=== PATIENT | female | born 1945 | race Caucasian/White ===

== ENCOUNTER 2017-05-20 08:22 | Day surgery (SDC) | payer OTHER ==
[2017-05-13 14:37] VITALS: BMI 25.0
[2017-05-20 08:38] VITALS: TEMP 98
[2017-05-20] MEDS ORDERED: PROPOFOL 20 ML ONE (09:24)
[2017-05-20 10:54] VITALS: BP 115/72; PULSE 66
--- NOTE | 2017-05-25 16:30 | PATH ---
Surgical Pathology Report Patient Name: [facility]. Rec. #: [id number] /Age/Gender: 1945 (Age: 71) / F Account: [id number] Location: [facility] [place]-ENDOSCOPY Taken: 05/20/2017 Received: 05/20/2017 Reported: 05/25/2017 Physicians: Murtaza Wharton M.D. Specimen(s) Received A: BX DUODENUM B: BX ANTRUM Clinical History GERD, family history of colonic polyps Gastritis, rule out celiac disease Final Diagnosis A. DUODENUM, BIOPSY: DUODENAL MUCOSA WITH NO PATHOLOGIC FINDINGS. Note: Features suggestive of celiac disease are not identified in this biopsy. B. ANTRUM, BIOPSY: MILD CHRONIC GASTRITIS. IMMUNOSTAIN IS NEGATIVE FOR H PYLORI ORGANISMS. Electronically Signed Judy Lopez M.D. Gross Description A. Received in formalin, labeled "duodenum" are 2 wilson, irregular portions of soft tissue measuring 0.3 and 0.5 cm. in greatest dimension. The specimens are submitted in toto in one cassette. B. Received in formalin, labeled "antrum" are 2 wilson, irregular portions of soft tissue averaging 0.3 cm. in greatest dimension. The specimens are submitted in toto in one cassette. 05/21/201705/21/2017
== END 2017-05-20 10:40 | disposition home or self-care (01) ==
LOC: FASU-ENDO 08:22
PROVIDERS: ATTEND Internal Medicine Gastroenterology
PROC: 0DB68ZX Excision of Stomach, Via Natural or Artificial Opening Endoscopic, Diagnostic (ICD-10-PCS; 2017-05-20)
PROC: 0DJD8ZZ Inspection of Lower Intestinal Tract, Via Natural or Artificial Opening Endoscopic (ICD-10-PCS; principal; 2017-05-20 09:27)
PROC: 0DB98ZX Excision of Duodenum, Via Natural or Artificial Opening Endoscopic, Diagnostic (ICD-10-PCS; 2017-05-20 09:27)
DX: Z12.11 Encounter for screening for malignant neoplasm of colon (principal); Z80.0 Family history of malignant neoplasm of digestive organs; K57.30 Diverticulosis of large intestine without perforation or abscess without bleeding; K29.50 Unspecified chronic gastritis without bleeding; K44.9 Diaphragmatic hernia without obstruction or gangrene
CPT/HCPCS: 43239; G0105; 88305-TC; 88342-TC

== ENCOUNTER 2018-05-24 13:47 | Inpatient (IN) | payer OTHER ==
--- NOTE | 2018-05-24 14:14 | PDOC ---
History of Present Illness - General Chief Complaint: Respiratory Stated Complaint: RESPIRATORY Time Seen by Provider: 05/24/18 14:12 History Source: Patient - History of Present Illness Timing/Duration: reports: other Severity: reports: moderate Associated Symptoms: reports: chest pain/soreness, cough, fever/chills, muscle aches, shortness of breath. denies: earache, headache, nasal congestion, nasal drainage, sore throat, wheezing Past History - Past Medical History Allergies/Adverse Reactions: Allergies Allergy/AdvReac Type Severity Reaction Status Date / Time codeine AdvReac Mild N&V Verified 05/24/18 13:58 SEASONAL ALLERGIES Allergy Mild Cough Uncoded 05/24/18 13:58 Home Medications: Ambulatory Orders Albuterol Sulfate Inhaler - [Ventolin Hfa Inhaler -] 2 inh PO BID 05/24/18 Azithromycin 250 mg PO 05/24/18 Fluticasone Propionate [Flovent Diskus] 100 mcg IH 05/24/18 Anemia: No Asthma: No Cancer: Yes (L breast) Cardiac Disorders: No CVA: No COPD: No CHF: No Dementia: No Diabetes: No GI Disorders: Yes (GERD,bleeding ulcer) Disorders: No HTN: Yes Hypercholesterolemia: No Liver Disease: No Seizures: No Thyroid Disease: No - Surgical History Abdominal Surgery: Yes (HERNIA REPAIR) Appendectomy: Yes Cardiac Surgery: No Cholecystectomy: No Lung Surgery: No Neurologic Surgery: Yes (brain tumor) Orthopedic Surgery: No - Suicide/Smoking/Psychosocial Hx Smoking History: Never smoked Have you smoked in the past 12 months: No Hx Alcohol Use: Yes (socially) Drug/Substance Use Hx: No Substance Use Type: Alcohol Hx Substance Use Treatment: No Review of Systems - Review of Systems Constitutional: Yes: Chills, Fever Respiratory: Yes: Cough, Shortness of Breath. No: Wheezing Cardiac (ROS): Yes: Chest Pain ABD/GI: No: Diarrhea, Nausea, Vomiting *Physical Exam - Vital Signs Last Vital Signs Temp Pulse Resp BP Pulse Ox 98 F 125 H 17 156/74 95 05/24/18 13:58 05/24/18 13:58 05/24/18 13:58 05/24/18 13:58 05/24/18 13:58 - Physical Exam General Appearance: Yes: Appropriately Dressed. No: Apparent Distress HEENT: positive: Normal Voice Neck: positive: Supple. negative: Lymphadenopathy (R), Lymphadenopathy (L) Respiratory/Chest: positive: Lungs Clear, Normal Breath Sounds. negative: Respiratory Distress Cardiovascular: positive: S1, S2, Tachycardia Gastrointestinal/Abdominal: positive: Soft. negative: Tender Extremity: positive: Normal Inspection. negative: Tender, Pedal Edema Integumentary: positive: Dry, Warm Neurologic: positive: Fully Oriented, Alert, Normal Mood/Affect ED Treatment Course - LABORATORY CBC & Chemistry Diagram: 05/24/18 14:14 05/24/18 14:14 - RADIOLOGY Radiology Studies Ordered: Category Date Time Status CHEST X-RAY PORTABLE* [RAD] Stat Radiology 05/24/18 14:13 Ordered Medical Decision Making - Medical Decision Making 05/24/18 14:20 72-year-old female, history of breast cancer s/p tx remotely, HTN, here w/ mostly non-productive cough with pleuritic CP, sob, fever of 101, body aches and malaise x several days that started while she was in [facility] on vacation. Patient returned yesterday and was seen by her doctor who started her on albuterol pump, flovent, and Z-Pack with no relief per patient. Also had CXR done but states she does not know what it showed. States while in [facility], her dad from PNA and that she visited him in the ICU. No abdominal pain, diarrhea, nausea or vomiting. No palpitations, leg pain or swelling. No history of tobacco use See exam R/o PNA, less likely PE or cardiac Tachy to 125 in ED and afebrile in NAD w/ clear chest/lungs -IVF -ekg -cxr -labs including dimer -dispo pending 05/24/18 16:25 PNA on x-ray with lactate of 2.6. Abx for CAP and IVF in progress. Will repeat lactate at this time. Rest of labs including ddimer neg. Pt sating 97% on NC and appears comfortable at this time. Hospitalist contacted and pt admitted *DC/Admit/Observation/Transfer Diagnosis at time of Disposition: Pneumonia Qualifiers: Pneumonia type: due to unspecified organism Laterality: unspecified laterality Lung location: unspecified part of lung Qualified Code(s): J18.9 - Pneumonia, unspecified organism Sepsis Qualifiers: Sepsis type: sepsis due to unspecified organism Qualified Code(s): A41.9 - Sepsis, unspecified organism - Discharge Dispostion Condition at time of disposition: Fair Decision to Admit order: Yes - Referrals - Patient Instructions - Post Discharge Activity
[2018-05-24] MEDS ORDERED: ALBUTEROL SO4 2.5/IPRATROPIUM 0.5 INH SOL 3 ML VIAL.NEB. NEB ONE (14:33)
[2018-05-24 14:48] LABS: BASO % 0.8 % (0-2.0); EOS % 3.3 % (0-4.5); HEMATOCRIT 37.7 % (32.4-45.2); HEMOGLOBIN 13.4 GM/dL (10.7-15.3); LYMPH % 34.9 % (8-40); MCH 33.2 pg (25.7-33.7); MCHC 35.6 g/dl (32.0-36.0); MEAN CELL VOLUME 93.2 fl (80-96); MEAN PLT VOLUME 8.1 fl (7.5-11.1); MONO % 5.3 % (3.8-10.2); NEUT % 55.7 % (42.8-82.8); PLATELET COUNT 182 K/MM3 (134-434); RBC 4.04 M/mm3 (3.60-5.2); RDW 12.6 % (11.6-15.6); WHITE BLOOD COUNT 5.7 K/mm3 (4.0-10.0)
[2018-05-24 15:14] LABS: INR 1.19 (0.82-1.09); PROTHROMBIN TIME (PATIENT) 13.4 SEC (9.7-13.0)
[2018-05-24 15:17] LABS: ACTIVATED PTT 27.6 SECONDS (25.2-36.5)
[2018-05-24 15:20] LABS: ALBUMIN 3.9 g/dl (3.4-5.0); ANION GAP 10 (8-16); BILIRUBIN,TOTAL 0.5 mg/dL (0.2-1.0); BLOOD UREA NITROGEN 16 mg/dL (7-18); CALCIUM 9.6 mg/dL (8.5-10.1); CHLORIDE 100 mmol/L (98-107); CO2 32 mmol/L (21-32); CREATININE 0.9 mg/dL (0.55-1.02); GLUCOSE,RANDOM 172 mg/dL (74-106); POTASSIUM 3.1 mmol/L (3.5-5.1); SGOT/AST 32 U/L (15-37); SGPT/ALT 39 U/L (12-78); SODIUM 142 mmol/L (136-145); TOT PROT 7.6 g/dl (6.4-8.2)
[2018-05-24 15:23] LABS: ALK PHOS 50 U/L (45-117)
[2018-05-24] MEDS ORDERED: CEFTRIAXONE 1,000 MG in DEXTROSE 5%-WATER - 50 ML IVPB ONE (15:27)
[2018-05-24] MEDS ORDERED: ACETAMINOPHEN 1000 MG/100 ML VIAL (NON FORMULARY) IVPB ONE (15:27)
[2018-05-24] MEDS ORDERED: AZITHROMYCIN IVPB 500 MG in DEXTROSE 5%-WATER - 250 ML IVPB ONE (15:27)
--- NOTE | 2018-05-24 15:27 | PDOC ---
*Physical Exam - Vital Signs Last Vital Signs Temp Pulse Resp BP Pulse Ox 98 F 125 H 17 156/74 95 05/24/18 13:58 05/24/18 13:58 05/24/18 13:58 05/24/18 13:58 05/24/18 14:55 - Physical Exam Comments: 05/24/18 15:20 Heart rate 110, O2 sat 96% on room air Productive cough, otherwise speaking full sentences, tachypneic Lungs have coarse breath sounds throughout, decreased at both bases. There is end expiratory wheezing bilaterally, no accessory muscle use Heart is regular tachycardia Abdomen is benign No lower extremity pitting edema or calf tenderness Heart Score/ECG Review #1 ECG reviewed & interpreted by me at: 14:18 General ECG Interpretation: Sinus Rhythm, Normal Rate (110), Normal Intervals ( qtc 468), No acute ischemic changes ED Treatment Course - LABORATORY CBC & Chemistry Diagram: 05/24/18 14:14 05/24/18 14:14 - ADDITIONAL ORDERS Additional order review: Laboratory Results 05/24/18 14:41 PT with INR 13.40 H INR 1.19 H PTT (Actin FS) 27.6 05/24/18 14:14 RBC 4.04 MCV 93.2 MCHC 35.6 RDW 12.6 MPV 8.1 Neutrophils % 55.7 Lymphocytes % 34.9 Monocytes % 5.3 Eosinophils % 3.3 Basophils % 0.8 Medical Decision Making - Critical Care Time Total Critical Care Time (minutes): 30 Critical Care Statement: The care of this patient involved high complexity decision making to prevent further life threatening deterioration of the patient 's condition and/or to evaluate & treat vital organ system(s) failure or risk of failure. - Medical Decision Making 05/24/18 15:21 Patient seen and evaluated with the nurse practitioner. I agree with the overall evaluation, assessment, and management with the following summary of visit: This is a 72-year-old female with history of hypertension and breast CA status post resection and chemotherapy, was in her usual state of normal health until she travel to [facility] last week to visit sick family members, while there developed URI symptoms of nasal congestion/rhinorrhea and productive cough, returned yesterday and was having subjective fevers and chills so she was seen by her primary clinic where she was started on azithromycin and nebulizers, which is not improved her symptoms she presents here today complaining of persistent cough, shortness of breath, and feeling jittery after the nebulizers. No actual chest pain, no unilateral leg swelling or pain. Exam as noted 72-year-old female with URI symptoms, progressive cough with shortness of breath. Presentation is most concerning acute bronchitis with superimposed pneumonia. Given the recent travel, will rule out PE given the tachycardia. labs including ddimer ekg, cxr prednisone, nebs likely admit 05/24/18 16:02 No leukocytosis, white count 5.7. Lactate 2.6, but chemistries are otherwise within normal limits including troponin. D-dimer still pending. On my preliminary review of the chest x-ray, there appears to be a opacity obscuring the left heart border, suspicious for left-sided pneumonia. Started empirically on ceftriaxone and azithromycin for community-acquired pneumonia, still dyspneic but improved after nebulizers, comfortable on 2 L oxygen satting 97% on room air and now comfortably asleep. We'll move forward with admission to telemetry, but will follow-up d-dimer and CT if needed. 05/24/18 16:19 IVF resuscitation given elevated lactate. ddimer negative. vitals improved, will proceed with admission to [facility]. *DC/Admit/Observation/Transfer Diagnosis at time of Disposition: Cough, Shortness of breath - Discharge Dispostion Condition at time of disposition: Fair - Referrals - Patient Instructions - Post Discharge Activity
[2018-05-24] MEDS ORDERED: ACETAMINOPHEN INJECTION 100 ML IVPB ONE (15:30)
[2018-05-24] MEDS ORDERED: CEFTRIAXONE 1 GM/50 ML BAG ONE (15:31)
[2018-05-24] MEDS ORDERED: AZITHROMYCIN IVPB 250 ML IVPB ONE (15:31)
[2018-05-24 15:32] LABS: VENOUS PC02 45.5 mmHg (38-52); VENOUS PH 7.46 (7.32-7.42); VENOUS PO2 35.5 mmHg (28-48)
--- NOTE | 2018-05-24 15:51 | EKG ---
Test Reason : Blood Pressure : / mmHG Vent. Rate : 110 BPM Atrial Rate : 110 BPM P-R Int : 132 ms QRS Dur : 080 ms QT Int : 346 ms P-R-T Axes : 044 -04 043 degrees QTc Int : 468 ms SINUS TACHYCARDIA OTHERWISE NORMAL ECG WHEN COMPARED WITH ECG OF 08-APR-2011 03:49, NO SIGNIFICANT CHANGE WAS FOUND Confirmed by Saw Andres MD ([id number]) on 05/24/2018 3:51:20 PM Referred By: Confirmed By:Saw Andres MD
[2018-05-24] MEDS ORDERED: SODIUM CHLORIDE 500 ML IV STA (16:04)
[2018-05-24] MEDS ORDERED: predniSONE 20 MG TABLET (UD) PO ONE (16:26)
[2018-05-24] MEDS ORDERED: POTASSIUM CHLORIDE TABS 20 MEQ TABLET.ER (FP) PO ONE ×3 (16:30→22:30)
--- NOTE | 2018-05-24 16:31 | HP ---
CHIEF COMPLAINT: PCP: HISTORY OF PRESENT ILLNESS: 72 year-old female with a PMH significant for HTN and breast cancer s/p resection and chemotherapy. Traveled to [facility] last week to visit sick family member(s) in the ICU. While there developed URI symptoms of nasal congestion/rhinorrhea and productive cough. Returned to [place] yesterday and was experiencing subjective fever and chills. Seen at her primary clinic and was started on azithromycin and nebulizers, but presented today with persistent cough and SOB. ER course was notable for: (1) Tm 101 (per ELBA Encarnacion's note), p125, lactic acid 2.6 (2) K 3.1 (3) NS x 500mL x 1 (4) azithro x 1 dose; ceftriaxone x 1 dose Recent Travel: [facility] in past week visiting ICU patient PAST MEDICAL HISTORY: Hypertension Breast cancer s/p radiation GERD h/o bleeding ulcer PAST SURGICAL HISTORY: Breast cancer resection Hernia repair Brain tumor resection Social History: Smoking: never Alcohol: social Drugs: no Family History: Allergies codeine Adverse Reaction (Mild, Verified 05/24/18 13:58) N&V SEASONAL ALLERGIES Allergy (Mild, Uncoded 05/24/18 13:58) Cough HOME MEDICATIONS: Home Medications Medication Instructions Recorded Albuterol Sulfate Inhaler - 2 inh PO BID 05/24/18 [Ventolin Hfa Inhaler -] Azithromycin 250 mg PO 05/24/18 Fluticasone Propionate [Flovent 100 mcg IH 05/24/18 Diskus] REVIEW OF SYSTEMS CONSTITUTIONAL: +fever, chills Absent: fever, chills, diaphoresis, generalized weakness, malaise, loss of appetite, weight change HEENT: Absent: rhinorrhea, nasal congestion, throat pain, throat swelling, difficulty swallowing, mouth swelling, ear pain, eye pain, visual changes CARDIOVASCULAR: Absent: chest pain, syncope, palpitations, irregular heart rate, lightheadedness , peripheral edema RESPIRATORY: +cough, SOB Absent: cough, shortness of breath, dyspnea with exertion, orthopnea, wheezing, stridor, hemoptysis GASTROINTESTINAL: Absent: abdominal pain, abdominal distension, nausea, vomiting, diarrhea, constipation, melena, hematochezia GENITOURINARY: Absent: dysuria, frequency, urgency, hesitancy, hematuria, flank pain, genital pain MUSCULOSKELETAL: Absent: myalgia, arthralgia, joint swelling, back pain, neck pain SKIN: Absent: rash, itching, pallor HEMATOLOGIC/IMMUNOLOGIC: Absent: easy bleeding, easy bruising, lymphadenopathy, frequent infections ENDOCRINE: Absent: unexplained weight gain, unexplained weight loss, heat intolerance, cold intolerance NEUROLOGIC: Absent: headache, focal weakness or paresthesias, dizziness, unsteady gait, seizure, mental status changes, bladder or bowel incontinence PSYCHIATRIC: Absent: anxiety, depression, suicidal or homicidal ideation, hallucinations. PHYSICAL EXAMINATION Vital Signs - 24 hr 05/24/18 05/24/18 13:58 14:55 Temperature 98 F Pulse Rate 125 H Respiratory 17 Rate Blood Pressure 156/74 O2 Sat by Pulse 95 95 Oximetry (%) GENERAL: Awake, alert, and fully oriented, in no acute distress. HEAD: Normal with no signs of trauma. EYES: Pupils equal, round and reactive to light, extraocular movements intact, sclera anicteric, conjunctiva clear. No lid lag. EARS, NOSE, THROAT: Ears normal, nares patent, oropharynx clear without exudates. Moist mucous membranes. NECK: Normal range of motion, supple without lymphadenopathy, JVD, or masses. LUNGS: Breath sounds equal, clear to auscultation bilaterally. No wheezes, and no crackles. No accessory muscle use. HEART: Regular rate and rhythm, normal S1 and S2 without murmur, rub or gallop. ABDOMEN: Soft, nontender, not distended, normoactive bowel sounds, no guarding, no rebound, no masses. No hepatomegaly or splenomegaly. MUSCULOSKELETAL: Normal range of motion at all joints. No bony deformities or tenderness. No CVA tenderness. UPPER EXTREMITIES: 2+ pulses, warm, well-perfused. No cyanosis. No clubbing. No peripheral edema. LOWER EXTREMITIES: 2+ pulses, warm, well-perfused. No calf tenderness. No peripheral edema. NEUROLOGICAL: Cranial nerves II-XII intact. Normal speech. Normal gait. Laboratory Results - last 24 hr 05/24/18 05/24/18 05/24/18 14:14 14:14 14:14 WBC 5.7 RBC 4.04 Hgb 13.4 Hct 37.7 MCV 93.2 MCH 33.2 MCHC 35.6 RDW 12.6 Plt Count 182 MPV 8.1 Absolute Neuts (auto) 3.2 Neutrophils % 55.7 Lymphocytes % 34.9 Monocytes % 5.3 Eosinophils % 3.3 Basophils % 0.8 Nucleated RBC % 0 PT with INR INR PTT (Actin FS) D-Dimer VBG pH POC VBG pCO2 POC VBG pO2 Mixed VBG HCO3 Sodium 142 Potassium 3.1 L Chloride 100 Carbon Dioxide 32 Anion Gap 10 BUN 16 Creatinine 0.9 Creat Clearance w eGFR > 60 Random Glucose 172 H Lactic Acid Calcium 9.6 Total Bilirubin 0.5 AST 32 ALT 39 Alkaline Phosphatase 50 Creatine Kinase 49 Troponin I < 0.02 B-Natriuretic Peptide 393.23 H Total Protein 7.6 Albumin 3.9 05/24/18 05/24/18 05/24/18 14:41 14:41 14:41 WBC RBC Hgb Hct MCV MCH MCHC RDW Plt Count MPV Absolute Neuts (auto) Neutrophils % Lymphocytes % Monocytes % Eosinophils % Basophils % Nucleated RBC % PT with INR 13.40 H INR 1.19 H PTT (Actin FS) 27.6 D-Dimer 424 VBG pH 7.46 H POC VBG pCO2 45.5 POC VBG pO2 35.5 Mixed VBG HCO3 32.1 H Sodium Potassium Chloride Carbon Dioxide Anion Gap BUN Creatinine Creat Clearance w eGFR Random Glucose Lactic Acid Calcium Total Bilirubin AST ALT Alkaline Phosphatase Creatine Kinase Troponin I B-Natriuretic Peptide Total Protein Albumin 05/24/18 14:46 WBC RBC Hgb Hct MCV MCH MCHC RDW Plt Count MPV Absolute Neuts (auto) Neutrophils % Lymphocytes % Monocytes % Eosinophils % Basophils % Nucleated RBC % PT with INR INR PTT (Actin FS) D-Dimer VBG pH POC VBG pCO2 POC VBG pO2 Mixed VBG HCO3 Sodium Potassium Chloride Carbon Dioxide Anion Gap BUN Creatinine Creat Clearance w eGFR Random Glucose Lactic Acid 2.6 H* Calcium Total Bilirubin AST ALT Alkaline Phosphatase Creatine Kinase Troponin I B-Natriuretic Peptide Total Protein Albumin ASSESSMENT/PLAN: 72 year-old female with a PMH significant for HTN and breast cancer s/p resection and chemotherapy. Admitted for severe sepsis likely secondary to pneumonia. Severe sepsis likely secondary to pneumonia --Tm 101, p 125, lactic acid 2.6-->2.4, possible left-sided pneumonia v bronchitis, CXR official read unremarkable --azithro (day #1), ceftriaxone (day #1) --duonebs scheduled; albuterol neb PRN --Solumedrol 40mg q6h --NS 500 x 1 in ED; give another 1L now, then hourly rate --repeat lactic acid in 6 hours --ABG SOB, tachycardia --likely secondary to sepsis --d-dimer negative Hypertension --BP stable --not on anti-hypertensives Breast cancer --no acute issues Hypokalemia --repleted FEN Fluids: PO intake adequate Electrolytes: replete as indicated Nutrition: low sodium DVT prophylaxis: subq lovenox Physical therapy Dispo: continues to require inpatient care. Full code. Visit type - Emergency Visit Emergency Visit: Yes ED Registration Date: 05/24/18 Care time: The patient presented to the Emergency Department on the above date and was hospitalized for further evaluation of their emergent condition. - New Patient This patient is new to me today: Yes Date on this admission: 05/25/18 - Critical Care Critical Care patient: No Hospitalist Screening - Colonoscopy Questionnaire Colonoscopy Questionnaire: Colonoscopy Questionnaire - Patient: 50 - 75 years old and never had a screening colonoscopy: Unknown History of colon or rectal polyps, or CA: Unknown History of IBD, Crohn's disease or UC: Unknown History of abdominal radiation therapy as a child: Unknown - Relative: 1 with colon or rectal CA, or polyps at age 60 or younger: Unknown Colon or rectal CA diagnosed at age 45 or younger: Unknown Multiple relatives with colon or rectal CA: Unknown - Outcome: Screening Result: Negative Screen
[2018-05-24] MEDS ORDERED: predniSONE 20 MG TABLET (UD) ONE (16:34)
[2018-05-24] MEDS ORDERED: methylPREDNISolone NA SUCC 125 MG/2 ML VIAL IVPB ONE (16:37)
[2018-05-24] MEDS ORDERED: methylPREDNISolone NA SUCC 125 MG/2 ML VIAL ONE (16:40)
[2018-05-24 16:42] LABS: URINE APPEARANCE CLEAR; URINE BILIRUBIN NEGATIVE (<2.0 mg/dL); URINE COLOR LTYELLOW; URINE GLUCOSE (UA) NEGATIVE (NEGATIVE); URINE KETONE NEGATIVE (NEGATIVE); URINE LEUK ESTERASE NEGATIVE (NEGATIVE); URINE NITRITE NEGATIVE (NEGATIVE); URINE PROTEIN NEGATIVE (NEGATIVE); URINE UROBILINOGEN NEGATIVE mg/dL (0.2-1.0)
[2018-05-24] MEDS ORDERED: KCL 10 MEQ IVPB 10 MEQ/100 ML INFUS.BAG IVPB SCH (16:45)
[2018-05-24] MEDS ORDERED: SODIUM CHLORIDE 1,000 ML IV STA (17:55)
[2018-05-24] MEDS ORDERED: ALBUTEROL SO4 0.083% IH SOL 2.5 MG/3 ML VIAL.NEB. NEB PRN (17:56)
[2018-05-24 18:21] VITALS: BMI 26.2
[2018-05-24] MEDS: POTASSIUM CHLORIDE TABS 20 MEQ TABLET.ER (FP) PO SCH (18:55)
[2018-05-24] MEDS ORDERED: SODIUM CHLORIDE 1,000 ML IV SCH (19:00)
[2018-05-24] MEDS: ALBUTEROL SO4 2.5/IPRATROPIUM 0.5 INH SOL 3 ML VIAL.NEB. NEB SCH ×2 (19:00→22:28)
[2018-05-24 22:24] LABS: ARTERIAL BLD GAS O2 SATURATION 97.7 % (90-98.9); ARTERIAL BLOOD GAS BASE EXCESS 1.5 meq/l (-2-2); ARTERIAL BLOOD GAS PCO2 34.7 mmHg (35-45); ARTERIAL BLOOD GAS PO2 91.1 mmHg (70-100); ARTERIAL BLOOD GAS pH 7.46 (7.35-7.45)
[2018-05-24 22:25] LABS: ALLENS TEST POSITIVE
[2018-05-24] MEDS: methylPREDNISolone NA SUCC 40 MG/1 ML VIAL IVPUSH SCH (22:37)
[2018-05-25] MEDS: POTASSIUM CHLORIDE TABS 20 MEQ TABLET.ER (FP) PO SCH (00:19)
[2018-05-25] MEDS ORDERED: SODIUM CHLORIDE 500 ML IV STA (00:22)
[2018-05-25] MEDS: ALBUTEROL SO4 2.5/IPRATROPIUM 0.5 INH SOL 3 ML VIAL.NEB. NEB SCH ×2 (01:26→06:25)
[2018-05-25] MEDS: methylPREDNISolone NA SUCC 40 MG/1 ML VIAL IVPUSH SCH ×2 (05:49→10:07)
[2018-05-25 06:37] LABS: BASO % 0.2 % (0-2.0); HEMATOCRIT 33.5 % (32.4-45.2); HEMOGLOBIN 11.9 GM/dL (10.7-15.3); LYMPH % 9.5 % (8-40); MCH 33.5 pg (25.7-33.7); MCHC 35.5 g/dl (32.0-36.0); MEAN CELL VOLUME 94.5 fl (80-96); MEAN PLT VOLUME 8.1 fl (7.5-11.1); MONO % 1.5 % (3.8-10.2); NEUT % 88.8 % (42.8-82.8); PLATELET COUNT 163 K/MM3 (134-434); RBC 3.55 M/mm3 (3.60-5.2); RDW 12.7 % (11.6-15.6); WHITE BLOOD COUNT 10.2 K/mm3 (4.0-10.0)
[2018-05-25 07:09] LABS: CHLORIDE 105 mmol/L (98-107); POTASSIUM 3.2 mmol/L (3.5-5.1); SODIUM 140 mmol/L (136-145)
[2018-05-25 07:20] LABS: ALBUMIN 3.4 g/dl (3.4-5.0); ALK PHOS 47 U/L (45-117); ANION GAP 15 (8-16); BILIRUBIN,TOTAL 0.3 mg/dL (0.2-1.0); BLOOD UREA NITROGEN 13 mg/dL (7-18); CALCIUM 8.3 mg/dL (8.5-10.1); CO2 20 mmol/L (21-32); CREATININE 1.2 mg/dL (0.55-1.02); GLUCOSE,RANDOM 238 mg/dL (74-106); MAGNESIUM 1.5 mg/dL (1.8-2.4); SGOT/AST 23 U/L (15-37); SGPT/ALT 36 U/L (12-78); TOT PROT 7.1 g/dl (6.4-8.2)
--- NOTE | 2018-05-25 07:32 | PN ---
Physical Exam: SUBJECTIVE: Patient seen and examined. Complains of chest tightness, chest hurts from coughing. Has had the shakes from the nebulizer. OBJECTIVE: Vital Signs Period Temp Pulse Resp BP Sys/Ovalle Pulse Ox Last 24 Hr 98 F-98.5 F 88-125 17-20 133-160/74-88 94-98 GENERAL: Awake, alert, and fully oriented, in no acute distress. LUNGS: Good effort but poor air movement with diffuse wheezing HEART: Regular rate and rhythm, normal S1 and S2 ABDOMEN: Soft, nontender, not distended, normoactive bowel sounds, no guarding, no rebound MUSCULOSKELETAL: Normal range of motion at all joints. No bony deformities or tenderness. No CVA tenderness. UPPER EXTREMITIES: 2+ pulses, warm, well-perfused. No cyanosis. No clubbing. No peripheral edema. LOWER EXTREMITIES: 2+ pulses, warm, well-perfused. No calf tenderness. No peripheral edema. No calf tenderness. NEUROLOGICAL: Cranial nerves II-XII intact. Normal speech. Laboratory Results - last 24 hr 05/24/18 05/24/18 05/24/18 14:14 14:14 14:14 WBC 5.7 RBC 4.04 Hgb 13.4 Hct 37.7 MCV 93.2 MCH 33.2 MCHC 35.6 RDW 12.6 Plt Count 182 MPV 8.1 Absolute Neuts (auto) 3.2 Neutrophils % 55.7 Lymphocytes % 34.9 Monocytes % 5.3 Eosinophils % 3.3 Basophils % 0.8 Nucleated RBC % 0 PT with INR INR PTT (Actin FS) D-Dimer Puncture Site ABG pH ABG pCO2 at Pt Temp ABG pO2 at Pt Temp ABG HCO3 ABG O2 Sat (Measured) ABG O2 Content ABG Base Excess Kingsley Test VBG pH POC VBG pCO2 POC VBG pO2 Mixed VBG HCO3 O2 Delivery Device Oxygen Flow Rate Sodium 142 Potassium 3.1 L Chloride 100 Carbon Dioxide 32 Anion Gap 10 BUN 16 Creatinine 0.9 Creat Clearance w eGFR > 60 Random Glucose 172 H Lactic Acid Calcium 9.6 Total Bilirubin 0.5 AST 32 ALT 39 Alkaline Phosphatase 50 Creatine Kinase 49 Troponin I < 0.02 B-Natriuretic Peptide 393.23 H Total Protein 7.6 Albumin 3.9 Urine Color Urine Appearance Urine pH Ur Specific [place] Urine Protein Urine Glucose (UA) Urine Ketones Urine Blood Urine Nitrite Urine Bilirubin Urine Urobilinogen Ur Leukocyte Esterase 05/24/18 05/24/18 05/24/18 14:41 14:41 14:41 WBC RBC Hgb Hct MCV MCH MCHC RDW Plt Count MPV Absolute Neuts (auto) Neutrophils % Lymphocytes % Monocytes % Eosinophils % Basophils % Nucleated RBC % PT with INR 13.40 H INR 1.19 H PTT (Actin FS) 27.6 D-Dimer 424 Puncture Site ABG pH ABG pCO2 at Pt Temp ABG pO2 at Pt Temp ABG HCO3 ABG O2 Sat (Measured) ABG O2 Content ABG Base Excess Kingsley Test VBG pH 7.46 H POC VBG pCO2 45.5 POC VBG pO2 35.5 Mixed VBG HCO3 32.1 H O2 Delivery Device Oxygen Flow Rate Sodium Potassium Chloride Carbon Dioxide Anion Gap BUN Creatinine Creat Clearance w eGFR Random Glucose Lactic Acid Calcium Total Bilirubin AST ALT Alkaline Phosphatase Creatine Kinase Troponin I B-Natriuretic Peptide Total Protein Albumin Urine Color Urine Appearance Urine pH Ur Specific [place] Urine Protein Urine Glucose (UA) Urine Ketones Urine Blood Urine Nitrite Urine Bilirubin Urine Urobilinogen Ur Leukocyte Esterase 05/24/18 05/24/18 05/24/18 14:46 16:27 17:09 WBC RBC Hgb Hct MCV MCH MCHC RDW Plt Count MPV Absolute Neuts (auto) Neutrophils % Lymphocytes % Monocytes % Eosinophils % Basophils % Nucleated RBC % PT with INR INR PTT (Actin FS) D-Dimer Puncture Site ABG pH ABG pCO2 at Pt Temp ABG pO2 at Pt Temp ABG HCO3 ABG O2 Sat (Measured) ABG O2 Content ABG Base Excess Kingsley Test VBG pH POC VBG pCO2 POC VBG pO2 Mixed VBG HCO3 O2 Delivery Device Oxygen Flow Rate Sodium Potassium Chloride Carbon Dioxide Anion Gap BUN Creatinine Creat Clearance w eGFR Random Glucose Lactic Acid 2.6 H* 2.4 H* Calcium Total Bilirubin AST ALT Alkaline Phosphatase Creatine Kinase Troponin I B-Natriuretic Peptide Total Protein Albumin Urine Color Ltyellow Urine Appearance Clear Urine pH 6.0 Ur Specific [place] 1.017 Urine Protein Negative Urine Glucose (UA) Negative Urine Ketones Negative Urine Blood Negative Urine Nitrite Negative Urine Bilirubin Negative Urine Urobilinogen Negative Ur Leukocyte Esterase Negative 05/24/18 05/24/18 05/25/18 21:30 22:01 06:00 WBC 10.2 H RBC 3.55 L Hgb 11.9 Hct 33.5 MCV 94.5 MCH 33.5 MCHC 35.5 RDW 12.7 Plt Count 163 MPV 8.1 Absolute Neuts (auto) 9.0 Neutrophils % 88.8 H D Lymphocytes % 9.5 D Monocytes % 1.5 L Eosinophils % 0.0 D Basophils % 0.2 Nucleated RBC % 0 PT with INR INR PTT (Actin FS) D-Dimer Puncture Site Right radial ABG pH 7.46 H ABG pCO2 at Pt Temp 34.7 L ABG pO2 at Pt Temp 91.1 ABG HCO3 24.5 ABG O2 Sat (Measured) 97.7 ABG O2 Content 16.1 ABG Base Excess 1.5 Kingsley Test Positive VBG pH POC VBG pCO2 POC VBG pO2 Mixed VBG HCO3 O2 Delivery Device N/c Oxygen Flow Rate 2 Sodium Potassium Chloride Carbon Dioxide Anion Gap BUN Creatinine Creat Clearance w eGFR Random Glucose Lactic Acid 4.7 H* Calcium Total Bilirubin AST ALT Alkaline Phosphatase Creatine Kinase Troponin I B-Natriuretic Peptide Total Protein Albumin Urine Color Urine Appearance Urine pH Ur Specific [place] Urine Protein Urine Glucose (UA) Urine Ketones Urine Blood Urine Nitrite Urine Bilirubin Urine Urobilinogen Ur Leukocyte Esterase 05/25/18 06:00 WBC RBC Hgb Hct MCV MCH MCHC RDW Plt Count MPV Absolute Neuts (auto) Neutrophils % Lymphocytes % Monocytes % Eosinophils % Basophils % Nucleated RBC % PT with INR INR PTT (Actin FS) D-Dimer Puncture Site ABG pH ABG pCO2 at Pt Temp ABG pO2 at Pt Temp ABG HCO3 ABG O2 Sat (Measured) ABG O2 Content ABG Base Excess Kingsley Test VBG pH POC VBG pCO2 POC VBG pO2 Mixed VBG HCO3 O2 Delivery Device Oxygen Flow Rate Sodium Potassium Chloride Carbon Dioxide Anion Gap BUN Creatinine Creat Clearance w eGFR Random Glucose Lactic Acid 7.7 H* Calcium Total Bilirubin AST ALT Alkaline Phosphatase Creatine Kinase Troponin I B-Natriuretic Peptide Total Protein Albumin Urine Color Urine Appearance Urine pH Ur Specific [place] Urine Protein Urine Glucose (UA) Urine Ketones Urine Blood Urine Nitrite Urine Bilirubin Urine Urobilinogen Ur Leukocyte Esterase Current Medications Generic Name Dose Route Start Last Admin Trade Name Freq PRN Reason Stop Dose Admin Chlorhexidine Gluconate 1 applic 05/25/18 22:00 Hibiclens For Decolonization - TP HS LUANN Enoxaparin Sodium 40 mg 05/25/18 10:00 05/25/18 09:07 Lovenox - SQ 40 mg DAILY LUANN Administration Azithromycin 250 mg/ Dextrose 250 mls @ 250 mls/hr 05/25/18 10:00 IVPB 05/28/18 10:59 DAILY LUANN Ceftriaxone Sodium 1 gm/ 50 mls @ 100 mls/hr 05/25/18 10:00 05/25/18 11:03 Dextrose IVPB 100 mls/hr DAILY LUANN Administration Protocol Potassium Chloride 20 meq/ 1,010 mls @ 42 mls/hr 05/25/18 09:30 05/25/18 10: 03 Dextrose/Sodium Chloride IVPB 42 mls/hr Q24H LUANN Administration Ipratropium [place] 1 amp 05/25/18 11:34 Atrovent 0.02% Nebulizer - NEB 06/01/18 11:34 Q6H PRN DYSPEPSIA Methylprednisolone Sodium Succinate 40 mg 05/24/18 23:00 05/25/18 10:07 Solu-Medrol - IVPUSH 40 mg Q6H LUANN Administration Mupirocin 1 applic 05/25/18 10:00 Bactroban Ointment (For Decolonization) - NS 05/30/18 09:59 BID LUANN ASSESSMENT/PLAN 72 year-old female with a PMH significant for HTN and breast cancer s/p resection and chemotherapy. Admitted for severe sepsis likely secondary to pneumonia. Severe sepsis likely secondary to pneumonia v. bronchitis, possibly viral --afebrile, no leukocytosis --poor air movement and diffuse wheezing persists, titrate O2 >93% --lactic acid continues to elevate >7, possibly Type B from albuterol? serial lactic acids q6h --CT chest, abdomen, pelvis pending --continue azithro (day #2), ceftriaxone (day #2) --flu swab negative --duonebs q6h scheduled; albuterol neb PRN --continue IV steroids --ID and pulmonary following SOB, tachycardia --likely secondary to sepsis --d-dimer negative --EKG: sinus tach @ 146bpm --Echo ordered --continue telemetry monitoring --cardiology consult requested Hypertension --BP stable --not on anti-hypertensives Breast cancer --no acute issues Hypokalemia --repleted Hypomagnesemia --repleted FEN Fluids: D5NS@42mL/hr Electrolytes: replete as indicated Nutrition: low sodium DVT prophylaxis: subq lovenox Physical therapy Dispo: continues to require inpatient care. Full code. Visit type - Emergency Visit Emergency Visit: Yes ED Registration Date: 05/24/18 Care time: The patient presented to the Emergency Department on the above date and was hospitalized for further evaluation of their emergent condition. - New Patient This patient is new to me today: No - Critical Care Critical Care patient: Yes Total Critical Care Time (in minutes): 35 Critical Care Statement: The care of this patient involved high complexity decision making to prevent further life threatening deterioration of the patient 's condition and/or to evaluate & treat vital organ system(s) failure or risk of failure.
[2018-05-25] MEDS ORDERED: POTASSIUM CHLORIDE TABS 20 MEQ TABLET.ER (FP) PO ONE (09:00)
[2018-05-25] MEDS ORDERED: DEXTROSE 5%-WATER - 50 ML IVPB ONE (09:29)
[2018-05-25] MEDS ORDERED: cefTRIAXone SODIUM 1 GM VIAL ONE (09:29)
[2018-05-25] MEDS ORDERED: 1/3 NS IVPB SCH (09:30)
[2018-05-25] MEDS ORDERED: POTASSIUM CHLORIDE IVPB SCH (09:30)
[2018-05-25] MEDS ORDERED: DEXTROSE 5% IVPB SCH (09:30)
[2018-05-25] MEDS ORDERED: AZITHROMYCIN IVPB 250 MG in DEXTROSE 5%-WATER - 250 ML IVPB SCH (10:00)
[2018-05-25] MEDS ORDERED: ENOXAPARIN NA (PORCINE) 40 MG/0.4 ML DISP.SYRIN SQ SCH (10:00)
[2018-05-25] MEDS ORDERED: MAGNESIUM 2GM/50ML STERILE WATER IVPB IVPB ONE (10:00)
[2018-05-25] MEDS ORDERED: MAGNESIUM 1GM/D5W - 1 GM/100 ML IVPB IVPB SCH (10:00)
--- NOTE | 2018-05-25 10:07 | EKG ---
Test Reason : Blood Pressure : / mmHG Vent. Rate : 146 BPM Atrial Rate : 146 BPM P-R Int : 156 ms QRS Dur : 084 ms QT Int : 338 ms P-R-T Axes : 052 003 030 degrees QTc Int : 526 ms SINUS TACHYCARDIA NONSPECIFIC ST AND T WAVE ABNORMALITY ABNORMAL ECG WHEN COMPARED WITH ECG OF 24-MAY-2018 14:18, NONSPECIFIC T WAVE ABNORMALITY NOW EVIDENT IN ANTERIOR LEADS Confirmed by MONCHO ABDI, SOLEDAD ([id number]) on 05/25/2018 10:07:23 AM Referred By: Confirmed By:SOLEDAD IVAN MD
[2018-05-25] MEDS: CEFTRIAXONE 1 GM in DEXTROSE 5%-WATER - 50 ML IVPB SCH (11:03)
--- NOTE | 2018-05-25 11:31 | PN ---
Progress Note (short form) - Note Progress Note: PULMONARY CONSULTATION DICTATED 05/25/18 IMP DYSPNEA/COUGH/CONGESTION ? ACUTE ASTHMATIC BRONCHITIS,?PNEUMONIA,?VIRAL SEPSIS/SIRS ELEVATED LACTATE LEVEL TACHYCARDIA H/O BREST CA H/O MENINGIOMA S/P RESECTION HTN PLAN IV STEROIDS O2 ABX CULTURES IVF TREND LACTATE MONITOR LYTES,RENAL FUNCTION ECHO LEGIONELLA URINARY ANTIGEN DR LONG Problem List - Problems (1) Bronchitis Code(s): J40 - BRONCHITIS, NOT SPECIFIED ACUTE OR CHRONIC (2) Pneumonia Code(s): J18.9 - PNEUMONIA, UNSPECIFIED ORGANISM Qualifiers: Pneumonia type: due to unspecified organism Laterality: unspecified laterality Lung location: unspecified part of lung Qualified Code(s): J18.9 - Pneumonia, unspecified organism (3) Dyspnea and respiratory abnormalities Code(s): R06.00 - DYSPNEA, UNSPECIFIED; R06.89 - OTHER ABNORMALITIES OF BREATHING (4) Lactate blood increased Code(s): R79.89 - OTHER SPECIFIED ABNORMAL FINDINGS OF BLOOD CHEMISTRY (5) Sepsis Code(s): A41.9 - SEPSIS, UNSPECIFIED ORGANISM Qualifiers: Sepsis type: sepsis due to unspecified organism Qualified Code(s): A41.9 - Sepsis, unspecified organism (6) Tachycardia Code(s): R00.0 - TACHYCARDIA, UNSPECIFIED (7) HTN (hypertension) Code(s): I10 - ESSENTIAL (PRIMARY) HYPERTENSION (8) H/O malignant neoplasm of breast Code(s): Z85.3 - PERSONAL HISTORY OF MALIGNANT NEOPLASM OF BREAST
[2018-05-25] MEDS ORDERED: IPRATROPIUM BR 0.02% 0.5 MG/2.5 ML VIAL.NEB. NEB PRN (11:34)
[2018-05-25] MEDS ORDERED: ALBUTEROL SO4 2.5/IPRATROPIUM 0.5 INH SOL 3 ML VIAL.NEB. NEB SCH (12:00)
--- NOTE | 2018-05-25 12:01 | CONS ---
DATE OF CONSULTATION: 05/25/2018 REFERRING PHYSICIAN: Kelsey Ascencio NP HISTORY OF PRESENT ILLNESS: The patient is a 72-year-old white female with a past medical history of breast CA 19 years ago, status post lumpectomy, treated with chemotherapy ,Meningioma s/p resection, history of hypertension and nonsmoker, admitted to [facility] with complaints of a 1-week history of cough, shortness of breath, fever to 101, generalized body ache and malaise which had started for approximately 1 week. Patient also complained of pleuritic chest pain. Patient was recently in [facility]. At the time she started to develop the above symptoms. She states she had chills and had fever. She also noticed increasing shortness of breath, and wheezing. She returned home a couple of days ago and went to a local doctor, was prescribed Flovent, albuterol and Zithromax. Despite these medications she had persistent symptoms at which time she presented to the emergency room. In the ER she was treated with inhaled bronchodilators and steroids and transferred to the medical floor for further management. Of note is she was noted to have elevated lactate level on admission of 2.6,f/u was 7.7. She denies any hemoptysis. Denies any nausea, vomiting or diaphoresis. She does have a history of DVT many years ago. There is no history of pulmonary emboli in the past. She said she had a history of bronchitis in the past. Denies any history of asthma or COPD. She is a nonsmoker and there is no history of occupational exposures to chemicals or fumes in the past. PAST MEDICAL HISTORY: Again includes breast CA, status post lumpectomy, history of a brain tumor resection, meningioma, 19 years ago, history of hernia repair as well as hypertension, GERD, history of bleeding ulcer and phlebitis. REVIEW OF SYSTEMS: Positive shortness of breath. Positive cough. Positive pleuritic chest pain. Positive fever, chills. No hemoptysis. No abdominal pain. No nausea or vomiting. CURRENT MEDICATIONS: Include Solu-Medrol; Zithromax; ceftriaxone; Lovenox; albuterol; Duo-Neb; and KCL. PHYSICAL EXAMINATION: General: The patient is a well-developed, well-nourished female, awake, alert, in no acute respiratory distress. Vital Signs: She is afebrile, her blood pressure is 133/75, her heart rate is 120 and regular and O2 saturation is 97% on 2 L. HEENT: Normocephalic, atraumatic.Neck: Supple. Heart: Tachycardic. S1 and S2. Chest: A few scattered wheezes. Abdomen: Soft. Bowel sounds are positive. Extremities: No cyanosis or edema. LABORATORIES: WBC is 10.2, hemoglobin 11.9, hematocrit 33.5 with a platelet count of 163,000. INR IS 1.19. Blood gas: PH of 7.46, PCO2 of 34, PO2 of 91, a bicarbonate of 24 and a saturation of 97.7. D-dimer is 424, within normal limits. Chemistries: BUN 13, creatinine 1.2. Lactate level of 7.7. Chest x-ray reveals no infiltrates and no effusions. IMPRESSION: 1. Fever, cough, chest congestion, might be possible acute asthmatic bronchitis , possible pneumonia although chest x-ray w/o infiltrates, rule out possible viral etiology. 2. Elevated lactate level, rule out possible sepsis/sirs. 3. History of breast carcinoma, status post lumpectomy and chemotherapy. 4. Hypertension 5. H/O Meningioma s/p resection PLAN: Continue IV steroids. Inhaled bronchodilators. Will change to Atrovent solution since the patient becomes very tremulous as well as tachycardic on albuterol. Antibiotic therapy. Obtain cultures.Legionella urinary antigen, CT scan of the chest. Trend lactate level. IV fluids. Thank you. KAYLA LONG M.D. [id number] MTDD
--- NOTE | 2018-05-25 12:25 | PN ---
Progress Note (short form) - Note Progress Note: ID consult one week history of intermittent fevers and cough while in [facility] visiting her sick father returned on Wednesday and went to see her doctor who started inhalers and gave her a zpak, she felt worse yesterday and came to ED continues to cough and wheeze no recorded fevers here no pets travel to [facility] influenza screen negative no smoking history of chronic cough remote history of breast cancer s/p chemo/RT history of GERD r/o pneumonia r/o viral syndrome bronchospasm- asthmatic bronchitis agree with rocephin/zithromax blood cultures urinary antigens viral panel, rsv chest ct duplex legs- reports intermittent swelling suspect lactic acidosis is due to nebs Problem List - Problems (1) Pneumonia Code(s): J18.9 - PNEUMONIA, UNSPECIFIED ORGANISM Qualifiers: Pneumonia type: due to unspecified organism Laterality: unspecified laterality Lung location: unspecified part of lung Qualified Code(s): J18.9 - Pneumonia, unspecified organism (2) Asthmatic bronchitis Code(s): J45.909 - UNSPECIFIED ASTHMA, UNCOMPLICATED (3) Lactate blood increased Code(s): R79.89 - OTHER SPECIFIED ABNORMAL FINDINGS OF BLOOD CHEMISTRY
--- NOTE | 2018-05-25 13:34 | CON.CARD ---
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 Pt was seen and examined today in [facility] in ICU after returning from CT chest. Pt states that she has had a cough for several weeks, she saw her PMD and was given bronchodilators but the cough continued. She travelled to [facility] where her father was in the hospital for pneumonia and he while she was there. states she had cough and sob while in [facility] but wanted to come home to be treated. States her LE edema has improved since her last office visit 04/2018. Denies any chest pain, palpitations, no pnd, orthopnea. No lightheadedness, dizziness, syncope, or near syncope. ECHO 04/05/18 Interpretation Summary Mild left atrial dilatation. Normal left ventricular size. Normal right atrial size. Normal right ventricular function. Minimal aortic valve regurgitation. Normal mitral valve. Mild tricuspid valve regurgitation. Minimal pulmonic valve regurgitation. Normal sized aortic root. Doppler pattern suggests prolonged relaxation and normal left atrial pressure (8 - 14mmHg). Doppler US b/l LE 03/25/18 Summary of Findings: There is no evidence of deep or superficial vein thrombosis in the evaluated veins on the right. There is no evidence of deep or superficial vein thrombosis in the evaluated veins on the left. - History Source History Provided By: Patient, Medical Record Limitations to Obtaining History: No Limitations - Past Medical History Cardio/Vascular: Yes: HTN - Alcohol/Substance Use Hx Alcohol Use: Yes (socially) - Smoking History Smoking history: Never smoked Have you smoked in the past 12 months: No - Social History Usual Living Arrangement: With Spouse ADL: Independent History of Recent Travel: No Home Medications - Allergies Allergies/Adverse Reactions: Allergies Allergy/AdvReac Type Severity Reaction Status Date / Time codeine AdvReac Mild N&V Verified 05/24/18 13:58 SEASONAL ALLERGIES Allergy Mild Cough Uncoded 05/24/18 13:58 - Home Medications Home Medications: Ambulatory Orders Albuterol Sulfate Inhaler - [Ventolin Hfa Inhaler -] 2 inh PO BID 05/24/18 Azithromycin 250 mg PO 05/24/18 Fluticasone Propionate [Flovent Diskus] 100 mcg IH 05/24/18 Family Disease History - Family Disease History Family History: Denies Review of Systems - Review of Systems Constitutional: reports: Fever, Malaise, Weakness. denies: No Symptoms, Chills , Diaphoresis, Lethargy, Loss of Appetite, Night Sweats, Unintentional Wgt. Loss , Other Eyes: denies: No Symptoms, Blind Spots, Blurred Vision, Double Vision, Eye Pain , Floaters, Photophobia, Recent Change in Vision, Other HENT: denies: No Symptoms, Difficult Swallowing, Ear Discharge, Ear Pain, Epistaxis, Gingival Bleeding, Hearing Loss, Mouth Swelling, Nasal Congestion, Ocular Prosthesis, Throat Pain, Toothache, Ringing in Ears, Other Neck: denies: No Symptoms, Decreased ROM, Lumps, Pain on Movement, Stiffness, Swollen Glands, Tenderness, Other Cardiovascular: reports: Edema, Shortness of Breath. denies: No Symptoms, Chest Pain, Palpitations, Other Respiratory: reports: Cough, Exercise Intolerance, SOB, SOB on Exertion, Wheezing. denies: No Symptoms, Hemoptysis, Orthopnea, PND, Snoring, Other Gastrointestinal: denies: No Symptoms, Abdominal Pain, Bloating, Constipation, Diarrhea, Dysphagia, Indigestion, Melena, Nausea, Rectal Bleeding, Vomiting, Vomiting Blood, Other Genitourinary: denies: No Symptoms, Burning, Discharge, Dysuria, Flank Pain, Frequency, Hematuria, Incontinence, Lesions, Menses, Pain, Testicular Mass, Testicular Pain, Testicular Swelling, Urgency, Vaginal Bleeding, Other Breasts: denies: No Symptoms Reported, See HPI, Breast Implants, Discharge from Nipple, Lumps, Pain, Skin Changes, Other Musculoskeletal: denies: No Symptoms, Back Pain, Crepitus, Decreased ROM, Extremity Pain, Joint Pain, Joint Swelling, Muscle Pain, Muscle Cramps, Muscle Weakness, Other Integumentary: denies: No Symptoms, Blister, Bruising, Change in Color, Eczema, Erythema, Incision, Lesions, Lump, Pallor, Pruritis, Rash, Wound, Other Neurological: denies: No Symptoms, Change in LOC, Change in Speech, Confusion, Dizziness, Headache, Incoordination, Numbness, Parasthesia, Pre-Existing Deficit , Seizure, Syncope, Tremors, Unsteady Gait, Weakness, Other Endocrine: denies: No Symptoms, Excessive Sweating, Flushing, Increased Hunger, Increased Thirst, Intolerance to Cold, Intolerance to Heat, Unexplained Weight Gain, Unexplained Weight Loss, Other Hematology/Lymphatic: denies: No Symptoms, Easily Bruised, Excessive Bleeding, Swollen Glands, Other Psychiatric: denies: No Symptoms, Altered Sleep Pattern, Anxiety, Depression, Hallucinations, Panic, Paranoia, Suicidal, Other - Risk Factors Known Risk Factors: Yes: Age, Hypercholesterolemia, Hypertension Vital Signs: Vital Signs Temperature 98.4 F 05/25/18 10:00 Pulse Rate 132 H 05/25/18 10:00 Respiratory Rate 22 05/25/18 10:00 Blood Pressure 132/70 05/25/18 10:00 O2 Sat by Pulse Oximetry (%) 96 05/25/18 10:00 Constitutional: Yes: No Distress, Calm Eyes: Yes: Conjunctiva Clear, EOM Intact, PERRL HENT: Yes: Atraumatic, Normocephalic Neck: Yes: Supple, Trachea Midline Respiratory: Yes: Regular, Cough, Rhonchi, Wheezes. No: Rales, SOB Gastrointestinal: Yes: Normal Bowel Sounds, Soft. No: Distention, Tenderness Cardiovascular: Yes: Tachycardia. No: Regular Rate and Rhythm, Bradycardia, Pulse Irregular, Gallop, Rub, Varicosities JVD: No Carotid Bruit: No PMI: Non-Displaced Heart Sounds: Yes: S1, S2. No: Split S2, S3, S4, Clicks, Gallop, Rub, Bruit Murmur: No: Systolic Murmur, Diastolic Murmur Musculoskeletal: Yes: WNL Extremities: Yes: WNL Edema: LLE: Trace, RLE: Trace Peripheral Pulses WNL: Yes Peripheral Pulses: 2+ Left Doralis Pedis, 2+ Right Dorsalis Pedis Neurological: Yes: Alert, Oriented Psychiatric: Yes: Alert, Oriented - Other Data Labs, Other Data: CBC, BMP 05/25/18 06:00 05/25/18 06:00 INR, PTT INR 1.19 (0.82-1.09) H 05/24/18 14:41 Troponin, BNP 05/24/18 05/24/18 14:14 14:14 Troponin I < 0.02 B-Natriuretic Peptide 393.23 H Troponin, BNP 05/24/18 05/24/18 14:14 14:14 Troponin I < 0.02 B-Natriuretic Peptide 393.23 H ekg-sinus tach 146bpm, nonspecific ST abnl Echo: Report Reviewed Imaging - Results Chest X-ray: Report Reviewed, Image Reviewed Cat Scan: Report Reviewed, Image Reviewed EKG: Report Reviewed, Image Reviewed Other: Report Reviewed, Image Reviewed (tele-sinus tach, no sig arrhytmias) Assessment/Plan 72 year old woman with a pmh HTN, Breast Ca s/p mastectomy, chemo and RT years ago at [facility], Rheum arthritis on prednisone, 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 Pt was seen and examined today in [facility] in ICU after returning from CT chest. Pt states that she has had a cough for several weeks, she saw her PMD and was given bronchodilators but the cough continued. She travelled to [facility] where her father was in the hospital for pneumonia and he while she was there. states she had cough and sob while in [facility] but wanted to come home to be treated. States her LE edema has improved since her last office visit 04/2018. Denies any chest pain, palpitations, no pnd, orthopnea. No lightheadedness, dizziness, syncope, or near syncope. ECHO 04/05/18 Interpretation Summary Mild left atrial dilatation. Normal left ventricular size. Normal right atrial size. Normal right ventricular function. Minimal aortic valve regurgitation. Normal mitral valve. Mild tricuspid valve regurgitation. Minimal pulmonic valve regurgitation. Normal sized aortic root. Doppler pattern suggests prolonged relaxation and normal left atrial pressure (8 - 14mmHg). Doppler US b/l LE 03/25/18 Summary of Findings: There is no evidence of deep or superficial vein thrombosis in the evaluated veins on the right. There is no evidence of deep or superficial vein thrombosis in the evaluated veins on the left. Sinus tach-no arrhythmias have been seen, presume sinus tach due to SIRS/sepsis -would not medical treat sinus tach, should improve with treatment of underlying condition -CTA chest was done and reported as no definite pulmonary embolism but mild b/l groundlass interstitial markings -last echo as above showed no significant structural heart disease -fup repeat echo ordered today to evaluate for any change -recent dopplers done 03/2018 because of LE edema showed no DVT and LE edema has improved since then thus DVT unlikely -cont to monitor tele in ICU SOB/SIRS-possible sepsis -as per CCM -of note pt has h/o Breast CA and chemo/RT in the past, she has also been on steroids for treatment of her RA thus she is immunocompromised -wheezing on exam, possible bronchitis possible atypical pneumonia -no exam findings c/w acute CHF HTN-elevated at times, adequate for now -can monitor off HTN meds for now in setting of SIRS, re-introduce home BP meds as needed Will follow
--- NOTE | 2018-05-25 13:40 | CONS ---
DATE OF CONSULTATION: DATE OF DICTATION: 05/25/2018 REQUESTED BY: The hospitalist service. HISTORY OF PRESENT ILLNESS: This is a 72-year-old woman otherwise healthy. She has a remote history of breast cancer, status post chemotherapy and radiation, history of hypertension and she has some neuropathy secondary to her chemotherapy. She also has a history of GERD who went to [facility] 2 weeks ago. While she is about 1 week into her admission so about 1 week before her return she started developing cough and intermittent fever there. She took Tylenol and Motrin. This Wednesday she got on a plane and came back and she states she was coughing during the entire trip. She went to see her doctor who gave her inhalers, Flovent, albuterol and Zithromax. She felt worse after starting these medicines on Wednesday and came to the emergency room on Wednesday. There is no history of hemoptysis. She denies nausea, vomiting. She reports that she was supposed to go on this trip about 2 months ago to see her father who is sick and she developed leg swelling and at that time she had Dopplers of her legs done which were negative for DVT. Her family was also in [facility] and she says no one else was sick, that she was the only person who got sick except for her father who is in the ICU. She has no pets here. They had no pets in [facility]. She stayed with her family there in [facility]. PAST MEDICAL HISTORY: Notable for hypertension, breast cancer, status post radiation and chemotherapy 19 years ago, history of GERD, she has had a history of an ulcer in the past. SURGICAL HISTORY: Notable for meningioma resection, hernia repair and lumpectomy. SOCIAL HISTORY: There is no history of cigarette use. ALLERGIES: She is allergic to CODEINE. She has SEASONAL ALLERGIES. HOME MEDICATIONS: Include sertraline; a proton pump inhibitor; she is on blood pressure medicine and 5 mg of prednisone which she has been on for a year for a recent diagnosis of rheumatoid arthritis. FAMILY HISTORY: Noncontributory. REVIEW OF SYSTEMS: She has no diarrhea. She has had no nausea or vomiting. She has had limited oral intake and she has started feeling very shaky and uncomfortable since starting the nebulizer treatment. She had no sick contacts in [facility]. She was around young children from 3 to 13, but no one was sick. PHYSICAL EXAMINATION:Vital Signs: Temperature is 98.4. Apparently she had fever at home as high as 101. Pulse is 132, blood pressure 132/70, respiratory rate is 22, she is saturating 96% on 3 L. HEENT: She is normocephalic. Her eyes are anicteric. Neck: Supple. She has no thrush or pharyngitis. Lungs: Show scattered rhonchi and wheezes. Heart: Tachycardic. Abdomen: Soft. She has some mild midepigastric discomfort on palpation. There is no rebound or guarding. Extremities: Without edema. Her left leg looks slightly larger than her right. LABORATORIES: Notable on admission white count was 5.7, after steroids 10.2 today, platelets of 163, hemoglobin is 11.9. Her BUN is 13 and creatinine is 1.2. LFTs are normal. Lactic acid on admission was 2.6, this morning is 7.7. Urinalysis is negative. Influenza screen is negative. Blood and urine cultures are pending. Chest x-ray is negative for infiltrate. ASSESSMENT: In summary this is a 72-year-old woman with a 1-week syndrome of fever and cough consistent with possible pneumonia, possible viral syndrome. She is quite bronchospastic. RECOMMENDATIONS: I would agree with Rocephin and Zithromax. Influenza screen has been sent and is negative. Would order viral panel as well as RSV. Chest CT has been ordered as well. Would get duplex of her legs given she has reported intermittent swelling and she did have this recent travel. Further recommendations to follow. Nina KELLY/[id number]
[2018-05-25] MEDS ORDERED: ENOXAPARIN NA (PORCINE) 60 MG/0.6 ML DISP.SYRIN SQ SCH ×2 (14:15→22:00)
--- NOTE | 2018-05-25 14:19 | CONSULT ---
Consultation: REQUESTING PROVIDER: CONSULT REQUEST: We have been asked to medically evaluate this patient for (ICU Admission). HISTORY OF PRESENT ILLNESS: 72 yo female admitted to the ICU with SOB, cough, tachycardia and elevated b.p. She states that she recently returned from [facility] after going to visit a sick family member. She developed symptoms of a URI while there, traveled back, and was seen by her PCP. She was given azithromycin and nebulizers, but felt she was getting worse and presented to the ED. PMH of HTN and Breast CA s/p chemotherapy and radiation therapy. REVIEW OF SYSTEMS: CONSTITUTIONAL: fever Absent: chills, diaphoresis, generalized weakness, malaise, loss of appetite, weight change HEENT: rhinorrhea, nasal congestion Absent: throat pain, throat swelling, difficulty swallowing, mouth swelling, ear pain, eye pain, visual changes CARDIOVASCULAR: Absent: chest pain, syncope, palpitations, irregular heart rate, lightheadedness , peripheral edema RESPIRATORY: cough, shortness of breath Absent: dyspnea with exertion, orthopnea, wheezing, stridor, hemoptysis GASTROINTESTINAL: Absent: abdominal pain, abdominal distension, nausea, vomiting, diarrhea, constipation, melena, hematochezia GENITOURINARY: Absent: dysuria, frequency, urgency, hesitancy, hematuria, flank pain, genital pain MUSCULOSKELETAL: Absent: myalgia, arthralgia, joint swelling, back pain, neck pain SKIN: Absent: rash, itching, pallor HEMATOLOGIC/IMMUNOLOGIC: Absent: easy bleeding, easy bruising, lymphadenopathy, frequent infections ENDOCRINE: Absent: unexplained weight gain, unexplained weight loss, heat intolerance, cold intolerance NEUROLOGIC: Absent: headache, focal weakness or paresthesias, dizziness, unsteady gait, seizure, mental status changes, bladder or bowel incontinence PSYCHIATRIC: Absent: anxiety, depression, suicidal or homicidal ideation, hallucinations. PHYSICAL EXAMINATION Vital Signs - 24 hr 05/24/18 05/24/18 05/24/18 14:55 17:50 21:00 Temperature 98.5 F 98.2 F Pulse Rate 88 106 H Respiratory 20 18 Rate Blood Pressure 152/81 160/88 O2 Sat by Pulse 95 98 94 L Oximetry (%) 05/25/18 05/25/18 05/25/18 01:00 05:00 08:00 Temperature 98.4 F 98.4 F 98.8 F Pulse Rate 124 H 120 H 152 H Respiratory 18 20 22 Rate Blood Pressure 140/80 133/75 145/70 O2 Sat by Pulse Oximetry (%) 05/25/18 10:00 Temperature 98.4 F Pulse Rate 132 H Respiratory 22 Rate Blood Pressure 132/70 O2 Sat by Pulse 96 Oximetry (%) GENERAL: Awake, alert, and fully oriented, in no acute distress. HEAD: Normal with no signs of trauma. EYES: PERRL, sclera anicteric, conjunctiva clear. No lid lag. EARS, NOSE, THROAT: Ears normal, nares patent, oropharynx clear without exudates. Moist mucous membranes. NECK: JVD noted on exam, supple without lymphadenopathy, or masses. LUNGS: Crackles and expiratory wheezes throughout HEART: Tachycardic, regular rhythm, normal S1 and S2 without murmur, rub or gallop. ABDOMEN: Soft, nontender, not distended, normoactive bowel sounds, no guarding, no rebound, no masses. No hepatomegaly or splenomegaly. MUSCULOSKELETAL: Normal range of motion at all joints. No bony deformities or tenderness. No CVA tenderness. UPPER EXTREMITIES: warm, well-perfused. No cyanosis. No clubbing. No peripheral edema. LOWER EXTREMITIES: warm, well-perfused. No calf tenderness. No peripheral edema. NEUROLOGICAL: Cranial nerves II-XII grossly intact. Normal speech. PSYCHIATRIC: Cooperative. Good eye contact. Appropriate mood and affect. SKIN: Warm, dry, normal turgor, no rashes or lesions noted. Laboratory Results - last 24 hr 05/24/18 05/24/18 05/24/18 14:14 14:14 14:14 WBC 5.7 RBC 4.04 Hgb 13.4 Hct 37.7 MCV 93.2 MCH 33.2 MCHC 35.6 RDW 12.6 Plt Count 182 MPV 8.1 Absolute Neuts (auto) 3.2 Neutrophils % 55.7 Lymphocytes % 34.9 Monocytes % 5.3 Eosinophils % 3.3 Basophils % 0.8 Nucleated RBC % 0 PT with INR INR PTT (Actin FS) D-Dimer Puncture Site ABG pH ABG pCO2 at Pt Temp ABG pO2 at Pt Temp ABG HCO3 ABG O2 Sat (Measured) ABG O2 Content ABG Base Excess [place] Test VBG pH POC VBG pCO2 POC VBG pO2 Mixed VBG HCO3 O2 Delivery Device Oxygen Flow Rate Sodium 142 Potassium 3.1 L Chloride 100 Carbon Dioxide 32 Anion Gap 10 BUN 16 Creatinine 0.9 Creat Clearance w eGFR > 60 Random Glucose 172 H Lactic Acid Calcium 9.6 Magnesium Total Bilirubin 0.5 AST 32 ALT 39 Alkaline Phosphatase 50 Creatine Kinase 49 Troponin I < 0.02 B-Natriuretic Peptide 393.23 H Total Protein 7.6 Albumin 3.9 Urine Color Urine Appearance Urine pH Ur Specific [place] Urine Protein Urine Glucose (UA) Urine Ketones Urine Blood Urine Nitrite Urine Bilirubin Urine Urobilinogen Ur Leukocyte Esterase 05/24/18 05/24/18 05/24/18 14:41 14:41 14:41 WBC RBC Hgb Hct MCV MCH MCHC RDW Plt Count MPV Absolute Neuts (auto) Neutrophils % Lymphocytes % Monocytes % Eosinophils % Basophils % Nucleated RBC % PT with INR 13.40 H INR 1.19 H PTT (Actin FS) 27.6 D-Dimer 424 Puncture Site ABG pH ABG pCO2 at Pt Temp ABG pO2 at Pt Temp ABG HCO3 ABG O2 Sat (Measured) ABG O2 Content ABG Base Excess [place] Test VBG pH 7.46 H POC VBG pCO2 45.5 POC VBG pO2 35.5 Mixed VBG HCO3 32.1 H O2 Delivery Device Oxygen Flow Rate Sodium Potassium Chloride Carbon Dioxide Anion Gap BUN Creatinine Creat Clearance w eGFR Random Glucose Lactic Acid Calcium Magnesium Total Bilirubin AST ALT Alkaline Phosphatase Creatine Kinase Troponin I B-Natriuretic Peptide Total Protein Albumin Urine Color Urine Appearance Urine pH Ur Specific [place] Urine Protein Urine Glucose (UA) Urine Ketones Urine Blood Urine Nitrite Urine Bilirubin Urine Urobilinogen Ur Leukocyte Esterase 05/24/18 05/24/18 05/24/18 14:46 16:27 17:09 WBC RBC Hgb Hct MCV MCH MCHC RDW Plt Count MPV Absolute Neuts (auto) Neutrophils % Lymphocytes % Monocytes % Eosinophils % Basophils % Nucleated RBC % PT with INR INR PTT (Actin FS) D-Dimer Puncture Site ABG pH ABG pCO2 at Pt Temp ABG pO2 at Pt Temp ABG HCO3 ABG O2 Sat (Measured) ABG O2 Content ABG Base Excess [place] Test VBG pH POC VBG pCO2 POC VBG pO2 Mixed VBG HCO3 O2 Delivery Device Oxygen Flow Rate Sodium Potassium Chloride Carbon Dioxide Anion Gap BUN Creatinine Creat Clearance w eGFR Random Glucose Lactic Acid 2.6 H* 2.4 H* Calcium Magnesium Total Bilirubin AST ALT Alkaline Phosphatase Creatine Kinase Troponin I B-Natriuretic Peptide Total Protein Albumin Urine Color Ltyellow Urine Appearance Clear Urine pH 6.0 Ur Specific [place] 1.017 Urine Protein Negative Urine Glucose (UA) Negative Urine Ketones Negative Urine Blood Negative Urine Nitrite Negative Urine Bilirubin Negative Urine Urobilinogen Negative Ur Leukocyte Esterase Negative 05/24/18 05/24/18 05/25/18 21:30 22:01 06:00 WBC 10.2 H RBC 3.55 L Hgb 11.9 Hct 33.5 MCV 94.5 MCH 33.5 MCHC 35.5 RDW 12.7 Plt Count 163 MPV 8.1 Absolute Neuts (auto) 9.0 Neutrophils % 88.8 H D Lymphocytes % 9.5 D Monocytes % 1.5 L Eosinophils % 0.0 D Basophils % 0.2 Nucleated RBC % 0 PT with INR INR PTT (Actin FS) D-Dimer Puncture Site Right radial ABG pH 7.46 H ABG pCO2 at Pt Temp 34.7 L ABG pO2 at Pt Temp 91.1 ABG HCO3 24.5 ABG O2 Sat (Measured) 97.7 ABG O2 Content 16.1 ABG Base Excess 1.5 [place]ley Test Positive VBG pH POC VBG pCO2 POC VBG pO2 Mixed VBG HCO3 O2 Delivery Device N/c Oxygen Flow Rate 2 Sodium Potassium Chloride Carbon Dioxide Anion Gap BUN Creatinine Creat Clearance w eGFR Random Glucose Lactic Acid 4.7 H* Calcium Magnesium Total Bilirubin AST ALT Alkaline Phosphatase Creatine Kinase Troponin I B-Natriuretic Peptide Total Protein Albumin Urine Color Urine Appearance Urine pH Ur Specific [place] Urine Protein Urine Glucose (UA) Urine Ketones Urine Blood Urine Nitrite Urine Bilirubin Urine Urobilinogen Ur Leukocyte Esterase 05/25/18 05/25/18 05/25/18 06:00 06:00 12:30 WBC RBC Hgb Hct MCV MCH MCHC RDW Plt Count MPV Absolute Neuts (auto) Neutrophils % Lymphocytes % Monocytes % Eosinophils % Basophils % Nucleated RBC % PT with INR INR PTT (Actin FS) D-Dimer Puncture Site ABG pH ABG pCO2 at Pt Temp ABG pO2 at Pt Temp ABG HCO3 ABG O2 Sat (Measured) ABG O2 Content ABG Base Excess [place] Test VBG pH POC VBG pCO2 POC VBG pO2 Mixed VBG HCO3 O2 Delivery Device Oxygen Flow Rate Sodium 140 Potassium 3.2 L Chloride 105 Carbon Dioxide 20 L Anion Gap 15 BUN 13 Creatinine 1.2 H Creat Clearance w eGFR 44.29 Random Glucose 238 H Lactic Acid 7.7 H* 8.3 H* Calcium 8.3 L Magnesium 1.5 L Total Bilirubin 0.3 AST 23 ALT 36 Alkaline Phosphatase 47 Creatine Kinase Troponin I B-Natriuretic Peptide Total Protein 7.1 Albumin 3.4 Urine Color Urine Appearance Urine pH Ur Specific [place] Urine Protein Urine Glucose (UA) Urine Ketones Urine Blood Urine Nitrite Urine Bilirubin Urine Urobilinogen Ur Leukocyte Esterase Active Medications Generic Name Dose Route Start Last Admin Trade Name Freq PRN Reason Stop Dose Admin Chlorhexidine Gluconate 1 applic 05/25/18 22:00 Hibiclens For Decolonization - TP HS LUANN Enoxaparin Sodium 20 mg 05/25/18 14:06 Lovenox - SQ 05/25/18 14:07 ONCE ONE Enoxaparin Sodium 60 mg 05/25/18 14:15 Lovenox - SQ Q12H LUANN Azithromycin 250 mg/ Dextrose 250 mls @ 250 mls/hr 05/25/18 10:00 IVPB 05/28/18 10:59 DAILY LUANN Ceftriaxone Sodium 1 gm/ 50 mls @ 100 mls/hr 05/25/18 10:00 05/25/18 11:03 Dextrose IVPB 100 mls/hr DAILY LUANN Administration Protocol Potassium Chloride 20 meq/ 1,010 mls @ 42 mls/hr 05/25/18 09:30 05/25/18 10: 03 Dextrose/Sodium Chloride IVPB 42 mls/hr Q24H LUANN Administration Ipratropium [place] 1 amp 05/25/18 11:34 Atrovent 0.02% Nebulizer - NEB 06/01/18 11:34 Q6H PRN DYSPEPSIA Methylprednisolone Sodium Succinate 60 mg 05/25/18 15:00 Solu-Medrol - IVPUSH Q6H-IV LUANN Mupirocin 1 applic 05/25/18 13:30 Bactroban Ointment (For Decolonization) - NS 05/30/18 13:29 BID LUANN ASSESSMENT/PLAN: 72 yo female admitted to the ICU with SOB, tachycardia, cough, Lactic acid trending up currently 7. Interstitial lung dz noted on CT dDx Atypical pneumonia possibly mycobacterial vs viral/bacterial URI complicated by underlying interstitial dz. Neuro -No known neuro problems at this time Cardio -HTN - currently normotensive Pulmonary -Atypical pneumonia vs viral/bacterial URI complicated by underlying interstitial dz CTA to r/o PE, awaiting official report, but no PE noted. Interstitial lung dz also noted Abx as below Atrovent 0.02% Q6 PRN Solu-Medrol 60mg IV Q6 Renal -Mild elevation of creatinine from baseline will continue giving hydration ID -Rocephin 1 gm IV Daily -Azithromycin 250 mg IV Daily -Lactic acidosis, currently 8.3, continue to trend It is unlikely that the Lactic acidosis is due to hypoperfusion/sepsis at this time -Influenza negative, Viral panel ordered, sputum culture ordered, though not currently concerned about TB DVT Prophylaxis -Lovenox 60 mg SQ BID FEN -Fluids: KCl 20 mEq in D5 1/3 NS @ 42 cc/hr -Electrolytes: Mg 1.5, K 3.2, repleted, recheck BMP in AM -Nutrition: Sodium controlled diet Disposition Monitor in the ICU Problem List - Problems (1) H/O malignant neoplasm of breast Code(s): Z85.3 - PERSONAL HISTORY OF MALIGNANT NEOPLASM OF BREAST (2) HTN (hypertension) Code(s): I10 - ESSENTIAL (PRIMARY) HYPERTENSION (3) Lactate blood increased Code(s): R79.89 - OTHER SPECIFIED ABNORMAL FINDINGS OF BLOOD CHEMISTRY (4) Pneumonia Code(s): J18.9 - PNEUMONIA, UNSPECIFIED ORGANISM Qualifiers: Pneumonia type: due to unspecified organism Laterality: unspecified laterality Lung location: unspecified part of lung Qualified Code(s): J18.9 - Pneumonia, unspecified organism (5) Tachycardia Code(s): R00.0 - TACHYCARDIA, UNSPECIFIED Visit type - Emergency Visit Emergency Visit: Yes ED Registration Date: 05/24/18 Care time: The patient presented to the Emergency Department on the above date and was hospitalized for further evaluation of their emergent condition. - New Patient This patient is new to me today: Yes Date on this admission: 05/25/18 - Critical Care Critical Care patient: Yes Total Critical Care Time (in minutes): 50 Critical Care Statement: The care of this patient involved high complexity decision making to prevent further life threatening deterioration of the patient 's condition and/or to evaluate & treat vital organ system(s) failure or risk of failure.
[2018-05-25] MEDS: methylPREDNISolone NA SUCC 125 MG/2 ML VIAL IVPUSH SCH ×2 (14:50→21:49)
[2018-05-25] MEDS: MUPIROCIN 2% TOPICAL OINTMENT FOR DECOLONIZATION NS SCH ×2 (15:00→21:49)
[2018-05-25] MEDS ORDERED: ENOXAPARIN NA (PORCINE) 40 MG/0.4 ML DISP.SYRIN SQ ONE (15:00)
[2018-05-25] MEDS: CHLORHEXIDINE GLUCONATE 4% CLEANSER FOR DECOLONIZATION TP SCH (21:49)
[2018-05-25] MEDS: DOXYCYCLINE INJECTION 100 MG in DEXTROSE 5%-WATER - 100 ML IVPB SCH (22:50)
[2018-05-25] MEDS: MELATONIN 1 MG TABLET PO SCH (22:50)
[2018-05-26] MEDS: methylPREDNISolone NA SUCC 125 MG/2 ML VIAL IVPUSH SCH ×4 (02:06→21:32)
[2018-05-26] MEDS ORDERED: PT OWN MED DRAWER 7, Y5N ONE ×2 (06:19→21:02)
[2018-05-26 06:32] LABS: BASO % 0.2 % (0-2.0); HEMOGLOBIN 11.2 GM/dL (10.7-15.3); LYMPH % 7.7 % (8-40); MCHC 34.8 g/dl (32.0-36.0); MEAN CELL VOLUME 94.7 fl (80-96); MEAN PLT VOLUME 8.3 fl (7.5-11.1); MONO % 2.2 % (3.8-10.2); NEUT % 89.9 % (42.8-82.8); PLATELET COUNT 180 K/MM3 (134-434); RBC 3.38 M/mm3 (3.60-5.2); RDW 12.8 % (11.6-15.6)
[2018-05-26 06:58] LABS: CHLORIDE 107 mmol/L (98-107); POTASSIUM 3.7 mmol/L (3.5-5.1); SODIUM 142 mmol/L (136-145)
[2018-05-26 07:06] LABS: ALBUMIN 3.4 g/dl (3.4-5.0); ALK PHOS 45 U/L (45-117); ANION GAP 10 (8-16); BILIRUBIN,TOTAL 0.4 mg/dL (0.2-1.0); BLOOD UREA NITROGEN 16 mg/dL (7-18); CALCIUM 8.3 mg/dL (8.5-10.1); CO2 25 mmol/L (21-32); CREATININE 0.7 mg/dL (0.55-1.02); GLUCOSE,RANDOM 165 mg/dL (74-106); MAGNESIUM 2.3 mg/dL (1.8-2.4); PHOSPHOROUS 2.7 mg/dL (2.5-4.9); SGOT/AST 18 U/L (15-37); SGPT/ALT 28 U/L (12-78); TOT PROT 6.6 g/dl (6.4-8.2)
[2018-05-26] MEDS ORDERED: cefTRIAXone SODIUM 1 GM VIAL ONE (08:25)
[2018-05-26] MEDS ORDERED: DEXTROSE 5%-WATER - 50 ML IVPB ONE (08:25)
[2018-05-26] MEDS: ALBUTEROL SO4 2.5/IPRATROPIUM 0.5 INH SOL 3 ML VIAL.NEB. NEB PRN (08:31)
[2018-05-26] MEDS ORDERED: POTASSIUM CHLORIDE TABS 20 MEQ TABLET.ER (FP) PO ONE (08:45)
[2018-05-26] MEDS: CEFTRIAXONE 1 GM in DEXTROSE 5%-WATER - 50 ML IVPB SCH (09:18)
[2018-05-26] MEDS: DOXYCYCLINE INJECTION 100 MG in DEXTROSE 5%-WATER - 100 ML IVPB SCH ×2 (09:18→21:33)
[2018-05-26] MEDS: ENOXAPARIN NA (PORCINE) 40 MG/0.4 ML DISP.SYRIN SQ SCH (09:19)
[2018-05-26] MEDS: MUPIROCIN 2% TOPICAL OINTMENT FOR DECOLONIZATION NS SCH ×2 (09:22→21:32)
--- NOTE | 2018-05-26 09:44 | PN ---
Physical Exam: SUBJECTIVE: Patient seen and examined at bedside. present. OBJECTIVE: Vital Signs Period Temp Pulse Resp BP Sys/[place] Pulse Ox Last 24 Hr 97.8 F-98.4 F 88-145 17-23 120-153/64-87 96-96 GENERAL: Awake, alert, and fully oriented, in no acute distress. LUNGS: Better air movement, no wheezing, bilateral crackles senior living up ABDOMEN: Soft, nontender, not distended, normoactive bowel sounds, no guarding, no rebound MUSCULOSKELETAL: Normal range of motion at all joints. No bony deformities or tenderness. No CVA tenderness. UPPER EXTREMITIES: 2+ pulses, warm, well-perfused. No cyanosis. No clubbing. No peripheral edema. LOWER EXTREMITIES: 2+ pulses, warm, well-perfused. No calf tenderness. No peripheral edema. No calf tenderness. NEUROLOGICAL: Cranial nerves II-XII intact. Normal speech. Laboratory Results - last 24 hr 05/25/18 05/25/18 05/26/18 12:30 19:50 05:30 WBC 16.0 H RBC 3.38 L Hgb 11.2 Hct 32.0 L MCV 94.7 MCH 33.0 MCHC 34.8 RDW 12.8 Plt Count 180 MPV 8.3 Absolute Neuts (auto) 14.4 Neutrophils % 89.9 H Lymphocytes % 7.7 L Monocytes % 2.2 L Eosinophils % 0.0 Basophils % 0.2 Nucleated RBC % 0 Sodium Potassium Chloride Carbon Dioxide Anion Gap BUN Creatinine Creat Clearance w eGFR Random Glucose Lactic Acid 8.3 H* 5.0 H* Calcium Phosphorus Magnesium Total Bilirubin AST ALT Alkaline Phosphatase Total Protein Albumin 05/26/18 05:30 WBC RBC Hgb Hct MCV MCH MCHC RDW Plt Count MPV Absolute Neuts (auto) Neutrophils % Lymphocytes % Monocytes % Eosinophils % Basophils % Nucleated RBC % Sodium 142 Potassium 3.7 Chloride 107 Carbon Dioxide 25 Anion Gap 10 BUN 16 Creatinine 0.7 Creat Clearance w eGFR > 60 Random Glucose 165 H Lactic Acid Calcium 8.3 L Phosphorus 2.7 Magnesium 2.3 Total Bilirubin 0.4 AST 18 ALT 28 Alkaline Phosphatase 45 Total Protein 6.6 Albumin 3.4 Active Medications Generic Name Dose Route Start Last Admin Trade Name Freq PRN Reason Stop Dose Admin Albuterol/Ipratropium 1 amp 05/25/18 21:09 05/26/18 08:31 Duoneb - NEB 1 amp Q6H PRN Administration SHORTNESS OF BREATH Chlorhexidine Gluconate 1 applic 05/25/18 22:00 05/25/18 21:49 Hibiclens For Decolonization - TP 1 applic HS LUANN Administration Enoxaparin Sodium 40 mg 05/26/18 10:00 05/26/18 09:19 Lovenox - SQ 40 mg DAILY LUANN Administration Ceftriaxone Sodium 1 gm/ 50 mls @ 100 mls/hr 05/25/18 10:00 05/26/18 09:18 Dextrose IVPB 100 mls/hr DAILY LUANN Administration Protocol Doxycycline Hyclate 100 mg/ 100 mls @ 100 mls/hr 05/25/18 22:15 05/26/18 09: 18 Dextrose IVPB 100 mls/hr BID LUANN Administration Ipratropium [place] 1 amp 05/25/18 11:34 Atrovent 0.02% Nebulizer - NEB 06/01/18 11:34 Q6H PRN DYSPEPSIA Melatonin 1 mg 05/25/18 22:29 05/25/18 22:50 Melatonin PO 1 mg HS LUANN Administration Methylprednisolone Sodium Succinate 60 mg 05/25/18 15:00 05/26/18 08:30 Solu-Medrol - IVPUSH 60 mg Q6H-IV LUANN Administration Mupirocin 1 applic 05/25/18 13:30 05/26/18 09:22 Bactroban Ointment (For Decolonization) - NS 05/30/18 13:29 1 applic BID LUANN Administration ASSESSMENT/PLAN: 72 year-old female with a PMH significant for HTN and breast cancer s/p resection and chemotherapy, and rheumatoid arthritis. Admitted for severe sepsis likely secondary to pneumonia. Severe sepsis likely secondary to pneumonia v. asthmatic bronchitis --afebrile, no leukocytosis; lactic acid trending down, likely from albuterol --clinically improved, better air movement, no wheezing --05/25: CT chest: negative for PE; mild bilateral mid and upper lung field groundglass interstitial thickening --05/25: CTAP: no acute process --azithro dc'd due to prolonged QTc; continue ceftriaxone (day #2), doxycycline (day #2) --flu, RSV, Legionella negative --duonebs q6h PRN --continue IV steroids --ID and pulmonary following SOB, tachycardia --likely secondary to sepsis; HR improved, no arrythmias on tele --duplex negative for DVT; CTA negative for PE --echo done, pending dictation; per cardiology, hyperdynamic LV function, mild MR Prolonged QT interval --avoid QT prolonging agents Hypertension --BP stable --not on anti-hypertensives Breast cancer --no acute issues Hypokalemia --repleted Hypomagnesemia --repleted FEN Fluids: PO intake adequate Electrolytes: replete as indicated Nutrition: low sodium DVT prophylaxis: subq lovenox Physical therapy Dispo: continues to require inpatient care. Full code. Visit type - Emergency Visit Emergency Visit: Yes ED Registration Date: 05/24/18 Care time: The patient presented to the Emergency Department on the above date and was hospitalized for further evaluation of their emergent condition. - New Patient This patient is new to me today: No - Critical Care Critical Care patient: Yes Total Critical Care Time (in minutes): 35 Critical Care Statement: The care of this patient involved high complexity decision making to prevent further life threatening deterioration of the patient 's condition and/or to evaluate & treat vital organ system(s) failure or risk of failure.
--- NOTE | 2018-05-26 09:55 | PN ---
Progress Note, Physician History of Present Illness: Awake, alert Ambulatory Reports less dyspnea Occasional cough Scant sputum production No c/o fever/chills - Current Medication List Current Medications: Active Medications Albuterol/Ipratropium (Duoneb -) 1 amp NEB Q6H PRN PRN Reason: SHORTNESS OF BREATH Last Admin: 05/26/18 08:31 Dose: 1 amp Chlorhexidine Gluconate (Hibiclens For Decolonization -) 1 applic TP HS PENDING SALE TO [facility] Last Admin: 05/25/18 21:49 Dose: 1 applic Enoxaparin Sodium (Lovenox -) 40 mg SQ DAILY LUANN Last Admin: 05/26/18 09:19 Dose: 40 mg Ceftriaxone Sodium 1 gm/ (Dextrose) 50 mls @ 100 mls/hr IVPB DAILY PENDING SALE TO [facility]; Protocol Last Admin: 05/26/18 09:18 Dose: 100 mls/hr Doxycycline Hyclate 100 mg/ (Dextrose) 100 mls @ 100 mls/hr IVPB BID PENDING SALE TO [facility] Last Admin: 05/26/18 09:18 Dose: 100 mls/hr Ipratropium [place] (Atrovent 0.02% Nebulizer -) 1 amp NEB Q6H PRN PRN Reason: DYSPEPSIA Stop: 06/01/18 11:34 Melatonin (Melatonin) 1 mg PO HS PENDING SALE TO [facility] Last Admin: 05/25/18 22:50 Dose: 1 mg Methylprednisolone Sodium Succinate (Solu-Medrol -) 60 mg IVPUSH Q6H-IV LUANN Last Admin: 05/26/18 08:30 Dose: 60 mg Mupirocin (Bactroban Ointment (For Decolonization) -) 1 applic NS BID PENDING SALE TO [facility] Stop: 05/30/18 13:29 Last Admin: 05/26/18 09:22 Dose: 1 applic - Objective Vital Signs: Vital Signs Temperature 97.8 F 05/26/18 02:00 Pulse Rate 99 H 05/26/18 08:00 Respiratory Rate 20 05/26/18 09:00 Blood Pressure 124/84 05/26/18 08:00 O2 Sat by Pulse Oximetry (%) 96 05/26/18 09:00 Constitutional: Yes: No Distress Eyes: Yes: Conjunctiva Clear HENT: Yes: Atraumatic Cardiovascular: Yes: Regular Rate and Rhythm, S1, S2 Respiratory: Yes: CTA Bilaterally Gastrointestinal: Yes: Normal Bowel Sounds, Soft. No: Tenderness Edema: No Labs: CBC, BMP 05/26/18 05:30 05/26/18 05:30 INR, PTT INR 1.19 (0.82-1.09) H 05/24/18 14:41 Assessment/Plan Asthmatic bronchitis ? Viral URI ? Pneumonia Await c/s Continue empiric zithromax/ceftriaxone
[2018-05-26] MEDS ORDERED: AZITHROMYCIN IVPB 250 MG in DEXTROSE 5%-WATER - 250 ML IVPB SCH (10:00)
[2018-05-26] MEDS ORDERED: AZITHROMYCIN IVPB 500 MG in DEXTROSE 5%-WATER - 250 ML IVPB SCH ×2 (10:00→19:30)
--- NOTE | 2018-05-26 13:42 | PN ---
Physical Exam: SUBJECTIVE: Patient seen and examined in the ICU. States that her SOB is improved from yesterday, but that she still feels weak. OBJECTIVE: Vital Signs Period Temp Pulse Resp BP Sys/Ovalle Pulse Ox Last 24 Hr 97.8 F-98.3 F 88-125 17-23 120-157/66-89 96-96 GENERAL: Awake, alert, and fully oriented, in no acute distress. HEAD: Normal with no signs of trauma. EYES: PERRL, sclera anicteric, conjunctiva clear. No lid lag. EARS, NOSE, THROAT: Ears normal, nares patent, oropharynx clear without exudates. Moist mucous membranes. NECK: JVD noted on exam, supple without lymphadenopathy, or masses. LUNGS: Crackles and expiratory wheezes throughout, wheezes improved from yesterday HEART: Tachycardic, regular rhythm, normal S1 and S2 without murmur, rub or gallop. ABDOMEN: Soft, nontender, not distended, normoactive bowel sounds, no guarding, no rebound, no masses. MUSCULOSKELETAL: No bony deformities or tenderness. No CVA tenderness. UPPER EXTREMITIES: warm, well-perfused. No cyanosis. No clubbing. No peripheral edema. LOWER EXTREMITIES: warm, well-perfused. No calf tenderness. No peripheral edema. NEUROLOGICAL: Cranial nerves II-XII grossly intact. Normal speech. PSYCHIATRIC: Cooperative. Good eye contact. Appropriate mood and affect. SKIN: Warm, dry, normal turgor, no rashes or lesions noted. Laboratory Results - last 24 hr 05/25/18 05/26/18 05/26/18 19:50 05:30 05:30 WBC 16.0 H RBC 3.38 L Hgb 11.2 Hct 32.0 L MCV 94.7 MCH 33.0 MCHC 34.8 RDW 12.8 Plt Count 180 MPV 8.3 Absolute Neuts (auto) 14.4 Neutrophils % 89.9 H Lymphocytes % 7.7 L Monocytes % 2.2 L Eosinophils % 0.0 Basophils % 0.2 Nucleated RBC % 0 Sodium 142 Potassium 3.7 Chloride 107 Carbon Dioxide 25 Anion Gap 10 BUN 16 Creatinine 0.7 Creat Clearance w eGFR > 60 Random Glucose 165 H Lactic Acid 5.0 H* Calcium 8.3 L Phosphorus 2.7 Magnesium 2.3 Total Bilirubin 0.4 AST 18 ALT 28 Alkaline Phosphatase 45 Total Protein 6.6 Albumin 3.4 05/26/18 08:25 WBC RBC Hgb Hct MCV MCH MCHC RDW Plt Count MPV Absolute Neuts (auto) Neutrophils % Lymphocytes % Monocytes % Eosinophils % Basophils % Nucleated RBC % Sodium Potassium Chloride Carbon Dioxide Anion Gap BUN Creatinine Creat Clearance w eGFR Random Glucose Lactic Acid 2.5 H* Calcium Phosphorus Magnesium Total Bilirubin AST ALT Alkaline Phosphatase Total Protein Albumin Active Medications Generic Name Dose Route Start Last Admin Trade Name Freq PRN Reason Stop Dose Admin Albuterol/Ipratropium 1 amp 05/25/18 21:09 05/26/18 08:31 Duoneb - NEB 1 amp Q6H PRN Administration SHORTNESS OF BREATH Chlorhexidine Gluconate 1 applic 05/25/18 22:00 05/25/18 21:49 Hibiclens For Decolonization - TP 1 applic HS [facility]ANN Administration Enoxaparin Sodium 40 mg 05/26/18 10:00 05/26/18 09:19 Lovenox - SQ 40 mg DAILY [facility] Administration Ceftriaxone Sodium 1 gm/ 50 mls @ 100 mls/hr 05/25/18 10:00 05/26/18 09:18 Dextrose IVPB 100 mls/hr DAILY [facility] Administration Protocol Doxycycline Hyclate 100 mg/ 100 mls @ 100 mls/hr 05/25/18 22:15 05/26/18 09: 18 Dextrose IVPB 100 mls/hr BID [facility] Administration Ipratropium [place] 1 amp 05/25/18 11:34 Atrovent 0.02% Nebulizer - NEB 06/01/18 11:34 Q6H PRN DYSPEPSIA Melatonin 1 mg 05/25/18 22:29 05/25/18 22:50 Melatonin PO 1 mg HS [facility]ANN Administration Methylprednisolone Sodium Succinate 60 mg 05/25/18 15:00 05/26/18 08:30 Solu-Medrol - IVPUSH 60 mg Q6H-IV [facility]ANN Administration Mupirocin 1 applic 05/25/18 13:30 05/26/18 09:22 Bactroban Ointment (For Decolonization) - NS 05/30/18 13:29 1 applic BID [facility]ANN Administration ASSESSMENT/PLAN: 72 yo female admitted to the ICU with SOB, tachycardia, cough, Lactic acid trending up currently 7. dDx Atypical pneumonia possibly mycobacterial vs viral/bacterial URI complicated by underlying interstitial inflammation Neuro -No known neuro problems at this time Cardio -HTN - currently normotensive Pulmonary -Atypical pneumonia vs viral/bacterial URI complicated by underlying interstitial inflammation / bronchitis? CTA to r/o PE, awaiting official report, but no PE noted. Interstitial lung dz also noted Abx as below Atrovent 0.02% Q6 PRN Solu-Medrol 60mg IV Q6 Duoneb Q6 PRN Renal -Mild elevation of creatinine from baseline will continue giving hydration ID -Rocephin 1 gm IV Daily -Doxycycline 100 mg IVPB BID -Lactic acidosis peaked at 8.3, now down to 2.3 It is unlikely that the Lactic acidosis is due to hypoperfusion/sepsis at this time -Influenza negative, Viral panel ordered, sputum culture ordered, though not currently concerned about TB DVT Prophylaxis -Lovenox 40 mg SQ Daily FEN -Fluids: none -Electrolytes: K 3.7, repleted, recheck BMP in AM -Nutrition: Sodium controlled diet Disposition Monitor in the ICU Problem List - Problems (1) H/O malignant neoplasm of breast Code(s): Z85.3 - PERSONAL HISTORY OF MALIGNANT NEOPLASM OF BREAST (2) HTN (hypertension) Code(s): I10 - ESSENTIAL (PRIMARY) HYPERTENSION (3) Lactate blood increased Code(s): R79.89 - OTHER SPECIFIED ABNORMAL FINDINGS OF BLOOD CHEMISTRY (4) Pneumonia Code(s): J18.9 - PNEUMONIA, UNSPECIFIED ORGANISM Qualifiers: Qualified Code(s): J18.9 - Pneumonia, unspecified organism (5) Tachycardia Code(s): R00.0 - TACHYCARDIA, UNSPECIFIED Visit type - Emergency Visit Emergency Visit: Yes ED Registration Date: 05/24/18 Care time: The patient presented to the Emergency Department on the above date and was hospitalized for further evaluation of their emergent condition. - New Patient This patient is new to me today: No - Critical Care Critical Care patient: Yes Total Critical Care Time (in minutes): 36 Critical Care Statement: The care of this patient involved high complexity decision making to prevent further life threatening deterioration of the patient 's condition and/or to evaluate & treat vital organ system(s) failure or risk of failure.
--- NOTE | 2018-05-26 13:43 | PN ---
Teaching Attending Note Name of Resident: Darnell Sebastian ATTENDING PHYSICIAN STATEMENT I saw and evaluated the patient. I reviewed the resident's note and discussed the case with the resident. I agree with the resident's findings and plan as documented. SUBJECTIVE: Patient seen and examined in the ICU. Still with some SOB and fatigue. Cough is dry. No hemoptysis. Intake & Output 05/23/18 05/24/18 05/25/18 05/26/18 23:59 23:59 23:59 23:59 Intake Total 1200 1502 310 Output Total 800 Balance 1200 702 310 Weight 134 lb 3.2 oz Last Vital Signs Temp Pulse Resp BP Pulse Ox 98.2 F 104 H 21 157/89 96 05/26/18 10:00 05/26/18 12:00 05/26/18 12:00 05/26/18 12:00 05/26/18 09:00 Active Medications Albuterol/Ipratropium (Duoneb -) 1 amp NEB Q6H PRN PRN Reason: SHORTNESS OF BREATH Last Admin: 05/26/18 08:31 Dose: 1 amp Chlorhexidine Gluconate (Hibiclens For Decolonization -) 1 applic TP HS [facility] Last Admin: 05/25/18 21:49 Dose: 1 applic Enoxaparin Sodium (Lovenox -) 40 mg SQ DAILY [facility] Last Admin: 05/26/18 09:19 Dose: 40 mg Ceftriaxone Sodium 1 gm/ (Dextrose) 50 mls @ 100 mls/hr IVPB DAILY [facility]; Protocol Last Admin: 05/26/18 09:18 Dose: 100 mls/hr Doxycycline Hyclate 100 mg/ (Dextrose) 100 mls @ 100 mls/hr IVPB BID [facility] Last Admin: 05/26/18 09:18 Dose: 100 mls/hr Ipratropium [place] (Atrovent 0.02% Nebulizer -) 1 amp NEB Q6H PRN PRN Reason: DYSPEPSIA Stop: 06/01/18 11:34 Melatonin (Melatonin) 1 mg PO HS [facility] Last Admin: 05/25/18 22:50 Dose: 1 mg Methylprednisolone Sodium Succinate (Solu-Medrol -) 60 mg IVPUSH Q6H-IV [facility] Last Admin: 05/26/18 08:30 Dose: 60 mg Mupirocin (Bactroban Ointment (For Decolonization) -) 1 applic NS BID [facility] Stop: 05/30/18 13:29 Last Admin: 05/26/18 09:22 Dose: 1 applic GENERAL: Awake, alert, and fully oriented, in no acute distress. HEAD: Normal with no signs of trauma. EYES: PERRL, sclera anicteric, conjunctiva clear. No lid lag. EARS, NOSE, THROAT: Ears normal, nares patent, oropharynx clear without exudates. Moist mucous membranes. NECK: JVD noted on exam, supple without lymphadenopathy, or masses. LUNGS: Coarse breath sounds and rhonchi, no wheeze HEART: Tachycardic, regular rhythm, normal S1 and S2 without murmur, rub or gallop. ABDOMEN: Soft, nontender, not distended, normoactive bowel sounds, no guarding, no rebound, no masses. No hepatomegaly or splenomegaly. MUSCULOSKELETAL: Normal range of motion at all joints. No bony deformities or tenderness. No CVA tenderness. UPPER EXTREMITIES: warm, well-perfused. No cyanosis. No clubbing. No peripheral edema. LOWER EXTREMITIES: warm, well-perfused. No calf tenderness. No peripheral edema. NEUROLOGICAL: Non-focal PSYCHIATRIC: Cooperative. Good eye contact. Appropriate mood and affect. SKIN: Warm, dry, normal turgor, no rashes or lesions noted. Laboratory Results - last 24 hr 05/25/18 05/26/18 05/26/18 19:50 05:30 05:30 WBC 16.0 H RBC 3.38 L Hgb 11.2 Hct 32.0 L MCV 94.7 MCH 33.0 MCHC 34.8 RDW 12.8 Plt Count 180 MPV 8.3 Absolute Neuts (auto) 14.4 Neutrophils % 89.9 H Lymphocytes % 7.7 L Monocytes % 2.2 L Eosinophils % 0.0 Basophils % 0.2 Nucleated RBC % 0 Sodium 142 Potassium 3.7 Chloride 107 Carbon Dioxide 25 Anion Gap 10 BUN 16 Creatinine 0.7 Creat Clearance w eGFR > 60 Random Glucose 165 H Lactic Acid 5.0 H* Calcium 8.3 L Phosphorus 2.7 Magnesium 2.3 Total Bilirubin 0.4 AST 18 ALT 28 Alkaline Phosphatase 45 Total Protein 6.6 Albumin 3.4 05/26/18 08:25 WBC RBC Hgb Hct MCV MCH MCHC RDW Plt Count MPV Absolute Neuts (auto) Neutrophils % Lymphocytes % Monocytes % Eosinophils % Basophils % Nucleated RBC % Sodium Potassium Chloride Carbon Dioxide Anion Gap BUN Creatinine Creat Clearance w eGFR Random Glucose Lactic Acid 2.5 H* Calcium Phosphorus Magnesium Total Bilirubin AST ALT Alkaline Phosphatase Total Protein Albumin Problem List - Problems (1) H/O malignant neoplasm of breast Code(s): Z85.3 - PERSONAL HISTORY OF MALIGNANT NEOPLASM OF BREAST (2) HTN (hypertension) Code(s): I10 - ESSENTIAL (PRIMARY) HYPERTENSION (3) Lactate blood increased Code(s): R79.89 - OTHER SPECIFIED ABNORMAL FINDINGS OF BLOOD CHEMISTRY (4) Pneumonia Code(s): J18.9 - PNEUMONIA, UNSPECIFIED ORGANISM Qualifiers: Pneumonia type: due to unspecified organism Laterality: unspecified laterality Lung location: unspecified part of lung Qualified Code(s): J18.9 - Pneumonia, unspecified organism (5) Tachycardia Code(s): R00.0 - TACHYCARDIA, UNSPECIFIED ASSESSMENT/PLAN: R/O Sepsis due to a primary Respiratory tract infection Lactic acidosis: DDX due to medication effect (?) Atypical PNA R/O Viral syndrome / PNA Low clinical suspicion of ILD HTN PE ruled out ABX per ID O2 as needed BD TX Steroids VTE prophylaxis Monitor I & O Follow Microbiology ICU monitoring Dr Duenas Critical care time spent in reviewing chart, evaluating patient and formulating plan - 36 minutes.
--- NOTE | 2018-05-26 14:29 | EKG ---
Test Reason : Blood Pressure : / mmHG Vent. Rate : 127 BPM Atrial Rate : 127 BPM P-R Int : 130 ms QRS Dur : 084 ms QT Int : 304 ms P-R-T Axes : 043 004 008 degrees QTc Int : 441 ms SINUS TACHYCARDIA OTHERWISE NORMAL ECG WHEN COMPARED WITH ECG OF 25-MAY-2018 08:53, NONSPECIFIC T WAVE ABNORMALITY NO LONGER EVIDENT IN ANTERIOR LEADS Confirmed by JOANNE MEZA MD ([id number]) on 05/26/2018 2:28:28 PM Referred By: Confirmed By:JOANNE MEZA MD
[2018-05-26] MEDS ORDERED: ACETAMINOPHEN 325 MG TABLET (FP) ONE (14:46)
[2018-05-26] MEDS: ACETAMINOPHEN 325 MG TABLET (FP) PO PRN (14:50)
--- NOTE | 2018-05-26 15:51 | PN ---
Progress Note, Physician History of Present Illness: seen and examined today in nad. feeling better. still has sob getting up from bed. tachycardia improving. - Current Medication List Current Medications: Active Medications Acetaminophen (Tylenol -) 650 mg PO Q6H PRN PRN Reason: PAIN LEVEL 1-5 Last Admin: 05/26/18 14:50 Dose: 650 mg Albuterol/Ipratropium (Duoneb -) 1 amp NEB Q6H PRN PRN Reason: SHORTNESS OF BREATH Last Admin: 05/26/18 08:31 Dose: 1 amp Chlorhexidine Gluconate (Hibiclens For Decolonization -) 1 applic TP HS [facility] Last Admin: 05/25/18 21:49 Dose: 1 applic Enoxaparin Sodium (Lovenox -) 40 mg SQ DAILY [facility] Last Admin: 05/26/18 09:19 Dose: 40 mg Ceftriaxone Sodium 1 gm/ (Dextrose) 50 mls @ 100 mls/hr IVPB DAILY [facility]; Protocol Last Admin: 05/26/18 09:18 Dose: 100 mls/hr Doxycycline Hyclate 100 mg/ (Dextrose) 100 mls @ 100 mls/hr IVPB BID [facility] Last Admin: 05/26/18 09:18 Dose: 100 mls/hr Ipratropium [place] (Atrovent 0.02% Nebulizer -) 1 amp NEB Q6H PRN PRN Reason: DYSPEPSIA Stop: 06/01/18 11:34 Melatonin (Melatonin) 1 mg PO HS [facility] Last Admin: 05/25/18 22:50 Dose: 1 mg Methylprednisolone Sodium Succinate (Solu-Medrol -) 60 mg IVPUSH Q6H-IV [facility] Last Admin: 05/26/18 15:40 Dose: 60 mg Mupirocin (Bactroban Ointment (For Decolonization) -) 1 applic NS BID [facility] Stop: 05/30/18 13:29 Last Admin: 05/26/18 09:22 Dose: 1 applic - Objective Vital Signs: Vital Signs Temperature 98.2 F 05/26/18 10:00 Pulse Rate 104 H 05/26/18 12:00 Respiratory Rate 21 05/26/18 12:00 Blood Pressure 157/89 05/26/18 12:00 O2 Sat by Pulse Oximetry (%) 96 05/26/18 09:00 Constitutional: Yes: Well Nourished, No Distress, Calm Eyes: Yes: WNL, Conjunctiva Clear, EOM Intact, PERRL HENT: Yes: WNL, Atraumatic, Normocephalic Neck: Yes: WNL, Supple, Trachea Midline Cardiovascular: Yes: Tachycardia, S1, S2. No: Regular Rate and Rhythm, Bradycardia, Pulse Irregular, Bruit, JVD, Gallop, Murmur, Rub, S3, S4, Varicosities Respiratory: Yes: Regular, On Nasal O2, Rhonchi, SOB, Wheezes. No: Rales Gastrointestinal: Yes: Normal Bowel Sounds, Soft. No: Distention, Tenderness Musculoskeletal: Yes: WNL Extremities: Yes: WNL Edema: No Peripheral Pulses WNL: Yes Peripheral Pulses: Left Doralis Pedis: 2+, Right Dorsalis Pedis: 2+ Neurological: Yes: Alert, Oriented Psychiatric: Yes: Alert, Oriented Labs: CBC, BMP 05/26/18 05:30 05/26/18 05:30 INR, PTT INR 1.19 (0.82-1.09) H 05/24/18 14:41 - ....Imaging Chest X-ray: Report Reviewed, Image Reviewed EKG: Report Reviewed, Image Reviewed Other: Report Reviewed, Image Reviewed (tele-sinus tach, no arrhythmias) Assessment/Plan 72 year old woman with a pmh HTN, Breast Ca s/p mastectomy, chemo and RT years ago at [facility], Rheum arthritis on prednisone, 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 Pt was seen and examined today [facility] in [facility] after returning from CT chest. Pt states that she has had a cough for several weeks, she saw her PMD and was given bronchodilators but the cough continued. She travelled to [facility] where her father was in the hospital for pneumonia and he while she was there. states she had cough and sob while in [place] but wanted to come home to be treated. States her LE edema has improved since her last office visit 04/2018. Sinus tach-no arrhythmias have been seen, presume sinus tach due to SIRS/sepsis -improving with treatment of underlying infection -expect HR to continue to improve as overall condition improves -CTA chest showed no definite pulmonary embolism but mild b/l groundlass interstitial markings -last echo as above showed no significant structural heart disease -repeat echo done 05/25/18, no report in chart but images reviewed shows Hyperdynamic LV systolic function, mild MR, no pericardial effusion -Hydrate with IVF as needed for SIRS SOB/SIRS-possible sepsis -as per CCM -no exam findings c/w acute CHF -echo as above HTN-elevated at times, adequate for now -can monitor off HTN meds for now with plan to re-introduce home BP meds as needed Prolonged QTc -QTc 440today was >500 yesterday -pt on doxy now not on azithromycin or quinolones -no additional work up needed at this time, if plan to use QT prolonging meds, monitor EKGs daily No additional inpatient cardiac work up needed at this point. Please call with any additional questions.
[2018-05-26] MEDS: CHLORHEXIDINE GLUCONATE 4% CLEANSER FOR DECOLONIZATION TP SCH (21:32)
[2018-05-26] MEDS: MELATONIN 1 MG TABLET PO SCH (21:33)
[2018-05-27] MEDS: ACETAMINOPHEN 325 MG TABLET (FP) PO PRN ×2 (00:23→14:37)
[2018-05-27] MEDS: methylPREDNISolone NA SUCC 125 MG/2 ML VIAL IVPUSH SCH ×3 (02:33→14:34)
[2018-05-27 06:06] LABS: HEMATOCRIT 31.9 % (32.4-45.2); HEMOGLOBIN 11.2 GM/dL (10.7-15.3); MCH 33.2 pg (25.7-33.7); MCHC 35.1 g/dl (32.0-36.0); MEAN CELL VOLUME 94.6 fl (80-96); MEAN PLT VOLUME 8.2 fl (7.5-11.1); PLATELET COUNT 204 K/MM3 (134-434); RBC 3.37 M/mm3 (3.60-5.2); RDW 12.7 % (11.6-15.6); WHITE BLOOD COUNT 13.7 K/mm3 (4.0-10.0)
[2018-05-27 06:24] LABS: CALCIUM 8.3 mg/dL (8.5-10.1); CHLORIDE 105 mmol/L (98-107); POTASSIUM 3.7 mmol/L (3.5-5.1); SODIUM 143 mmol/L (136-145)
[2018-05-27 06:27] LABS: ANION GAP 11 (8-16); BLOOD UREA NITROGEN 24 mg/dL (7-18); CO2 27 mmol/L (21-32); CREATININE 0.8 mg/dL (0.55-1.02); GLUCOSE,RANDOM 171 mg/dL (74-106); MAGNESIUM 2.2 mg/dL (1.8-2.4); PHOSPHOROUS 2.8 mg/dL (2.5-4.9)
[2018-05-27] MEDS: ALBUTEROL SO4 2.5/IPRATROPIUM 0.5 INH SOL 3 ML VIAL.NEB. NEB PRN (07:30)
[2018-05-27] MEDS ORDERED: POTASSIUM CHLORIDE TABS 20 MEQ TABLET.ER (FP) PO ONE (08:30)
--- NOTE | 2018-05-27 08:56 | PN ---
Progress Note (short form) - Note Progress Note: reports feeling better today less sob still tachycardic no wheezing Vital Signs Period Temp Pulse Resp BP Sys/Ovalle Pulse Ox Last 24 Hr 97.9 F-98.2 F 78-119 15-22 136-167/79-102 96-96 cor-tachycardic lungs bibasilar crackles abd soft,nt ext no edema CBC, BMP 05/27/18 05:30 05/27/18 05:30 Microbiology 05/24/18 14:41 Blood - Peripheral Venous Blood Culture - Preliminary NO GROWTH OBTAINED AFTER 48 HOURS, INCUBATION TO CONTINUE FOR 3 DAYS. 05/24/18 14:41 Blood - Peripheral Venous Blood Culture - Preliminary NO GROWTH OBTAINED AFTER 48 HOURS, INCUBATION TO CONTINUE FOR 3 DAYS. 05/25/18 19:00 Urine - Urine Clean Catch Legionella Antigen - Final 05/25/18 19:00 Urine - Urine Clean Catch Streptococcus pneumoniae Antigen ( M - Final 05/25/18 18:30 Nasopharyngeal Swab Respiratory Virus (PCR) - Preliminary 05/24/18 08:00 Urine - Urine - Catheterized Urine Culture - Final NO GROWTH OBTAINED 05/25/18 18:25 Nasopharyngeal Swab Respiratory Syncytial Virus Ag - Final 05/25/18 10:30 Nasopharyngeal Swab Influenza Types A,B Antigen - Final 05/25/18 10:30 Nasopharyngeal Swab - Final Active Medications Acetaminophen (Tylenol -) 650 mg PO Q6H PRN PRN Reason: PAIN LEVEL 1-5 Last Admin: 05/27/18 00:23 Dose: 650 mg Albuterol/Ipratropium (Duoneb -) 1 amp NEB Q6H PRN PRN Reason: SHORTNESS OF BREATH Last Admin: 05/27/18 07:30 Dose: 1 amp Chlorhexidine Gluconate (Hibiclens For Decolonization -) 1 applic TP HS [facility] Last Admin: 05/26/18 21:32 Dose: 1 applic Enoxaparin Sodium (Lovenox -) 40 mg SQ DAILY [facility] Last Admin: 05/26/18 09:19 Dose: 40 mg Ceftriaxone Sodium 1 gm/ (Dextrose) 50 mls @ 100 mls/hr IVPB DAILY [facility]; Protocol Last Admin: 05/26/18 09:18 Dose: 100 mls/hr Doxycycline Hyclate 100 mg/ (Dextrose) 100 mls @ 100 mls/hr IVPB BID [facility] Last Admin: 05/26/18 21:33 Dose: 100 mls/hr Ipratropium [place] (Atrovent 0.02% Nebulizer -) 1 amp NEB Q6H PRN PRN Reason: DYSPEPSIA Stop: 06/01/18 11:34 Melatonin (Melatonin) 1 mg PO HS [facility] Last Admin: 05/26/18 21:33 Dose: 1 mg Methylprednisolone Sodium Succinate (Solu-Medrol -) 60 mg IVPUSH Q6H-IV [facility] Last Admin: 05/27/18 02:33 Dose: 60 mg Mupirocin (Bactroban Ointment (For Decolonization) -) 1 applic NS BID [facility] Stop: 05/30/18 13:29 Last Admin: 05/26/18 21:32 Dose: 1 applic a/p ?asthmatic bronchitis ?viral pneumonia ?atypical pneumonia continue rocephin/doxycycline legionella antigen negative f/u cultures cardiology f/u tachycardia Problem List - Problems (1) Pneumonia Code(s): J18.9 - PNEUMONIA, UNSPECIFIED ORGANISM Qualifiers: Pneumonia type: due to unspecified organism Laterality: unspecified laterality Lung location: unspecified part of lung Qualified Code(s): J18.9 - Pneumonia, unspecified organism (2) Asthmatic bronchitis Code(s): J45.909 - UNSPECIFIED ASTHMA, UNCOMPLICATED (3) Lactate blood increased Code(s): R79.89 - OTHER SPECIFIED ABNORMAL FINDINGS OF BLOOD CHEMISTRY
[2018-05-27] MEDS ORDERED: DEXTROSE 5%-WATER - 50 ML IVPB ONE (09:01)
[2018-05-27] MEDS ORDERED: cefTRIAXone SODIUM 1 GM VIAL ONE (09:01)
[2018-05-27] MEDS ORDERED: PT OWN MED DRAWER 7, Y5N ONE ×2 (09:02→22:09)
[2018-05-27] MEDS: ENOXAPARIN NA (PORCINE) 40 MG/0.4 ML DISP.SYRIN SQ SCH (09:04)
[2018-05-27] MEDS: CEFTRIAXONE 1 GM in DEXTROSE 5%-WATER - 50 ML IVPB SCH (09:04)
[2018-05-27] MEDS: MUPIROCIN 2% TOPICAL OINTMENT FOR DECOLONIZATION NS SCH (09:05)
[2018-05-27] MEDS: DOXYCYCLINE INJECTION 100 MG in DEXTROSE 5%-WATER - 100 ML IVPB SCH ×2 (09:11→22:16)
--- NOTE | 2018-05-27 09:34 | PN ---
Physical Exam: SUBJECTIVE: Patient seen and examined in the ICU. States that her SOB has improved since yesterday and that overall she is feeling much better than when she came into the hospital. Pt states she has tolerated OOB well and was standing in the room, walking to the chair without assistance when I walked in. Still endorsing a cough, but denies any phlegm. OBJECTIVE: Vital Signs Period Temp Pulse Resp BP Sys/Ovalle Pulse Ox Last 24 Hr 97.9 F-98.2 F 78-119 15-22 135-167/75-102 96 GENERAL: Awake, alert, and fully oriented, in no acute distress. HEAD: Normal with no signs of trauma. EYES: PERRL, sclera anicteric, conjunctiva clear. No lid lag. EARS, NOSE, THROAT: Ears normal, nares patent, oropharynx clear without exudates. Moist mucous membranes. NECK: JVD noted on exam, supple without lymphadenopathy, or masses. LUNGS: Mild crackles diffusely, wheezing has resolved since yesterday HEART: Tachycardic, regular rhythm, normal S1 and S2 without murmur, rub or gallop. ABDOMEN: Soft, nontender, not distended, normoactive bowel sounds, no guarding, no rebound, no masses. MUSCULOSKELETAL: No bony deformities or tenderness. No CVA tenderness. UPPER EXTREMITIES: warm, well-perfused. No cyanosis. No clubbing. No peripheral edema. LOWER EXTREMITIES: warm, well-perfused. No calf tenderness. No peripheral edema. NEUROLOGICAL: Cranial nerves II-XII grossly intact. Normal speech. PSYCHIATRIC: Cooperative. Good eye contact. Appropriate mood and affect. SKIN: Warm, dry, normal turgor, no rashes or lesions noted. Laboratory Results - last 24 hr 05/26/18 05/27/18 05/27/18 08:25 05:30 05:30 WBC 13.7 H RBC 3.37 L Hgb 11.2 Hct 31.9 L MCV 94.6 MCH 33.2 MCHC 35.1 RDW 12.7 Plt Count 204 MPV 8.2 Sodium 143 Potassium 3.7 Chloride 105 Carbon Dioxide 27 Anion Gap 11 BUN 24 H Creatinine 0.8 Creat Clearance w eGFR > 60 Random Glucose 171 H Lactic Acid 2.5 H* Calcium 8.3 L Phosphorus 2.8 Magnesium 2.2 Active Medications Generic Name Dose Route Start Last Admin Trade Name Freq PRN Reason Stop Dose Admin Acetaminophen 650 mg 05/26/18 14:44 05/27/18 00:23 Tylenol - PO 650 mg Q6H PRN Administration PAIN LEVEL 1-5 Albuterol/Ipratropium 1 amp 05/25/18 21:09 05/27/18 07:30 Duoneb - NEB 1 amp Q6H PRN Administration SHORTNESS OF BREATH Chlorhexidine Gluconate 1 applic 05/25/18 22:00 05/26/18 21:32 Hibiclens For Decolonization - TP 1 applic HS [facility] Administration Enoxaparin Sodium 40 mg 05/26/18 10:00 05/27/18 09:04 Lovenox - SQ 40 mg DAILY [facility] Administration Ceftriaxone Sodium 1 gm/ 50 mls @ 100 mls/hr 05/25/18 10:00 05/27/18 09:04 Dextrose IVPB 100 mls/hr DAILY [facility] Administration Protocol Doxycycline Hyclate 100 mg/ 100 mls @ 100 mls/hr 05/26/18 22:00 05/27/18 09: 11 Dextrose IVPB 100 mls/hr BID [facility] Administration Ipratropium [place] 1 amp 05/25/18 11:34 Atrovent 0.02% Nebulizer - NEB 06/01/18 11:34 Q6H PRN DYSPEPSIA Melatonin 1 mg 05/25/18 22:29 05/26/18 21:33 Melatonin PO 1 mg HS [facility] Administration Methylprednisolone Sodium Succinate 60 mg 05/25/18 15:00 05/27/18 09:05 Solu-Medrol - IVPUSH 60 mg Q6H-IV [facility] Administration Mupirocin 1 applic 05/25/18 13:30 05/27/18 09:05 Bactroban Ointment (For Decolonization) - NS 05/30/18 13:29 1 applic BID [facility] Administration ASSESSMENT/PLAN: 72 yo female admitted to the ICU with SOB, tachycardia, cough, Lactic acid, resolving dDx Atypical pneumonia possibly mycobacterial vs viral/bacterial URI complicated by underlying interstitial inflammation Neuro -No known neuro problems at this time Cardio -HTN - currently normotensive Pulmonary -Atypical pneumonia vs viral/bacterial URI complicated by underlying interstitial inflammation / bronchitis? Resolving CTA to r/o PE, awaiting official report, but no PE noted. Abx as below Atrovent 0.02% Q6 PRN Solu-Medrol 60mg IV Q6 Duoneb Q6 PRN Mucinex DM 1 Tab PO BID for chest congestion Renal -Creatinine resolved down to baseline ID -Rocephin 1 gm IV Daily -Doxycycline 100 mg IVPB BID -Lactic acidosis resolving It is unlikely that the Lactic acidosis is due to hypoperfusion/sepsis at this time -Influenza negative, Viral panel ordered, sputum culture ordered, though not currently concerned about TB DVT Prophylaxis -Lovenox 40 mg SQ Daily FEN -Fluids: none -Electrolytes: K 3.7, repleted, recheck BMP in AM -Nutrition: Sodium controlled diet Disposition Transfer to med/surg Problem List - Problems (1) H/O malignant neoplasm of breast Code(s): Z85.3 - PERSONAL HISTORY OF MALIGNANT NEOPLASM OF BREAST (2) HTN (hypertension) Code(s): I10 - ESSENTIAL (PRIMARY) HYPERTENSION (3) Lactate blood increased Code(s): R79.89 - OTHER SPECIFIED ABNORMAL FINDINGS OF BLOOD CHEMISTRY (4) Pneumonia Code(s): J18.9 - PNEUMONIA, UNSPECIFIED ORGANISM Qualifiers: Pneumonia type: due to unspecified organism Laterality: unspecified laterality Lung location: unspecified part of lung Qualified Code(s): J18.9 - Pneumonia, unspecified organism (5) Tachycardia Code(s): R00.0 - TACHYCARDIA, UNSPECIFIED Visit type - Emergency Visit Emergency Visit: Yes ED Registration Date: 05/24/18 Care time: The patient presented to the Emergency Department on the above date and was hospitalized for further evaluation of their emergent condition. - New Patient This patient is new to me today: No - Critical Care Critical Care patient: Yes Total Critical Care Time (in minutes): 36 Critical Care Statement: The care of this patient involved high complexity decision making to prevent further life threatening deterioration of the patient 's condition and/or to evaluate & treat vital organ system(s) failure or risk of failure.
[2018-05-27] MEDS ORDERED: predniSONE 20 MG TABLET (UD) PO SCH (11:45)
--- NOTE | 2018-05-27 11:45 | PN ---
Teaching Attending Note Name of Resident: Darnell Sebastian ATTENDING PHYSICIAN STATEMENT I saw and evaluated the patient. I reviewed the resident's note and discussed the case with the resident. I agree with the resident's findings and plan as documented. SUBJECTIVE: Patient seen and examined in the ICU. Still with some SOB and fatigue, but better than yesterday. Cough is still dry and not able to expectorate. No hemoptysis. Intake & Output 05/24/18 05/25/18 05/26/18 05/27/18 23:59 23:59 23:59 23:59 Intake Total 1200 1502 1220 380 Output Total 800 Balance 0953 448 6352 380 Weight 134 lb 3.2 oz Last Vital Signs Temp Pulse Resp BP Pulse Ox 97.5 F L 103 H 20 151/77 99 05/27/18 10:00 05/27/18 10:00 05/27/18 10:00 05/27/18 10:00 05/27/18 09:00 Active Medications Acetaminophen (Tylenol -) 650 mg PO Q6H PRN PRN Reason: PAIN LEVEL 1-5 Last Admin: 05/27/18 00:23 Dose: 650 mg Chlorhexidine Gluconate (Hibiclens For Decolonization -) 1 applic TP [facility] Last Admin: 05/26/18 21:32 Dose: 1 applic Enoxaparin Sodium (Lovenox -) 40 mg SQ DAILY [facility] Last Admin: 05/27/18 09:04 Dose: 40 mg Ceftriaxone Sodium 1 gm/ (Dextrose) 50 mls @ 100 mls/hr IVPB DAILY [facility]; Protocol Last Admin: 05/27/18 09:04 Dose: 100 mls/hr Doxycycline Hyclate 100 mg/ (Dextrose) 100 mls @ 100 mls/hr IVPB BID [facility] Last Admin: 05/27/18 09:11 Dose: 100 mls/hr Ipratropium [place] (Atrovent 0.02% Nebulizer -) 1 amp NEB Q6H PRN PRN Reason: DYSPEPSIA Stop: 06/01/18 11:34 Melatonin (Melatonin) 1 mg PO HS [facility] Last Admin: 05/26/18 21:33 Dose: 1 mg Methylprednisolone Sodium Succinate (Solu-Medrol -) 60 mg IVPUSH Q6H-IV [facility] Last Admin: 05/27/18 09:05 Dose: 60 mg Mupirocin (Bactroban Ointment (For Decolonization) -) 1 applic NS BID [facility] Stop: 05/30/18 13:29 Last Admin: 05/27/18 09:05 Dose: 1 applic Prednisone (Deltasone -) 40 mg PO DAILY [facility] GENERAL: Awake, alert, and fully oriented, in no acute distress. HEAD: Normal with no signs of trauma. EYES: PERRL, sclera anicteric, conjunctiva clear. No lid lag. EARS, NOSE, THROAT: Ears normal, nares patent, oropharynx clear without exudates. Moist mucous membranes. NECK: JVD noted on exam, supple without lymphadenopathy, or masses. LUNGS: Coarse breath sounds and rhonchi, no wheeze HEART: Tachycardic, regular rhythm, normal S1 and S2 without murmur, rub or gallop. ABDOMEN: Soft, nontender, not distended, normoactive bowel sounds, no guarding, no rebound, no masses. No hepatomegaly or splenomegaly. MUSCULOSKELETAL: Normal range of motion at all joints. No bony deformities or tenderness. No CVA tenderness. UPPER EXTREMITIES: warm, well-perfused. No cyanosis. No clubbing. No peripheral edema. LOWER EXTREMITIES: warm, well-perfused. No calf tenderness. No peripheral edema. NEUROLOGICAL: Non-focal PSYCHIATRIC: Cooperative. Good eye contact. Appropriate mood and affect. SKIN: Warm, dry, normal turgor, no rashes or lesions noted. Laboratory Results - last 24 hr 05/27/18 05/27/18 05:30 05:30 WBC 13.7 H RBC 3.37 L Hgb 11.2 Hct 31.9 L MCV 94.6 MCH 33.2 MCHC 35.1 RDW 12.7 Plt Count 204 MPV 8.2 Sodium 143 Potassium 3.7 Chloride 105 Carbon Dioxide 27 Anion Gap 11 BUN 24 H Creatinine 0.8 Creat Clearance w eGFR > 60 Random Glucose 171 H Calcium 8.3 L Phosphorus 2.8 Magnesium 2.2 Problem List - Problems (1) H/O malignant neoplasm of breast Code(s): Z85.3 - PERSONAL HISTORY OF MALIGNANT NEOPLASM OF BREAST (2) HTN (hypertension) Code(s): I10 - ESSENTIAL (PRIMARY) HYPERTENSION (3) Lactate blood increased Code(s): R79.89 - OTHER SPECIFIED ABNORMAL FINDINGS OF BLOOD CHEMISTRY (4) Pneumonia Code(s): J18.9 - PNEUMONIA, UNSPECIFIED ORGANISM Qualifiers: Pneumonia type: due to unspecified organism Laterality: unspecified laterality Lung location: unspecified part of lung Qualified Code(s): J18.9 - Pneumonia, unspecified organism (5) Tachycardia Code(s): R00.0 - TACHYCARDIA, UNSPECIFIED ASSESSMENT/PLAN: R/O Sepsis due to a primary Respiratory tract infection Lactic acidosis: DDX due to medication effect (?) Atypical PNA R/O Viral syndrome / PNA Low clinical suspicion of ILD HTN PE ruled out ABX per ID O2 as needed BD TX Steroid taper VTE prophylaxis Monitor I & O Follow Microbiology Floor Dr Duenas Critical care time spent in reviewing chart, evaluating patient and formulating plan - 36 minutes. OBJECTIVE: ASSESSMENT AND PLAN:
--- NOTE | 2018-05-27 12:19 | PN ---
Physical Exam: SUBJECTIVE: Patient seen and examined. Feeling better. OBJECTIVE: Vital Signs Period Temp Pulse Resp BP Sys/[place] Pulse Ox Last 24 Hr 97.5 F-98.2 F 78-119 15-22 135-167/75-102 96-99 GENERAL: Awake, alert, and fully oriented, in no acute distress. LUNGS: no wheezing, bibasilar crackles ABDOMEN: Soft, nontender, not distended, normoactive bowel sounds, no guarding, no rebound MUSCULOSKELETAL: Normal range of motion at all joints. No bony deformities or tenderness. No CVA tenderness. UPPER EXTREMITIES: 2+ pulses, warm, well-perfused. No cyanosis. No clubbing. No peripheral edema. LOWER EXTREMITIES: 2+ pulses, warm, well-perfused. No calf tenderness. No peripheral edema. No calf tenderness. NEUROLOGICAL: Cranial nerves II-XII intact. Normal speech. Laboratory Results - last 24 hr 05/27/18 05/27/18 05:30 05:30 WBC 13.7 H RBC 3.37 L Hgb 11.2 Hct 31.9 L MCV 94.6 MCH 33.2 MCHC 35.1 RDW 12.7 Plt Count 204 MPV 8.2 Sodium 143 Potassium 3.7 Chloride 105 Carbon Dioxide 27 Anion Gap 11 BUN 24 H Creatinine 0.8 Creat Clearance w eGFR > 60 Random Glucose 171 H Calcium 8.3 L Phosphorus 2.8 Magnesium 2.2 TSH 0.06 L Free T4 1.33 Active Medications Generic Name Dose Route Start Last Admin Trade Name Freq PRN Reason Stop Dose Admin Acetaminophen 650 mg 05/26/18 14:44 05/27/18 00:23 Tylenol - PO 650 mg Q6H PRN Administration PAIN LEVEL 1-5 Chlorhexidine Gluconate 1 applic 05/25/18 22:00 05/26/18 21:32 Hibiclens For Decolonization - TP 1 applic HS [facility] Administration Enoxaparin Sodium 40 mg 05/26/18 10:00 05/27/18 09:04 Lovenox - SQ 40 mg DAILY [facility] Administration Ceftriaxone Sodium 1 gm/ 50 mls @ 100 mls/hr 05/25/18 10:00 05/27/18 09:04 Dextrose IVPB 100 mls/hr DAILY [facility] Administration Protocol Doxycycline Hyclate 100 mg/ 100 mls @ 100 mls/hr 05/26/18 22:00 05/27/18 09: 11 Dextrose IVPB 100 mls/hr BID [facility] Administration Ipratropium [place] 1 amp 05/25/18 11:34 Atrovent 0.02% Nebulizer - NEB 06/01/18 11:34 Q6H PRN DYSPEPSIA Melatonin 1 mg 05/25/18 22:29 05/26/18 21:33 Melatonin PO 1 mg HS [facility] Administration Methylprednisolone Sodium Succinate 60 mg 05/25/18 15:00 05/27/18 09:05 Solu-Medrol - IVPUSH 60 mg Q6H-IV [facility] Administration Mupirocin 1 applic 05/25/18 13:30 05/27/18 09:05 Bactroban Ointment (For Decolonization) - NS 05/30/18 13:29 1 applic BID [facility] Administration ASSESSMENT/PLAN 72 year-old female with a PMH significant for HTN and breast cancer s/p resection and chemotherapy, and rheumatoid arthritis. Admitted for severe sepsis likely secondary to pneumonia. Severe sepsis likely secondary to pneumonia v. asthmatic bronchitis --afebrile, no leukocytosis; lactic acid trending down, likely from albuterol --continues to improve, no wheezing; observed satting 95% on room air at rest --05/25: CT chest: negative for PE; mild bilateral mid and upper lung field groundglass interstitial thickening --05/25: CTAP: no acute process --azithro dc'd due to prolonged QTc; continue ceftriaxone (day #3), doxycycline (day #3) --flu, RSV, Legionella negative --duonebs q6h PRN --continue IV steroids --ID and pulmonary following SOB, tachycardia --likely secondary to sepsis; HR improved, no arrythmias on tele --duplex negative for DVT; CTA negative for PE --echo done, report still not in [facility]; per cardiology, hyperdynamic LV function, mild MR Prolonged QT interval --avoid QT prolonging agents Hypertension --BP stable --not on anti-hypertensives Breast cancer --no acute issues Hypokalemia --repleted Hypomagnesemia --repleted FEN Fluids: PO intake adequate Electrolytes: replete as indicated Nutrition: low sodium DVT prophylaxis: subq lovenox Physical therapy Dispo: continues to require inpatient care. Full code. Visit type - Emergency Visit Emergency Visit: Yes ED Registration Date: 05/24/18 Care time: The patient presented to the Emergency Department on the above date and was hospitalized for further evaluation of their emergent condition. - New Patient This patient is new to me today: No - Critical Care Critical Care patient: Yes Total Critical Care Time (in minutes): 35 Critical Care Statement: The care of this patient involved high complexity decision making to prevent further life threatening deterioration of the patient 's condition and/or to evaluate & treat vital organ system(s) failure or risk of failure.
[2018-05-27] MEDS ORDERED: guaiFENesin/D-METHORPHAN HB 1 EACH TAB.ER.12H PO SCH (14:00)
[2018-05-27 16:32] LABS: COLD AGGLUTININS Negative (Neg <1:32); MYCOPLASMA PNEUMONIAE,IG G AB 932 U/mL (0-99); MYCOPLASMA PNEUMONIAE,IGM AB <770 U/mL (0-769)
[2018-05-27] MEDS ORDERED: ACETAMINOPHEN 325 MG TABLET (FP) PO PRN (17:37)
[2018-05-27] MEDS: IPRATROPIUM BR 0.02% 0.5 MG/2.5 ML VIAL.NEB. NEB PRN (21:25)
[2018-05-27] MEDS ORDERED: MUPIROCIN 2% TOPICAL OINTMENT FOR DECOLONIZATION NS SCH (22:00)
[2018-05-27] MEDS ORDERED: CHLORHEXIDINE GLUCONATE 4% CLEANSER FOR DECOLONIZATION TP SCH (22:00)
[2018-05-27] MEDS: MELATONIN 1 MG TABLET PO SCH (22:16)
[2018-05-27] MEDS: guaiFENesin 600 MG TABLET.ER (FP) PO SCH (22:16)
[2018-05-28 06:49] LABS: HEMATOCRIT 31.2 % (32.4-45.2); HEMOGLOBIN 11.1 GM/dL (10.7-15.3); MCH 33.6 pg (25.7-33.7); MCHC 35.5 g/dl (32.0-36.0); MEAN CELL VOLUME 94.6 fl (80-96); MEAN PLT VOLUME 7.7 fl (7.5-11.1); PLATELET COUNT 218 K/MM3 (134-434); RBC 3.29 M/mm3 (3.60-5.2); RDW 12.6 % (11.6-15.6); WHITE BLOOD COUNT 12.3 K/mm3 (4.0-10.0)
[2018-05-28 07:05] LABS: ANION GAP 8 (8-16); BLOOD UREA NITROGEN 25 mg/dL (7-18); CALCIUM 8.2 mg/dL (8.5-10.1); CHLORIDE 105 mmol/L (98-107); CO2 28 mmol/L (21-32); CREATININE 0.9 mg/dL (0.55-1.02); GLUCOSE,RANDOM 114 mg/dL (74-106); MAGNESIUM 2.1 mg/dL (1.8-2.4); PHOSPHOROUS 2.4 mg/dL (2.5-4.9); POTASSIUM 3.6 mmol/L (3.5-5.1); SODIUM 141 mmol/L (136-145)
[2018-05-28] MEDS ORDERED: PT OWN MED DRAWER 7, Y5N ONE (09:41)
[2018-05-28] MEDS ORDERED: cefTRIAXone SODIUM 1 GM VIAL ONE (09:41)
[2018-05-28] MEDS ORDERED: DEXTROSE 5%-WATER - 50 ML IVPB ONE (09:42)
--- NOTE | 2018-05-28 10:05 | PN ---
Progress Note, Physician History of Present Illness: pulmonary alert,feeling better,sob continues to improve,less cough - Current Medication List Current Medications: Active Medications Acetaminophen (Tylenol -) 650 mg PO Q6H PRN PRN Reason: PAIN LEVEL 1-5 Enoxaparin Sodium (Lovenox -) 40 mg SQ DAILY [facility] Guaifenesin (Mucinex -) 600 mg PO BID [facility] Last Admin: 05/27/18 22:16 Dose: 600 mg Ceftriaxone Sodium 1 gm/ (Dextrose) 50 mls @ 100 mls/hr IVPB DAILY [facility]; Protocol Doxycycline Hyclate 100 mg/ (Dextrose) 100 mls @ 100 mls/hr IVPB BID [facility] Last Admin: 05/27/18 22:16 Dose: 100 mls/hr Ipratropium [place] (Atrovent 0.02% Nebulizer -) 1 amp NEB Q6H PRN PRN Reason: DYSPEPSIA Stop: 06/01/18 11:34 Last Admin: 05/27/18 21:25 Dose: 1 amp Melatonin (Melatonin) 1 mg PO [facility] Last Admin: 05/27/18 22:16 Dose: 1 mg Prednisone (Deltasone -) 40 mg PO DAILY [facility] - Objective Vital Signs: Vital Signs Temperature 97.6 F 05/28/18 06:00 Pulse Rate 82 05/28/18 06:00 Respiratory Rate 20 05/28/18 06:00 Blood Pressure 143/86 05/28/18 06:00 O2 Sat by Pulse Oximetry (%) 96 05/27/18 21:00 Constitutional: Yes: Well Nourished, Calm Eyes: Yes: WNL HENT: Yes: WNL Neck: Yes: WNL Cardiovascular: Yes: Regular Rate and Rhythm, S1, S2 Respiratory: Yes: Wheezes (few wheezes) Gastrointestinal: Yes: Normal Bowel Sounds, Soft Extremities: Yes: WNL Edema: No Labs: CBC, BMP 05/28/18 06:00 05/28/18 05:30 INR, PTT INR 1.19 (0.82-1.09) H 05/24/18 14:41 Problem List - Problems (1) Bronchitis Code(s): J40 - BRONCHITIS, NOT SPECIFIED ACUTE OR CHRONIC (2) Pneumonia Code(s): J18.9 - PNEUMONIA, UNSPECIFIED ORGANISM Qualifiers: Pneumonia type: due to unspecified organism Laterality: unspecified laterality Lung location: unspecified part of lung Qualified Code(s): J18.9 - Pneumonia, unspecified organism (3) Dyspnea and respiratory abnormalities Code(s): R06.00 - DYSPNEA, UNSPECIFIED; R06.89 - OTHER ABNORMALITIES OF BREATHING (4) Lactate blood increased Code(s): R79.89 - OTHER SPECIFIED ABNORMAL FINDINGS OF BLOOD CHEMISTRY (5) Sepsis Code(s): A41.9 - SEPSIS, UNSPECIFIED ORGANISM Qualifiers: Sepsis type: sepsis due to unspecified organism Qualified Code(s): A41.9 - Sepsis, unspecified organism (6) Tachycardia Code(s): R00.0 - TACHYCARDIA, UNSPECIFIED (7) HTN (hypertension) Code(s): I10 - ESSENTIAL (PRIMARY) HYPERTENSION (8) H/O malignant neoplasm of breast Code(s): Z85.3 - PERSONAL HISTORY OF MALIGNANT NEOPLASM OF BREAST Assessment/Plan IMP DYSPNEA/COUGH/CONGESTION IMPROVED SEPSIS/SIRS ELEVATED LACTATE LEVEL IMPROVING TACHYCARDIA H/O BREST CA H/O MENINGIOMA S/P RESECTION HTN PLAN PREDNISONE O2 ABX PER ID MONITOR LYTES,RENAL FUNCTION PFTS OUTPATIENT DR LONG Problem List - Problems (1) Bronchitis Code(s): J40 - BRONCHITIS, NOT SPECIFIED ACUTE OR CHRONIC (2) Pneumonia Code(s): J18.9 - PNEUMONIA, UNSPECIFIED ORGANISM Qualifiers: Pneumonia type: due to unspecified organism Laterality: unspecified laterality Lung location: unspecified part of lung Qualified Code(s): J18.9 - Pneumonia, unspecified organism (3) Dyspnea and respiratory abnormalities Code(s): R06.00 - DYSPNEA, UNSPECIFIED; R06.89 - OTHER ABNORMALITIES OF BREATHING (4) Lactate blood increased Code(s): R79.89 - OTHER SPECIFIED ABNORMAL FINDINGS OF BLOOD CHEMISTRY (5) Sepsis Code(s): A41.9 - SEPSIS, UNSPECIFIED ORGANISM Qualifiers: Sepsis type: sepsis due to unspecified organism Qualified Code(s): A41.9 - Sepsis, unspecified organism (6) Tachycardia Code(s): R00.0 - TACHYCARDIA, UNSPECIFIED (7) HTN (hypertension) Code(s): I10 - ESSENTIAL (PRIMARY) HYPERTENSION (8) H/O malignant neoplasm of breast Code(s): Z85.3 - PERSONAL HISTORY OF MALIGNANT NEOPLASM OF BREAST
--- NOTE | 2018-05-28 10:10 | PN ---
Physical Exam: SUBJECTIVE: Patient seen and examined. Feels better. OBJECTIVE: Vital Signs Period Temp Pulse Resp BP Sys/O[place]le Pulse Ox Last 24 Hr 97.4 F-97.8 F 77-105 18-20 143-154/77-97 96-96 GENERAL: Awake, alert, and fully oriented, in no acute distress. LUNGS: clear ABDOMEN: Soft, nontender, not distended, normoactive bowel sounds, no guarding, no rebound MUSCULOSKELETAL: Normal range of motion at all joints. No bony deformities or tenderness. No CVA tenderness. UPPER EXTREMITIES: 2+ pulses, warm, well-perfused. No cyanosis. No clubbing. No peripheral edema. LOWER EXTREMITIES: 2+ pulses, warm, well-perfused. No calf tenderness. No peripheral edema. No calf tenderness. NEUROLOGICAL: Cranial nerves II-XII intact. Normal speech. Laboratory Results - last 24 hr 05/26/18 05/27/18 05/28/18 05:30 05:30 05:30 WBC RBC Hgb Hct MCV MCH MCHC RDW Plt Count MPV Sodium 143 141 Potassium 3.7 3.6 Chloride 105 105 Carbon Dioxide 27 28 Anion Gap 11 8 BUN 24 H 25 H Creatinine 0.8 0.9 Creat Clearance w eGFR > 60 > 60 Random Glucose 171 H 114 H Calcium 8.3 L 8.2 L Phosphorus 2.8 2.4 L Magnesium 2.2 2.1 TSH 0.06 L Free T4 1.33 Cold Agglutinins Negative M.pneumoniae IgG Titer 932 H M.pneumoniae IgM Titer <770 05/28/18 06:00 WBC 12.3 H RBC 3.29 L Hgb 11.1 Hct 31.2 L MCV 94.6 MCH 33.6 MCHC 35.5 RDW 12.6 Plt Count 218 MPV 7.7 Sodium Potassium Chloride Carbon Dioxide Anion Gap BUN Creatinine Creat Clearance w eGFR Random Glucose Calcium Phosphorus Magnesium TSH Free T4 Cold Agglutinins M.pneumoniae IgG Titer M.pneumoniae IgM Titer Active Medications Generic Name Dose Route Start Last Admin Trade Name Freq PRN Reason Stop Dose Admin Acetaminophen 650 mg 05/27/18 17:37 Tylenol - PO Q6H PRN PAIN LEVEL 1-5 Enoxaparin Sodium 40 mg 05/28/18 10:00 Lovenox - SQ DAILY [facility] Guaifenesin 600 mg 05/27/18 22:00 05/27/18 22:16 Mucinex - PO 600 mg BID [facility] Administration Ceftriaxone Sodium 1 gm/ 50 mls @ 100 mls/hr 05/28/18 10:00 Dextrose IVPB DAILY [facility] Protocol Doxycycline Hyclate 100 mg/ 100 mls @ 100 mls/hr 05/27/18 22:00 05/27/18 22: 16 Dextrose IVPB 100 mls/hr BID [facility] Administration Ipratropium [place] 1 amp 05/27/18 17:37 05/27/18 21:25 Atrovent 0.02% Nebulizer - NEB 06/01/18 11:34 1 amp Q6H PRN Administration DYSPEPSIA Melatonin 1 mg 05/27/18 22:00 05/27/18 22:16 Melatonin PO 1 mg HS [facility] Administration Prednisone 40 mg 05/28/18 10:00 Deltasone - PO DAILY [facility] ASSESSMENT/PLAN: 72 year-old female with a PMH significant for HTN and breast cancer s/p resection and chemotherapy, and rheumatoid arthritis. Admitted for severe sepsis likely secondary to pneumonia. Severe sepsis likely secondary to pneumonia v. asthmatic bronchitis --afebrile, mild leukocytosis on steroids --continues to improve, no wheezing --continue ceftriaxone (day #4), doxycycline (day #4) --flu, RSV, Legionella negative --duonebs q6h PRN --switched to prednisone by pulm SOB, tachycardia --likely secondary to sepsis; HR improved, no arrythmias on tele --05/25 Echo: normal LV, normal RV; trace to mild MR; trace PI Hypertension --BP stable --not on anti-hypertensives Breast cancer --no acute issues Hypothyroidism --TSH low, free T4 wnl, free T3 pending FEN Fluids: PO intake adequate Electrolytes: replete as indicated Nutrition: low sodium DVT prophylaxis: subq lovenox Physical therapy Dispo: continues to require inpatient care. Full code. Visit type - Emergency Visit Emergency Visit: Yes ED Registration Date: 05/24/18 Care time: The patient presented to the Emergency Department on the above date and was hospitalized for further evaluation of their emergent condition. - New Patient This patient is new to me today: No - Critical Care Critical Care patient: No
[2018-05-28] MEDS: CEFTRIAXONE 1 GM in DEXTROSE 5%-WATER - 50 ML IVPB SCH (10:23)
[2018-05-28] MEDS: ENOXAPARIN NA (PORCINE) 40 MG/0.4 ML DISP.SYRIN SQ SCH (10:23)
[2018-05-28] MEDS: guaiFENesin 600 MG TABLET.ER (FP) PO SCH ×2 (10:24→21:36)
[2018-05-28] MEDS: predniSONE 20 MG TABLET (UD) PO SCH (10:24)
[2018-05-28] MEDS: DOXYCYCLINE INJECTION 100 MG in DEXTROSE 5%-WATER - 100 ML IVPB SCH ×2 (13:00→21:35)
--- NOTE | 2018-05-28 13:09 | PN ---
Progress Note (short form) - Note Progress Note: reports feeling better today intermittent sob Vital Signs Period Temp Pulse Resp BP Sys/O[place]le Pulse Ox Last 24 Hr 97.4 F-97.8 F 77-105 18-20 143-154/77-97 96-96 cor-rrr lungs decreased bs at bases no wheezes abd soft,nt ext no edema CBC, BMP 05/28/18 06:00 05/28/18 05:30 Microbiology 05/24/18 14:41 Blood - Peripheral Venous Blood Culture - Preliminary NO GROWTH OBTAINED AFTER 72 HOURS, INCUBATION TO CONTINUE FOR 2 DAYS. 05/24/18 14:41 Blood - Peripheral Venous Blood Culture - Preliminary NO GROWTH OBTAINED AFTER 72 HOURS, INCUBATION TO CONTINUE FOR 2 DAYS. 05/25/18 19:00 Urine - Urine Clean Catch Legionella Antigen - Final 05/25/18 19:00 Urine - Urine Clean Catch Streptococcus pneumoniae Antigen ( M - Final 05/25/18 18:30 Nasopharyngeal Swab Respiratory Virus (PCR) - Preliminary 05/24/18 08:00 Urine - Urine - Catheterized Urine Culture - Final NO GROWTH OBTAINED 05/25/18 18:25 Nasopharyngeal Swab Respiratory Syncytial Virus Ag - Final 05/25/18 10:30 Nasopharyngeal Swab Influenza Types A,B Antigen - Final 05/25/18 10:30 Nasopharyngeal Swab - Final Laboratory Tests 05/26/18 05:30 M.pneumoniae IgG Titer 932 H M.pneumoniae IgM Titer <770 cold agglutinins negative a/p ?asthmatic bronchitis ?viral pneumonia ?atypical pneumonia continue rocephin/doxycycline day #5 legionella antigen negative mycoplasma serology negative tachycardia improved Problem List - Problems (1) Pneumonia Code(s): J18.9 - PNEUMONIA, UNSPECIFIED ORGANISM Qualifiers: Pneumonia type: due to unspecified organism Laterality: unspecified laterality Lung location: unspecified part of lung Qualified Code(s): J18.9 - Pneumonia, unspecified organism (2) Asthmatic bronchitis Code(s): J45.909 - UNSPECIFIED ASTHMA, UNCOMPLICATED (3) Lactate blood increased Code(s): R79.89 - OTHER SPECIFIED ABNORMAL FINDINGS OF BLOOD CHEMISTRY
[2018-05-28] MEDS: IPRATROPIUM BR 0.02% 0.5 MG/2.5 ML VIAL.NEB. NEB PRN (20:20)
[2018-05-28] MEDS: MELATONIN 1 MG TABLET PO SCH (21:36)
[2018-05-29] MEDS ORDERED: DEXTROSE 5%-WATER - 50 ML IVPB ONE (09:18)
[2018-05-29] MEDS ORDERED: PT OWN MED DRAWER 7, Y5N ONE (09:18)
[2018-05-29] MEDS ORDERED: cefTRIAXone SODIUM 1 GM VIAL ONE (09:18)
[2018-05-29] MEDS: guaiFENesin 600 MG TABLET.ER (FP) PO SCH ×2 (09:28→21:33)
[2018-05-29] MEDS: ENOXAPARIN NA (PORCINE) 40 MG/0.4 ML DISP.SYRIN SQ SCH (09:28)
[2018-05-29] MEDS: predniSONE 20 MG TABLET (UD) PO SCH ×3 (09:28→10:27)
--- NOTE | 2018-05-29 10:03 | PN ---
Progress Note, Physician History of Present Illness: pulmonary alert,still congested,+ cough - Current Medication List Current Medications: Active Medications Acetaminophen (Tylenol -) 650 mg PO Q6H PRN PRN Reason: PAIN LEVEL 1-5 Enoxaparin Sodium (Lovenox -) 40 mg SQ DAILY [facility] Last Admin: 05/29/18 09:28 Dose: 40 mg Guaifenesin (Mucinex -) 600 mg PO BID [facility] Last Admin: 05/29/18 09:28 Dose: 600 mg Ceftriaxone Sodium 1 gm/ (Dextrose) 50 mls @ 100 mls/hr IVPB DAILY [facility]; Protocol Last Admin: 05/28/18 10:23 Dose: 100 mls/hr Doxycycline Hyclate 100 mg/ (Dextrose) 100 mls @ 100 mls/hr IVPB BID [facility] Last Admin: 05/28/18 21:35 Dose: 100 mls/hr Ipratropium [place] (Atrovent 0.02% Nebulizer -) 1 amp NEB Q6H PRN PRN Reason: DYSPEPSIA Stop: 06/01/18 11:34 Last Admin: 05/28/18 20:20 Dose: 1 amp Melatonin (Melatonin) 1 mg PO HS [facility] Last Admin: 05/28/18 21:36 Dose: 1 mg Prednisone (Deltasone -) 40 mg PO DAILY [facility] Last Admin: 05/29/18 09:28 Dose: 40 mg - Objective Vital Signs: Vital Signs Temperature 97.7 F 05/29/18 09:37 Pulse Rate 79 05/29/18 09:37 Respiratory Rate 20 05/29/18 09:37 Blood Pressure 150/87 05/29/18 09:37 O2 Sat by Pulse Oximetry (%) 96 05/28/18 21:00 Constitutional: Yes: Well Nourished, Calm Eyes: Yes: WNL HENT: Yes: WNL Neck: Yes: WNL Cardiovascular: Yes: Regular Rate and Rhythm, S1, S2 Respiratory: Yes: Rhonchi, Wheezes (scattered uzair wheezing and rhonchi) Gastrointestinal: Yes: Normal Bowel Sounds, Soft Extremities: Yes: WNL Edema: No Labs: CBC, BMP Problem List - Problems (1) Bronchitis Code(s): J40 - BRONCHITIS, NOT SPECIFIED ACUTE OR CHRONIC (2) Pneumonia Code(s): J18.9 - PNEUMONIA, UNSPECIFIED ORGANISM Qualifiers: Pneumonia type: due to unspecified organism Laterality: unspecified laterality Lung location: unspecified part of lung Qualified Code(s): J18.9 - Pneumonia, unspecified organism (3) Dyspnea and respiratory abnormalities Code(s): R06.00 - DYSPNEA, UNSPECIFIED; R06.89 - OTHER ABNORMALITIES OF BREATHING (4) Lactate blood increased Code(s): R79.89 - OTHER SPECIFIED ABNORMAL FINDINGS OF BLOOD CHEMISTRY (5) Sepsis Code(s): A41.9 - SEPSIS, UNSPECIFIED ORGANISM Qualifiers: Sepsis type: sepsis due to unspecified organism Qualified Code(s): A41.9 - Sepsis, unspecified organism (6) Tachycardia Code(s): R00.0 - TACHYCARDIA, UNSPECIFIED (7) HTN (hypertension) Code(s): I10 - ESSENTIAL (PRIMARY) HYPERTENSION (8) H/O malignant neoplasm of breast Code(s): Z85.3 - PERSONAL HISTORY OF MALIGNANT NEOPLASM OF BREAST Assessment/Plan IMP DYSPNEA/COUGH/CONGESTION IMPROVING ASTHMATIC BRONCHITIS SEPSIS/SIRS H/O BREST CA H/O MENINGIOMA S/P RESECTION HTN PLAN PREDNISONE 60mg daily Inhaled bronchodilators O2 ABX PER ID MONITOR LYTES,RENAL FUNCTION PFTS OUTPATIENT DR LONG Problem List - Problems (1) Bronchitis Code(s): J40 - BRONCHITIS, NOT SPECIFIED ACUTE OR CHRONIC (2) Pneumonia Code(s): J18.9 - PNEUMONIA, UNSPECIFIED ORGANISM Qualifiers: Pneumonia type: due to unspecified organism Laterality: unspecified laterality Lung location: unspecified part of lung Qualified Code(s): J18.9 - Pneumonia, unspecified organism (3) Dyspnea and respiratory abnormalities Code(s): R06.00 - DYSPNEA, UNSPECIFIED; R06.89 - OTHER ABNORMALITIES OF BREATHING (4) Lactate blood increased Code(s): R79.89 - OTHER SPECIFIED ABNORMAL FINDINGS OF BLOOD CHEMISTRY (5) Sepsis Code(s): A41.9 - SEPSIS, UNSPECIFIED ORGANISM Qualifiers: Sepsis type: sepsis due to unspecified organism Qualified Code(s): A41.9 - Sepsis, unspecified organism (6) Tachycardia Code(s): R00.0 - TACHYCARDIA, UNSPECIFIED (7) HTN (hypertension) Code(s): I10 - ESSENTIAL (PRIMARY) HYPERTENSION (8) H/O malignant neoplasm of breast Code(s): Z85.3 - PERSONAL HISTORY OF MALIGNANT NEOPLASM OF BREAST
[2018-05-29] MEDS: CEFTRIAXONE 1 GM in DEXTROSE 5%-WATER - 50 ML IVPB SCH (10:13)
[2018-05-29] MEDS: DOXYCYCLINE INJECTION 100 MG in DEXTROSE 5%-WATER - 100 ML IVPB SCH ×2 (10:54→21:33)
--- NOTE | 2018-05-29 17:19 | PN ---
Physical Exam: SUBJECTIVE: Patient seen and examined. Feels weak and depressed. OBJECTIVE: Vital Signs Period Temp Pulse Resp BP Sys/Ovalle Pulse Ox Last 24 Hr 97.7 F-98.9 F 77-103 18-20 146-154/83-90 90-96 GENERAL: Awake, alert, and fully oriented, in no acute distress. LUNGS: clear ABDOMEN: Soft, nontender, not distended, normoactive bowel sounds, no guarding, no rebound MUSCULOSKELETAL: Normal range of motion at all joints. No bony deformities or tenderness. No CVA tenderness. UPPER EXTREMITIES: 2+ pulses, warm, well-perfused. No cyanosis. No clubbing. No peripheral edema. LOWER EXTREMITIES: 2+ pulses, warm, well-perfused. No calf tenderness. No peripheral edema. No calf tenderness. NEUROLOGICAL: Cranial nerves II-XII intact. Normal speech. Laboratory Results - last 24 hr 05/28/18 06:00 Free T3 1.7 L Current Medications Generic Name Dose Route Start Last Admin Trade Name Freq PRN Reason Stop Dose Admin Acetaminophen 650 mg 05/27/18 17:37 Tylenol - PO Q6H PRN PAIN LEVEL 1-5 Atenolol 50 mg 05/29/18 18:45 05/29/18 20:01 Tenormin - PO 50 mg DAILY LUANN Administration Chlorthalidone 25 mg 05/29/18 18:45 05/29/18 20:31 Hygroton - PO 25 mg DAILY LUANN Administration Enoxaparin Sodium 40 mg 05/28/18 10:00 05/29/18 09:28 Lovenox - SQ 40 mg DAILY LUANN Administration Guaifenesin 600 mg 05/27/18 22:00 05/29/18 09:28 Mucinex - PO 600 mg BID LUANN Administration Ceftriaxone Sodium 1 gm/ 50 mls @ 100 mls/hr 05/28/18 10:00 05/29/18 10:13 Dextrose IVPB 100 mls/hr DAILY LUANN Administration Protocol Doxycycline Hyclate 100 mg/ 100 mls @ 100 mls/hr 05/27/18 22:00 05/29/18 10: 54 Dextrose IVPB 100 mls/hr BID LUANN Administration Ipratropium [place] 1 amp 05/27/18 17:37 05/29/18 20:30 Atrovent 0.02% Nebulizer - NEB 06/01/18 11:34 1 amp Q6H PRN Administration DYSPEPSIA Melatonin 1 mg 05/27/18 22:00 05/28/18 21:36 Melatonin PO 1 mg HS LUANN Administration Prednisone 60 mg 05/29/18 10:15 05/29/18 10:27 Deltasone - PO 60 mg DAILY LUANN Administration Sertraline HCl 100 mg 05/29/18 18:45 05/29/18 20:01 Zoloft - PO 100 mg DAILY LUANN Administration Simethicone 250 mg 05/29/18 22:00 Mylicon - PO BID LUANN ASSESSMENT/PLAN: 72 year-old female with a PMH significant for HTN and breast cancer s/p resection and chemotherapy. Admitted for severe sepsis likely secondary to pneumonia. Severe sepsis likely secondary to pneumonia v. asthmatic bronchitis --afebrile, mild leukocytosis on steroids --continues to improve, no wheezing; pre-post 90% with ambulation --continue ceftriaxone (day #5), doxycycline (day #5) --flu, RSV, Legionella negative --duonebs q6h PRN --continue prednisone PO SOB, tachycardia --likely secondary to sepsis; HR improved --05/25 Echo: normal LV, normal RV; trace to mild MR; trace PI Hypertension --BP stable --restart atenolol, chlorthalidone Breast cancer --no acute issues Hypothyroidism --TSH low, free T4 wnl, free T3 low, likely subclinical hypothyroidism Depression --continue Zoloft FEN Fluids: PO intake adequate Electrolytes: replete as indicated Nutrition: low sodium DVT prophylaxis: subq lovenox Physical therapy Dispo: continues to require inpatient care. Full code. Visit type - Emergency Visit Emergency Visit: Yes ED Registration Date: 05/24/18 Care time: The patient presented to the Emergency Department on the above date and was hospitalized for further evaluation of their emergent condition. - New Patient This patient is new to me today: No - Critical Care Critical Care patient: No
[2018-05-29] MEDS ORDERED: SERTRALINE HCL 50 MG TABLET (FP) PO SCH (18:45)
[2018-05-29] MEDS: ATENOLOL 50 MG TABLET (FP) PO SCH (20:01)
[2018-05-29] MEDS: SERTRALINE HCL 50 MG TABLET (FP) PO SCH (20:01)
[2018-05-29] MEDS: IPRATROPIUM BR 0.02% 0.5 MG/2.5 ML VIAL.NEB. NEB PRN (20:30)
[2018-05-29] MEDS: CHLORTHALIDONE 25 MG TABLET PO SCH (20:31)
[2018-05-29] MEDS: MELATONIN 1 MG TABLET PO SCH (21:33)
[2018-05-29] MEDS ORDERED: SIMETHICONE 250 MG PO SCH (22:00)
[2018-05-30] MEDS: SIMETHICONE 80 MG TAB.CHEW (FP) PO SCH ×3 (00:10→22:03)
[2018-05-30] MEDS ORDERED: DEXTROSE 5%-WATER - 50 ML IVPB ONE (09:58)
[2018-05-30] MEDS ORDERED: cefTRIAXone SODIUM 1 GM VIAL ONE (09:58)
[2018-05-30] MEDS ORDERED: PATIENT'S OWN MEDICATION (NON-FORMULARY) (Atenolol/Chlorthalidone [Atenolol-Chlorthalidone PO SCH (10:00)
[2018-05-30] MEDS: DOXYCYCLINE INJECTION 100 MG in DEXTROSE 5%-WATER - 100 ML IVPB SCH (10:15)
[2018-05-30] MEDS: predniSONE 20 MG TABLET (UD) PO SCH (10:17)
[2018-05-30] MEDS: guaiFENesin 600 MG TABLET.ER (FP) PO SCH ×2 (10:17→22:03)
[2018-05-30] MEDS: SERTRALINE HCL 50 MG TABLET (FP) PO SCH (10:17)
[2018-05-30] MEDS: ENOXAPARIN NA (PORCINE) 40 MG/0.4 ML DISP.SYRIN SQ SCH (10:22)
[2018-05-30] MEDS: ATENOLOL 50 MG TABLET (FP) PO SCH (10:29)
--- NOTE | 2018-05-30 10:58 | PN ---
Progress Note (short form) - Note Progress Note: PULMONARY Still feels short of breath with chest tightness and cough with clear sputum. Wheezing less with nebs. Vital Signs Period Temp Pulse Resp BP Sys/Ovalle Pulse Ox Last 24 Hr 97.7 F-98.4 F 69-112 18-20 136-152/73-89 90-94 Gen: NAD in chair Heart: RRR Lung: distant breath sounds, no wheezes Abd: soft, nontender Ext: no edema CBC, BMP 05/28/18 06:00 05/28/18 05:30 Active Medications Acetaminophen (Tylenol -) 650 mg PO Q6H PRN PRN Reason: PAIN LEVEL 1-5 Last Admin: 05/30/18 00:45 Dose: 650 mg Atenolol (Tenormin -) 50 mg PO DAILY [facility] Last Admin: 05/30/18 10:29 Dose: 50 mg Chlorthalidone (Hygroton -) 25 mg PO DAILY [facility] Last Admin: 05/29/18 20:31 Dose: 25 mg Enoxaparin Sodium (Lovenox -) 40 mg SQ DAILY [facility] Last Admin: 05/30/18 10:22 Dose: 40 mg Guaifenesin (Mucinex -) 600 mg PO BID [facility] Last Admin: 05/30/18 10:17 Dose: 600 mg Ceftriaxone Sodium 1 gm/ (Dextrose) 50 mls @ 100 mls/hr IVPB DAILY [facility]; Protocol Last Admin: 05/29/18 10:13 Dose: 100 mls/hr Doxycycline Hyclate 100 mg/ (Dextrose) 100 mls @ 100 mls/hr IVPB BID [facility] Last Admin: 05/30/18 10:15 Dose: 100 mls/hr Ipratropium [place] (Atrovent 0.02% Nebulizer -) 1 amp NEB Q6H PRN PRN Reason: DYSPEPSIA Stop: 06/01/18 11:34 Last Admin: 05/29/18 20:30 Dose: 1 amp Melatonin (Melatonin) 1 mg PO HS [facility] Last Admin: 05/29/18 21:33 Dose: 1 mg Prednisone (Deltasone -) 60 mg PO DAILY [facility] Last Admin: 05/30/18 10:17 Dose: 60 mg Sertraline HCl (Zoloft -) 100 mg PO DAILY [facility] Last Admin: 05/30/18 10:17 Dose: 100 mg Simethicone (Mylicon -) 240 mg PO BID [facility] Last Admin: 05/30/18 10:17 Dose: 240 mg A/P Acute Bronchitis r/o Acute Bronchospasm Sepsis improved h/o Breast Ca h/o Meningioma HTN - continue antibiotics per ID - will change steroids to IV x 24hrs and reassess - inhaled bronchodilators standing - O2 to keep SpO2 >90% - outpt PFTs - DVT prophylaxis
[2018-05-30] MEDS ORDERED: ALBUTEROL SO4 0.083% IH SOL 2.5 MG/3 ML VIAL.NEB. NEB PRN (10:59)
[2018-05-30] MEDS: ALBUTEROL SO4 2.5/IPRATROPIUM 0.5 INH SOL 3 ML VIAL.NEB. NEB SCH ×3 (11:38→20:35)
[2018-05-30] MEDS: CEFTRIAXONE 1 GM in DEXTROSE 5%-WATER - 50 ML IVPB SCH (12:21)
--- NOTE | 2018-05-30 13:40 | PN ---
Physical Exam: SUBJECTIVE: Patient seen and examined. She ambulated with PT this AM, did well, c/o weakness. Now in chair. OBJECTIVE: Vital Signs Period Temp Pulse Resp BP Sys/Ovalle Pulse Ox Last 24 Hr 97.7 F-98.4 F 69-112 18-20 136-152/73-89 94 PE Neuro: alert, awake, cn 2-12intact Pulm: course bs, no wheezing CV: s1 s2 rrr no mrg Abd: s nt nd + bs Ext: no le edema Active Medications Generic Name Dose Route Start Last Admin Trade Name Freq PRN Reason Stop Dose Admin Acetaminophen 650 mg 05/27/18 17:37 05/30/18 00:45 Tylenol - PO 650 mg Q6H PRN Administration PAIN LEVEL 1-5 Albuterol Sulfate 1 amp 05/30/18 10:59 Ventolin 0.083% Nebulizer Soln - NEB Q4H PRN SHORT OF BREATH/WHEEZING Albuterol/Ipratropium 1 amp 05/30/18 12:00 05/30/18 11:38 Duoneb - NEB 1 amp RQID LUANN Administration Atenolol 50 mg 05/29/18 18:45 05/30/18 10:29 Tenormin - PO 50 mg DAILY LUANN Administration Chlorthalidone 25 mg 05/29/18 18:45 05/29/18 20:31 Hygroton - PO 25 mg DAILY LUANN Administration Enoxaparin Sodium 40 mg 05/28/18 10:00 05/30/18 10:22 Lovenox - SQ 40 mg DAILY [facility] Administration Guaifenesin 600 mg 05/27/18 22:00 05/30/18 10:17 Mucinex - PO 600 mg BID LUANN Administration Ceftriaxone Sodium 1 gm/ 50 mls @ 100 mls/hr 05/28/18 10:00 05/30/18 12:21 Dextrose IVPB 100 mls/hr DAILY [facility] Administration Protocol Doxycycline Hyclate 100 mg/ 100 mls @ 100 mls/hr 05/27/18 22:00 05/30/18 10: 15 Dextrose IVPB 100 mls/hr BID [facility] Administration Melatonin 1 mg 05/27/18 22:00 05/29/18 21:33 Melatonin PO 1 mg HS LUANN Administration Methylprednisolone Sodium Succinate 40 mg 05/30/18 18:00 Solu-Medrol - IVPUSH Q8H-IV LUANN Sertraline HCl 100 mg 05/29/18 18:45 05/30/18 10:17 Zoloft - PO 100 mg DAILY [facility] Administration Simethicone 240 mg 05/29/18 22:00 05/30/18 10:17 Mylicon - PO 240 mg BID LUANN Administration Imaging: - 05/25 Echo: normal LV, normal RV; trace to mild MR; trace PI Assessment: 72 year old female with a PMH significant for HTN and breast cancer s/p resection and chemotherapy. Admitted for severe sepsis likely secondary to pneumonia. Plan: 1. Severe sepsis likely secondary to pneumonia v. asthmatic bronchitis - Weakness on ambulation with some residual chest tightness - D/w pulm, maintain IV steroids x24hrs, dc home with 40mg x5days - ID to evaluate abx; ceftriaxone (day #6), doxycycline (day #6) - PT 90% sop2 ambulation, dose not meet for home o2 2. SOB, tachycardia - Likely due to above - Resolved 3. Hypertension - Continue Atenolol, chlorthalidone 4. Hypothyroidism - TSH low, free T4 wnl, free T3 low, likely subclinical hypothyroidism 5. Depression - Continue Zoloft 6. DVT ppx - Lovenox sq Physical therapy Dispo: continues to require inpatient care. Full code. Visit type - Emergency Visit Emergency Visit: Yes ED Registration Date: 05/24/18 Care time: The patient presented to the Emergency Department on the above date and was hospitalized for further evaluation of their emergent condition. - New Patient This patient is new to me today: Yes Date on this admission: 05/30/18 - Critical Care Critical Care patient: No
[2018-05-30] MEDS: CHLORTHALIDONE 25 MG TABLET PO SCH (14:29)
--- NOTE | 2018-05-30 15:13 | PN ---
Progress Note (short form) - Note Progress Note: day #7 antibiotics still wheezing Vital Signs Period Temp Pulse Resp BP Sys/Ovalle Pulse Ox Last 24 Hr 97.7 F-98.4 F 69-112 18-20 128-152/68-84 92-94 cor-rrr lungs bilateral wheezes abd soft,nt ext no edema CBC, BMP 05/28/18 06:00 05/28/18 05:30 Laboratory Tests 05/26/18 05:30 M.pneumoniae IgG Titer 932 H M.pneumoniae IgM Titer <770 cold agglutinins negative Microbiology 05/27/18 17:00 Sputum - Expectorated Direct Acid Fast Bacilli Smear - Final 05/24/18 14:41 Blood - Peripheral Venous Blood Culture - Final NO GROWTH AFTER 5 DAYS INCUBATION 05/24/18 14:41 Blood - Peripheral Venous Blood Culture - Final NO GROWTH AFTER 5 DAYS INCUBATION 05/25/18 19:00 Urine - Urine Clean Catch Legionella Antigen - Final 05/25/18 19:00 Urine - Urine Clean Catch Streptococcus pneumoniae Antigen ( M - Final 05/25/18 18:30 Nasopharyngeal Swab Respiratory Virus (PCR) - Preliminary 05/24/18 08:00 Urine - Urine - Catheterized Urine Culture - Final NO GROWTH OBTAINED 05/25/18 18:25 Nasopharyngeal Swab Respiratory Syncytial Virus Ag - Final 05/25/18 10:30 Nasopharyngeal Swab Influenza Types A,B Antigen - Final 05/25/18 10:30 Nasopharyngeal Swab - Final a/p ?asthmatic bronchitis ?viral pneumonia ?atypical pneumonia continue rocephin/doxycycline day #7 legionella antigen negative mycoplasma serology negative respiratory panel pending unlikely pertussis without hacking cough but will get pcr and resume zithromax po for 5 days tachycardia improved d/c ceftriaxone/doxycycline po zithromax back on iv steroids per pulmonary Problem List - Problems (1) Pneumonia Code(s): J18.9 - PNEUMONIA, UNSPECIFIED ORGANISM Qualifiers: Pneumonia type: due to unspecified organism Laterality: unspecified laterality Lung location: unspecified part of lung Qualified Code(s): J18.9 - Pneumonia, unspecified organism (2) Asthmatic bronchitis Code(s): J45.909 - UNSPECIFIED ASTHMA, UNCOMPLICATED (3) Lactate blood increased Code(s): R79.89 - OTHER SPECIFIED ABNORMAL FINDINGS OF BLOOD CHEMISTRY
[2018-05-30] MEDS: AZITHROMYCIN 250 MG TABLET PO SCH (17:06)
[2018-05-30] MEDS: methylPREDNISolone NA SUCC 40 MG/1 ML VIAL IVPUSH SCH (17:06)
[2018-05-30] MEDS ORDERED: PT OWN MED DRAWER 7, Y5N ONE (21:56)
[2018-05-30] MEDS: MELATONIN 1 MG TABLET PO SCH (22:03)
[2018-05-31] MEDS: methylPREDNISolone NA SUCC 40 MG/1 ML VIAL IVPUSH SCH ×3 (01:59→18:04)
[2018-05-31] MEDS: ALBUTEROL SO4 2.5/IPRATROPIUM 0.5 INH SOL 3 ML VIAL.NEB. NEB SCH ×4 (08:49→21:40)
[2018-05-31] MEDS ORDERED: PT OWN MED DRAWER 7, Y5N ONE ×2 (09:17→20:35)
[2018-05-31] MEDS: SIMETHICONE 80 MG TAB.CHEW (FP) PO SCH ×2 (09:37→22:14)
[2018-05-31] MEDS: AZITHROMYCIN 250 MG TABLET PO SCH (09:38)
[2018-05-31] MEDS: SERTRALINE HCL 50 MG TABLET (FP) PO SCH (09:38)
[2018-05-31] MEDS: guaiFENesin 600 MG TABLET.ER (FP) PO SCH ×2 (09:38→22:14)
[2018-05-31] MEDS: ATENOLOL 50 MG TABLET (FP) PO SCH (09:39)
[2018-05-31] MEDS: ENOXAPARIN NA (PORCINE) 40 MG/0.4 ML DISP.SYRIN SQ SCH (09:39)
[2018-05-31] MEDS: CHLORTHALIDONE 25 MG TABLET PO SCH (09:39)
--- NOTE | 2018-05-31 11:10 | PN ---
Progress Note (short form) - Note Progress Note: PULMONARY Breathing better but still with some chest tightness. Respiratory panel positive for Influenza B. Vital Signs Period Temp Pulse Resp BP Sys/Ovalle Pulse Ox Last 24 Hr 97.5 F-98.6 F 73-108 20-20 124-144/59-80 91-92 Gen: NAD in chair Heart: RRR Lung: better breath sounds, no wheezes Abd: soft, nontender Ext: no edema CBC, BMP 05/28/18 06:00 05/28/18 05:30 Active Medications Acetaminophen (Tylenol -) 650 mg PO Q6H PRN PRN Reason: PAIN LEVEL 1-5 Last Admin: 05/30/18 00:45 Dose: 650 mg Albuterol Sulfate (Ventolin 0.083% Nebulizer Soln -) 1 amp NEB Q4H PRN PRN Reason: SHORT OF BREATH/WHEEZING Albuterol/Ipratropium (Duoneb -) 1 amp NEB RQID [facility] Last Admin: 05/31/18 08:49 Dose: 1 amp Atenolol (Tenormin -) 50 mg PO DAILY [facility] Last Admin: 05/31/18 09:39 Dose: 50 mg Azithromycin (Zithromax -) 250 mg PO DAILY [facility] Last Admin: 05/31/18 09:38 Dose: 250 mg Chlorthalidone (Hygroton -) 25 mg PO DAILY [facility] Last Admin: 05/31/18 09:39 Dose: 25 mg Enoxaparin Sodium (Lovenox -) 40 mg SQ DAILY [facility] Last Admin: 05/31/18 09:39 Dose: 40 mg Guaifenesin (Mucinex -) 600 mg PO BID [facility] Last Admin: 05/31/18 09:38 Dose: 600 mg Melatonin (Melatonin) 1 mg PO HS [facility] Last Admin: 05/30/18 22:03 Dose: 1 mg Methylprednisolone Sodium Succinate (Solu-Medrol -) 40 mg IVPUSH Q8H-IV [facility] Last Admin: 05/31/18 09:37 Dose: 40 mg Sertraline HCl (Zoloft -) 100 mg PO DAILY [facility] Last Admin: 05/31/18 09:38 Dose: 100 mg Simethicone (Mylicon -) 240 mg PO BID [facility] Last Admin: 05/31/18 09:37 Dose: 240 mg A/P Acute Bronchitis Acute Bronchospasm Sepsis improved h/o Breast Ca h/o Meningioma HTN - continue antibiotics per ID - can change steroids to PO prednisone and taper as outpt - inhaled bronchodilators standing - O2 to keep SpO2 >90% - outpt PFTs - DVT prophylaxis
--- NOTE | 2018-05-31 12:24 | PN ---
Progress Note (short form) - Note Progress Note: improved ambulating in the hallway no fevers Vital Signs Period Temp Pulse Resp BP Sys/Ovalle Pulse Ox Last 24 Hr 97.5 F-98.6 F 73-108 20-20 124-144/59-80 91-92 cor-rrr lungs no wheezing today abd soft,nt ext no edema CBC, BMP 05/28/18 06:00 05/28/18 05:30 influenza PCR B is positive a/p INfluenza B- probably acquired in [facility] no role for tamiflu will isolate until discharged no further antibiotics steroids per pulmonary d/w patient influenza diagnosis should f/u with pulmonary please call back if needed d/w hospitalist Problem List - Problems (1) Pneumonia Code(s): J18.9 - PNEUMONIA, UNSPECIFIED ORGANISM Qualifiers: Pneumonia type: due to unspecified organism Laterality: unspecified laterality Lung location: unspecified part of lung Qualified Code(s): J18.9 - Pneumonia, unspecified organism (2) Asthmatic bronchitis Code(s): J45.909 - UNSPECIFIED ASTHMA, UNCOMPLICATED (3) Lactate blood increased Code(s): R79.89 - OTHER SPECIFIED ABNORMAL FINDINGS OF BLOOD CHEMISTRY
--- NOTE | 2018-05-31 15:13 | PN ---
Physical Exam: SUBJECTIVE: Patient seen and examined. C/o chest tightness OBJECTIVE: Vital Signs Period Temp Pulse Resp BP Sys/Ovalle Pulse Ox Last 24 Hr 97.5 F-98.6 F 87-108 20-20 124-144/59-80 91-92 PE Neuro: alert, awake, cn 2-12intact Pulm: course bs, no wheezing CV: s1 s2 rrr no mrg Abd: s nt nd + bs Ext: no le edema Active Medications Generic Name Dose Route Start Last Admin Trade Name Freq PRN Reason Stop Dose Admin Acetaminophen 650 mg 05/27/18 17:37 05/30/18 00:45 Tylenol - PO 650 mg Q6H PRN Administration PAIN LEVEL 1-5 Albuterol Sulfate 1 amp 05/30/18 10:59 Ventolin 0.083% Nebulizer Soln - NEB Q4H PRN SHORT OF BREATH/WHEEZING Albuterol/Ipratropium 1 amp 05/30/18 12:00 05/31/18 08:49 Duoneb - NEB 1 amp RQID LUANN Administration Atenolol 50 mg 05/29/18 18:45 05/31/18 09:39 Tenormin - PO 50 mg DAILY [facility]ANN Administration Azithromycin 250 mg 05/30/18 15:30 05/31/18 09:38 Zithromax - PO 250 mg DAILY [facility]ANN Administration Chlorthalidone 25 mg 05/29/18 18:45 05/31/18 09:39 Hygroton - PO 25 mg DAILY LUANN Administration Enoxaparin Sodium 40 mg 05/28/18 10:00 05/31/18 09:39 Lovenox - SQ 40 mg DAILY LUANN Administration Guaifenesin 600 mg 05/27/18 22:00 05/31/18 09:38 Mucinex - PO 600 mg BID LUANN Administration Melatonin 1 mg 05/27/18 22:00 05/30/18 22:03 Melatonin PO 1 mg HS LUANN Administration Methylprednisolone Sodium Succinate 40 mg 05/30/18 18:00 05/31/18 09:37 Solu-Medrol - IVPUSH 40 mg Q8H-IV LUANN Administration Sertraline HCl 100 mg 05/29/18 18:45 05/31/18 09:38 Zoloft - PO 100 mg DAILY LUANN Administration Simethicone 240 mg 05/29/18 22:00 05/31/18 09:37 Mylicon - PO 240 mg BID LUANN Administration Imaging: - 05/25 Echo: normal LV, normal RV; trace to mild MR; trace PI Assessment: 72 year old female with a PMH significant for HTN and breast cancer s/p resection and chemotherapy. Admitted for severe sepsis likely secondary to pneumonia. Plan: 1. Severe sepsis likely secondary to influenza B - Due to influenza B, confirmed PCR test resulted today - Can stop abx - No need to treat tamiflu, outside of window - No oxygen requirement on pre and post today - DC home tomorrow with prednisone taper and pulmonary follow up next week - s/p 7 days ceftriaxone/ doxycycline 2. SOB, tachycardia - Likely due to above - Resolved 3. Hypertension - Continue Atenolol, chlorthalidone 4. Hypothyroidism - TSH low, free T4 wnl, free T3 low, likely subclinical hypothyroidism 5. Depression - Continue Zoloft 6. DVT ppx - Lovenox sq Physical therapy Dispo - DC home tomorrow Visit type - Emergency Visit Emergency Visit: Yes ED Registration Date: 05/24/18 Care time: The patient presented to the Emergency Department on the above date and was hospitalized for further evaluation of their emergent condition. - New Patient This patient is new to me today: No - Critical Care Critical Care patient: No
--- NOTE | 2018-05-31 16:55 | EKG ---
Test Reason : Blood Pressure : / mmHG Vent. Rate : 104 BPM Atrial Rate : 104 BPM P-R Int : 128 ms QRS Dur : 090 ms QT Int : 314 ms P-R-T Axes : 043 -03 050 degrees QTc Int : 412 ms SINUS TACHYCARDIA MODERATE VOLTAGE CRITERIA FOR LVH, MAY BE NORMAL VARIANT NONSPECIFIC T WAVE ABNORMALITY ABNORMAL ECG Confirmed by MD MARIANNE, WOJCIECH ([id number]) on 05/31/2018 4:55:36 PM Referred By: Radha SINGH Confirmed By:WOJCIECH LOPES MD
[2018-05-31] MEDS: MELATONIN 1 MG TABLET PO SCH (22:14)
[2018-06-01] MEDS: methylPREDNISolone NA SUCC 40 MG/1 ML VIAL IVPUSH SCH (01:40)
[2018-06-01 07:01] VITALS: PULSE 90
[2018-06-01] MEDS: ALBUTEROL SO4 2.5/IPRATROPIUM 0.5 INH SOL 3 ML VIAL.NEB. NEB SCH ×2 (08:05→11:18)
[2018-06-01] MEDS ORDERED: PT OWN MED DRAWER 7, Y5N ONE (09:11)
[2018-06-01] MEDS: guaiFENesin 600 MG TABLET.ER (FP) PO SCH (09:15)
[2018-06-01] MEDS: SERTRALINE HCL 50 MG TABLET (FP) PO SCH (09:15)
[2018-06-01] MEDS: SIMETHICONE 80 MG TAB.CHEW (FP) PO SCH (09:15)
[2018-06-01] MEDS: AZITHROMYCIN 250 MG TABLET PO SCH (09:15)
[2018-06-01] MEDS: ATENOLOL 50 MG TABLET (FP) PO SCH (09:15)
[2018-06-01] MEDS: ENOXAPARIN NA (PORCINE) 40 MG/0.4 ML DISP.SYRIN SQ SCH (09:16)
[2018-06-01] MEDS: CHLORTHALIDONE 25 MG TABLET PO SCH (09:16)
[2018-06-01] MEDS ORDERED: methylPREDNISolone NA SUCC 40 MG/1 ML VIAL IVPUSH SCH (10:00)
[2018-06-01 11:16] VITALS: BP 107/60; TEMP 98.6
--- NOTE | 2018-06-01 11:35 | DS ---
Physical Exam: SUBJECTIVE: Patient seen and examined. Denies sob, some chest tenderness (msk related). Discussed ok to go home without mask and plan for discharge in great detail. All questions answered. OBJECTIVE: Vital Signs Period Temp Pulse Resp BP Sys/Ovalle Pulse Ox Last 24 Hr 97.7 F-98.6 F 88-102 19-20 107-148/60-83 91-91 PE Neuro: alert, awake, cn 2-12intact Pulm: course bs, no wheezing CV: s1 s2 rrr no mrg Abd: s nt nd + bs Ext: no le edema HOSPITAL COURSE: Date of Admission:05/24/18 Date of Discharge: 06/01/18 Minutes to complete discharge: 40 Discharge Summary Reason For Visit: PNEUMONIA Current Active Problems Asthmatic bronchitis (Acute) Bronchitis (Acute) Dyspnea and respiratory abnormalities (Acute) H/O malignant neoplasm of breast (Acute) HTN (hypertension) (Acute) Lactate blood increased (Acute) Pneumonia (Acute) Sepsis (Acute) Tachycardia (Acute) Hospital Course: Initial Hospital Course: Briefly, this 72 year old female with a PMH significant for HTN and breast cancer s/p resection and chemotherapy. Traveled to [facility] last week to visit sick family member(s) in the ICU. While there developed URI symptoms of nasal congestion/rhinorrhea and productive cough. Returned to [place] and was experiencing subjective fever and chills. Seen at her primary clinic and was started on azithromycin and nebulizers, however persistent cough and SOB ensued. Imaging: - 05/25 Echo: normal LV, normal RV; trace to mild MR; trace PI Subsequent Hospital Course/Progress Note/ DC summary: Assessment: 72 year old female with a PMH significant for HTN and breast cancer s/p resection and chemotherapy. Admitted for severe sepsis likely secondary to pneumonia. Plan: 1. Severe sepsis likely secondary to influenza B - Due to influenza B, confirmed PCR test resulted today - No need to treat tamiflu, outside of window - No oxygen requirement on pre and post - DC home with prednisone taper and pulmonary follow up next week - s/p 7 days ceftriaxone/ doxycycline - Above discussed in detail with patient 2. SOB, tachycardia - Likely due to above - Resolved 3. Hypertension - Continue Atenolol, chlorthalidone 4. Hypothyroidism - TSH low, free T4 wnl, free T3 low, likely subclinical hypothyroidism 5. Depression - Continue Zoloft 6. RA - Resume prednisone 5mg once steroid taper completed Dispo: - Home with above meds and follow up Condition: Stable - Instructions Diet, Activity, Other Instructions: Please return to the ED for any new, persistent, or worsening symptoms. Follow up with your PCP in 1 week Continue steroids (Prednisone) as directed, once completed, resume 5mg daily for RA Follow up with Pulmonary ( Referral enclosed Dr. GARZA) next Wednesday Referrals: Twin Garza MD, [Staff Physician] - 1 Week Disposition: HOME - Home Medications Comprehensive Discharge Medication List: Ambulatory Orders Atenolol/Chlorthalidone [Atenolol-Chlorthalidone 50-25] 1 tab PO DAILY 05/29/18 Omeprazole 20 mg PO DAILY 05/29/18 Sertraline HCl [Zoloft] 100 mg PO DAILY 05/29/18 Simethicone [Phazyme] 250 mg PO BID 05/29/18 Prednisone 2.5 mg PO DAILY #30 mg 05/31/18 Prednisone 10 mg PO 18 #38 tablet 05/31/18 This patient is new to me today: No Emergency Visit: Yes ED Registration Date: 05/24/18 Care time: The patient presented to the Emergency Department on the above date and was hospitalized for further evaluation of their emergent condition. Critical Care patient: No - Discharge Referral Referred to [facility] No
== END 2018-06-01 13:04 | disposition home or self-care (01) | DRG 871 ==
LOC: JER 13:47 → JERBED 16:28 → J4S 17:40 → JICU 05-25 12:54 → J5S 05-27 17:18 → J6S 05-31 21:14
PROVIDERS: ADMIT Internal Medicine; ATTEND Nurse Practitioner Acute Care
DX: A41.9 Sepsis, unspecified organism (principal); J18.9 Pneumonia, unspecified organism; E87.2 Acidosis; J84.9 Interstitial pulmonary disease, unspecified; R00.0 Tachycardia, unspecified; I10 Essential (primary) hypertension; E87.6 Hypokalemia; J20.9 Acute bronchitis, unspecified; Z85.3 Personal history of malignant neoplasm of breast; E03.9 Hypothyroidism, unspecified; F32.9 Major depressive disorder, single episode, unspecified; E83.42 Hypomagnesemia; J10.1 Influenza due to other identified influenza virus with other respiratory manifestations
CPT/HCPCS: 36415; 36600; 71045-TC-FY; 71275-TC; 74177-TC; 80048; 80053; 81003; 82550; 82803; 83605; 83735; 83880; 84100; 84439; 84443; 84481; 84484; 85025; 85027; 85379; 85610; 85730; 86157; 86738; 87040; 87086; 87116; 87206; 87420; 87633; 87798; 87804; 87899; 93005; 93010; 93306-TC; 93970-TC; 94010; 94150; 94640; 94761; 97116-GP; 97161-GP; 99284-25; J0131; J7030; J7620

== ENCOUNTER 2021-06-12 07:32 | Day surgery (SDC) | payer OTHER ==
[2021-06-10 16:12] VITALS: BMI 25.0
[2021-06-12] MEDS ORDERED: LIDOCAINE HCL/PF 2% SDV 5ML VIAL ONE (08:58)
[2021-06-12] MEDS ORDERED: PROPOFOL 20 ML ONE ×2 (08:58)
[2021-06-12 09:48] VITALS: TEMP 98
[2021-06-12 10:05] VITALS: BP 121/65; PULSE 78
== END 2021-06-12 10:13 | disposition home or self-care (01) ==
LOC: FASU-ENDO 07:32
PROVIDERS: ATTEND Internal Medicine Gastroenterology
PROC: 0DBN8ZX Excision of Sigmoid Colon, Via Natural or Artificial Opening Endoscopic, Diagnostic (ICD-10-PCS; 2021-06-12)
PROC: 0DBP8ZX Excision of Rectum, Via Natural or Artificial Opening Endoscopic, Diagnostic (ICD-10-PCS; principal; 2021-06-12 09:01)
DX: K57.30 Diverticulosis of large intestine without perforation or abscess without bleeding (principal); K63.89 Other specified diseases of intestine; R10.32 Left lower quadrant pain
CPT/HCPCS: 88305-TC

== ENCOUNTER 2022-02-02 19:17 | Observation (INO) | payer OTHER ==
[2022-02-02 19:29] VITALS: BMI 25.2
[2022-02-02] MEDS ORDERED: SODIUM CHLORIDE 0.9% 500 ML INFUS.BAG IV ONE (21:38)
[2022-02-02] MEDS ORDERED: ACETAMINOPHEN 1000 MG/100 ML BAG IVPB ONE (21:39)
[2022-02-02] MEDS ORDERED: ACETAMINOPHEN INJECTION 100 ML IVPB ONE (21:46)
[2022-02-02 22:43] LABS: BASO % 0.4 % (0-2.0); EOS % 2.2 % (0-4.5); HEMATOCRIT 36.9 % (32.4-45.2); HEMOGLOBIN 13.1 GM/dL (10.7-15.3); LYMPH % 21.8 % (8-40); MCH 33.4 pg (25.7-33.7); MCHC 35.4 g/dl (32.0-36.0); MEAN CELL VOLUME 94.4 fl (80-96); MEAN PLT VOLUME 8.2 fl (7.5-11.1); NEUT % 69.6 % (42.8-82.8); PLATELET COUNT 176 10^3/uL (134-434); RBC 3.91 M/mm3 (3.60-5.2); RDW 12.9 % (11.6-15.6); WHITE BLOOD COUNT 8.9 K/mm3 (4.0-10.0)
[2022-02-02 23:25] LABS: ALBUMIN 3.8 g/dl (3.4-5.0); BLOOD UREA NITROGEN 11.3 mg/dL (7-18)
[2022-02-02 23:28] LABS: CREATININE 0.9 mg/dL (0.55-1.3)
[2022-02-02 23:30] LABS: BILIRUBIN,TOTAL 0.8 mg/dL (0.2-1); TOT PROT 7.3 g/dl (6.4-8.2)
[2022-02-03] MEDS ORDERED: FAMOTIDINE 20 MG/50 ML IVPB 20 MG/50 ML MG IVPB ONE ×2 (01:50→02:29)
[2022-02-03] MEDS ORDERED: MAG HYDROX/AL HYDROX/SIMETH 30 ML UNIT-DOSE CUP PO ONE (01:50)
[2022-02-03] MEDS ORDERED: MAG HYDROX/AL HYDROX/SIMETH 30 ML UNIT-DOSE CUP ONE (02:14)
[2022-02-03 02:44] LABS: EPI CELLS 2 /uL (0-25.1); HYALINE CASTS 0 /uL (0-3.1); URINE APPEARANCE CLEAR; URINE BACTERIA 8 /uL (0-1359); URINE BILIRUBIN NEGATIVE (NEGATIVE); URINE COLOR YELLOW; URINE GLUCOSE (UA) NEGATIVE (NEGATIVE); URINE KETONE NEGATIVE (NEGATIVE); URINE LEUK ESTERASE NEGATIVE (NEGATIVE); URINE NITRITE NEGATIVE (NEGATIVE); URINE PROTEIN NEGATIVE (NEGATIVE); URINE RBC 3 /uL (0-23.9); URINE UROBILINOGEN 0.2 mg/dL (0.2-1.0); URINE WBC 5 /uL (0-25.8)
[2022-02-03] MEDS ORDERED: ACETAMINOPHEN 1000 MG/100 ML BAG IVPB PRN (05:50)
[2022-02-03] MEDS ORDERED: ACETAMINOPHEN 325 MG TABLET (FP) PO PRN (05:51)
[2022-02-03 08:38] LABS: BASO % 0.4 % (0-2.0); EOS % 2.6 % (0-4.5); HEMATOCRIT 35.8 % (32.4-45.2); HEMOGLOBIN 12.8 GM/dL (10.7-15.3); LYMPH % 20.4 % (8-40); MCH 33.5 pg (25.7-33.7); MCHC 35.6 g/dl (32.0-36.0); MEAN PLT VOLUME 8.1 fl (7.5-11.1); MONO % 6.1 % (3.8-10.2); NEUT % 70.5 % (42.8-82.8); PLATELET COUNT 154 10^3/uL (134-434); RBC 3.81 M/mm3 (3.60-5.2); RDW 13.2 % (11.6-15.6); WHITE BLOOD COUNT 7.4 K/mm3 (4.0-10.0)
[2022-02-03 08:57] LABS: CALCIUM 8.6 mg/dL (8.5-10.1); MAGNESIUM 2.2 mg/dL (1.8-2.4)
[2022-02-03 08:58] LABS: ALBUMIN 3.6 g/dl (3.4-5.0)
[2022-02-03 08:59] LABS: BLOOD UREA NITROGEN 9.4 mg/dL (7-18)
[2022-02-03 09:00] LABS: CREATININE 0.8 mg/dL (0.55-1.3)
[2022-02-03 09:01] LABS: PHOSPHOROUS 3.3 mg/dL (2.5-4.9)
[2022-02-03 09:02] LABS: TOT PROT 6.8 g/dl (6.4-8.2)
[2022-02-03 09:03] LABS: BILIRUBIN,TOTAL 0.7 mg/dL (0.2-1)
[2022-02-03] MEDS: ENOXAPARIN NA (PORCINE) 40 MG/0.4 ML DISP.SYRIN SQ SCH (09:35)
[2022-02-03] MEDS: predniSONE 5 MG TABLET (UD) PO SCH (09:36)
[2022-02-03] MEDS: ATENOLOL 50 MG TABLET (FP) PO SCH (09:36)
[2022-02-03] MEDS: FAMOTIDINE 10 MG TABLET PO SCH (09:36)
[2022-02-03] MEDS ORDERED: LACTATED RINGERS SOLUTION 1,000 ML/1,000 ML INFUS.BAG IV SCH (12:15)
[2022-02-03] MEDS: LACTATED RINGERS SOLUTION 1,000 ML/1,000 ML INFUS.BAG IV SCH (12:41)
[2022-02-03] MEDS: ACETAMINOPHEN 325 MG TABLET (FP) PO PRN (16:24)
[2022-02-03] MEDS ORDERED: cefTRIAXone SODIUM 1 GM VIAL ONE (17:44)
[2022-02-03] MEDS ORDERED: DEXTROSE 5%-WATER - 50 ML IVPB ONE (17:44)
[2022-02-03 17:47] LABS: PH,URINE 7.5 (5.0-8.0); URINE APPEARANCE CLEAR; URINE BILIRUBIN NEGATIVE (NEGATIVE); URINE COLOR YELLOW; URINE GLUCOSE (UA) NEGATIVE (NEGATIVE); URINE KETONE NEGATIVE (NEGATIVE); URINE LEUK ESTERASE NEGATIVE (NEGATIVE); URINE NITRITE NEGATIVE (NEGATIVE); URINE PROTEIN NEGATIVE (NEGATIVE); URINE UROBILINOGEN 0.2 mg/dL (0.2-1.0)
[2022-02-03] MEDS: CEFTRIAXONE 1 GM in DEXTROSE 5%-WATER - 50 ML IVPB SCH (17:47)
[2022-02-03] MEDS: AZITHROMYCIN IVPB 500 MG/250 ML BAG IVPB SCH (18:36)
[2022-02-04] MEDS: LACTATED RINGERS SOLUTION 1,000 ML/1,000 ML INFUS.BAG IV SCH (04:21)
[2022-02-04 08:31] LABS: BASO % 0.8 % (0-2.0); EOS % 3.2 % (0-4.5); HEMATOCRIT 34.7 % (32.4-45.2); LYMPH % 29.5 % (8-40); MCH 32.7 pg (25.7-33.7); MCHC 34.6 g/dl (32.0-36.0); MEAN CELL VOLUME 94.4 fl (80-96); MEAN PLT VOLUME 8.3 fl (7.5-11.1); MONO % 6.5 % (3.8-10.2); PLATELET COUNT 159 10^3/uL (134-434); RBC 3.68 M/mm3 (3.60-5.2); RDW 12.8 % (11.6-15.6); WHITE BLOOD COUNT 6.8 K/mm3 (4.0-10.0)
[2022-02-04 08:45] LABS: CALCIUM 8.8 mg/dL (8.5-10.1)
[2022-02-04 08:46] LABS: ALBUMIN 3.5 g/dl (3.4-5.0)
[2022-02-04 08:49] LABS: CREATININE 0.7 mg/dL (0.55-1.3)
[2022-02-04 08:50] LABS: TOT PROT 6.5 g/dl (6.4-8.2)
[2022-02-04] MEDS ORDERED: cefTRIAXone SODIUM 1 GM VIAL ONE (09:23)
[2022-02-04] MEDS ORDERED: DEXTROSE 5%-WATER - 50 ML IVPB ONE (09:23)
[2022-02-04] MEDS: ENOXAPARIN NA (PORCINE) 40 MG/0.4 ML DISP.SYRIN SQ SCH (10:04)
[2022-02-04] MEDS: predniSONE 5 MG TABLET (UD) PO SCH (10:05)
[2022-02-04] MEDS: AZITHROMYCIN IVPB 500 MG/250 ML BAG IVPB SCH (10:05)
[2022-02-04] MEDS: ATENOLOL 50 MG TABLET (FP) PO SCH (10:05)
[2022-02-04] MEDS: FAMOTIDINE 10 MG TABLET PO SCH (10:05)
[2022-02-04] MEDS: CEFTRIAXONE 1 GM in DEXTROSE 5%-WATER - 50 ML IVPB SCH (10:06)
[2022-02-04 15:08] LABS: SARS-CoV-2 NAA Not Detected (Not Detected)
[2022-02-04] MEDS: LACTOBACILLUS ACIDOPHILUS 1 TABLET PO SCH ×2 (17:53→21:41)
[2022-02-05 07:43] LABS: BASO % 1.2 % (0-2.0); EOS % 4.7 % (0-4.5); HEMATOCRIT 33.5 % (32.4-45.2); HEMOGLOBIN 11.9 GM/dL (10.7-15.3); LYMPH % 35.7 % (8-40); MCH 33.2 pg (25.7-33.7); MCHC 35.3 g/dl (32.0-36.0); MEAN CELL VOLUME 94.1 fl (80-96); MEAN PLT VOLUME 8.7 fl (7.5-11.1); MONO % 7.6 % (3.8-10.2); NEUT % 50.8 % (42.8-82.8); PLATELET COUNT 146 10^3/uL (134-434); RBC 3.57 M/mm3 (3.60-5.2); RDW 12.9 % (11.6-15.6); WHITE BLOOD COUNT 5.3 K/mm3 (4.0-10.0)
[2022-02-05 08:09] LABS: CALCIUM 9.1 mg/dL (8.5-10.1)
[2022-02-05 08:10] LABS: ALBUMIN 3.5 g/dl (3.4-5.0); BLOOD UREA NITROGEN 9.5 mg/dL (7-18)
[2022-02-05 08:12] LABS: CREATININE 0.8 mg/dL (0.55-1.3)
[2022-02-05 08:15] LABS: BILIRUBIN,TOTAL 0.5 mg/dL (0.2-1); TOT PROT 6.5 g/dl (6.4-8.2)
[2022-02-05] MEDS ORDERED: cefTRIAXone SODIUM 1 GM VIAL ONE (09:02)
[2022-02-05] MEDS ORDERED: DEXTROSE 5%-WATER - 50 ML IVPB ONE (09:02)
[2022-02-05] MEDS: CEFTRIAXONE 1 GM in DEXTROSE 5%-WATER - 50 ML IVPB SCH (09:44)
[2022-02-05] MEDS: predniSONE 5 MG TABLET (UD) PO SCH (09:45)
[2022-02-05] MEDS: ATENOLOL 50 MG TABLET (FP) PO SCH (09:45)
[2022-02-05] MEDS: LACTOBACILLUS ACIDOPHILUS 1 TABLET PO SCH ×2 (09:45→22:39)
[2022-02-05] MEDS: FAMOTIDINE 10 MG TABLET PO SCH (09:45)
[2022-02-05] MEDS: ENOXAPARIN NA (PORCINE) 40 MG/0.4 ML DISP.SYRIN SQ SCH (09:46)
[2022-02-05] MEDS: AZITHROMYCIN IVPB 500 MG/250 ML BAG IVPB SCH (10:33)
[2022-02-05] MEDS: SODIUM CHLORIDE 1,000 ML IV SCH (16:16)
[2022-02-05] MEDS: ACETAMINOPHEN 325 MG TABLET (FP) PO PRN (16:23)
[2022-02-06] MEDS: SODIUM CHLORIDE 1,000 ML IV SCH ×2 (05:05→14:20)
[2022-02-06 09:05] LABS: BLOOD UREA NITROGEN 9.8 mg/dL (7-18); CALCIUM 8.9 mg/dL (8.5-10.1); MAGNESIUM 2.2 mg/dL (1.8-2.4)
[2022-02-06 09:07] LABS: ALBUMIN 3.3 g/dl (3.4-5.0); EOS % 5.7 % (0-4.5); HEMATOCRIT 33.9 % (32.4-45.2); HEMOGLOBIN 11.7 GM/dL (10.7-15.3); LYMPH % 37.8 % (8-40); MCH 32.9 pg (25.7-33.7); MCHC 34.6 g/dl (32.0-36.0); MEAN CELL VOLUME 95.1 fl (80-96); MEAN PLT VOLUME 8.3 fl (7.5-11.1); MONO % 7.6 % (3.8-10.2); NEUT % 47.9 % (42.8-82.8); PLATELET COUNT 168 10^3/uL (134-434); RBC 3.56 M/mm3 (3.60-5.2); RDW 12.9 % (11.6-15.6); WHITE BLOOD COUNT 4.8 K/mm3 (4.0-10.0)
[2022-02-06 09:09] LABS: CREATININE 0.8 mg/dL (0.55-1.3); PHOSPHOROUS 3.6 mg/dL (2.5-4.9)
[2022-02-06 09:11] LABS: BILIRUBIN,TOTAL 0.5 mg/dL (0.2-1); TOT PROT 6.4 g/dl (6.4-8.2)
[2022-02-06] MEDS: ENOXAPARIN NA (PORCINE) 40 MG/0.4 ML DISP.SYRIN SQ SCH (09:50)
[2022-02-06] MEDS: predniSONE 5 MG TABLET (UD) PO SCH (09:50)
[2022-02-06] MEDS: FAMOTIDINE 10 MG TABLET PO SCH (09:50)
[2022-02-06] MEDS: LACTOBACILLUS ACIDOPHILUS 1 TABLET PO SCH (09:50)
[2022-02-06] MEDS: ATENOLOL 50 MG TABLET (FP) PO SCH (09:50)
[2022-02-06] MEDS ORDERED: PSYLLIUM 5.85 GM PACKET PO SCH (10:00)
[2022-02-06] MEDS ORDERED: CEFTRIAXONE 1 GM in DEXTROSE 5%-WATER - 50 ML IVPB ONE (12:47)
[2022-02-06] MEDS ORDERED: DEXTROSE 5%-WATER - 50 ML IVPB ONE (14:11)
[2022-02-06] MEDS ORDERED: cefTRIAXone SODIUM 1 GM VIAL ONE (14:11)
[2022-02-06 15:20] VITALS: BP 154/78; PULSE 70; TEMP 98.1
== END 2022-02-06 18:33 | disposition home or self-care (01) ==
LOC: JER 19:17 → JERBED 02-03 03:01 → UNDOADMOB 02-03 03:24 → JERBED 02-03 03:24 → J7W 02-03 05:00
PROVIDERS: ADMIT Hospitalist; ATTEND Internal Medicine
PROC: 3E033NZ Introduction of Analgesics, Hypnotics, Sedatives into Peripheral Vein, Percutaneous Approach (ICD-10-PCS; principal; 2022-02-03)
PROC: 3E03329 Introduction of Other Anti-infective into Peripheral Vein, Percutaneous Approach (ICD-10-PCS; 2022-02-03)
PROC: 3E033GC Introduction of Other Therapeutic Substance into Peripheral Vein, Percutaneous Approach (ICD-10-PCS; 2022-02-03)
PROC: 3E023GC Introduction of Other Therapeutic Substance into Muscle, Percutaneous Approach (ICD-10-PCS; 2022-02-03)
PROC: 3E0337Z Introduction of Electrolytic and Water Balance Substance into Peripheral Vein, Percutaneous Approach (ICD-10-PCS; 2022-02-03)
DX: K85.90 Acute pancreatitis without necrosis or infection, unspecified (principal); K57.90 Diverticulosis of intestine, part unspecified, without perforation or abscess without bleeding; K25.4 Chronic or unspecified gastric ulcer with hemorrhage; R10.84 Generalized abdominal pain; I10 Essential (primary) hypertension; J30.2 Other seasonal allergic rhinitis; D64.9 Anemia, unspecified; R79.89 Other specified abnormal findings of blood chemistry; D33.2 Benign neoplasm of brain, unspecified; Z29.9 Encounter for prophylactic measures, unspecified; R50.9 Fever, unspecified; Z88.6 Allergy status to analgesic agent; Z85.3 Personal history of malignant neoplasm of breast
CPT/HCPCS: 36415; 71045-TC-FY; 71046-TC-FY; 74177-TC; 76705-TC; 80053; 81003; 83605; 83690; 83735; 84100; 84478; 84484; 85025; 87040; 87045; 87046; 87077; 87086; 87205; 87804; 87807; 93005; 93010; 96361; 96365; 96366; 96372; 96375; 99285-25; C9803-CS; G0378; U0003; U0005

== ENCOUNTER 2023-10-13 15:17 | Observation (INO) | payer OTHER ==
[2023-10-13] MEDS ORDERED: SODIUM CHLORIDE 1,000 ML IV SCH ×2 (15:30)
[2023-10-13 16:19] LABS: PH,URINE 6.5 (5.0-8.0); URINE APPEARANCE CLEAR; URINE BILIRUBIN NEGATIVE (NEGATIVE); URINE COLOR YELLOW; URINE GLUCOSE (UA) NEGATIVE (NEGATIVE); URINE KETONE NEGATIVE (NEGATIVE); URINE LEUK ESTERASE NEGATIVE (NEGATIVE); URINE NITRITE NEGATIVE (NEGATIVE); URINE PROTEIN NEGATIVE (NEGATIVE); URINE UROBILINOGEN 0.2 mg/dL (0.2-1.0)
[2023-10-13 16:20] LABS: BASO % 0.6 % (0-2.0); EOS % 3.8 % (0-4.5); HEMATOCRIT 39.8 % (32.4-45.2); HEMOGLOBIN 13.7 GM/dL (10.7-15.3); MCH 33.1 pg (25.7-33.7); MCHC 34.3 g/dl (32.0-36.0); MEAN CELL VOLUME 96.4 fl (80-96); MEAN PLT VOLUME 7.6 fl (7.5-11.1); MONO % 6.2 % (3.8-10.2); NEUT % 56.4 % (42.8-82.8); PLATELET COUNT 190 10^3/uL (134-434); RBC 4.13 M/mm3 (3.60-5.2); RDW 13.1 % (11.6-15.6); WHITE BLOOD COUNT 6.2 K/mm3 (4.0-10.0)
[2023-10-13 16:26] LABS: INR 1.19 (0.83-1.09); PROTHROMBIN TIME (PATIENT) 13.8 SEC (9.7-13.0)
[2023-10-13 16:28] LABS: ACTIVATED PTT 31.6 SECONDS (25.2-36.5)
[2023-10-13 16:33] VITALS: BMI 23.4
[2023-10-13 16:37] LABS: POTASSIUM 4.2 mmol/L (3.5-5.1)
[2023-10-13] MEDS ORDERED: ASPIRIN 325 MG TABLET PO ONE (16:37)
[2023-10-13] MEDS ORDERED: ASPIRIN 81 MG CHEWABLE TABLETS ONE (16:38)
[2023-10-13 16:39] LABS: CALCIUM 8.9 mg/dL (8.5-10.1)
[2023-10-13 16:44] LABS: TOT PROT 7.2 g/dl (6.4-8.2)
[2023-10-13 16:45] LABS: BILIRUBIN,TOTAL 0.6 mg/dL (0.2-1)
[2023-10-13] MEDS ORDERED: ENOXAPARIN NA (PORCINE) 60 MG/0.6 ML DISP.SYRIN SQ ONE (22:01)
[2023-10-13] MEDS ORDERED: LOSARTAN POTASSIUM 50 MG TABLET ONE (22:01)
[2023-10-13] MEDS: ENOXAPARIN NA (PORCINE) 60 MG/0.6 ML DISP.SYRIN SQ SCH (22:13)
[2023-10-13] MEDS: LOSARTAN POTASSIUM 50 MG TABLET PO SCH (22:14)
[2023-10-13] MEDS ORDERED: LOSARTAN POTASSIUM 50 MG TABLET PO ONE (23:56)
[2023-10-14] MEDS: PANTOPRAZOLE 40 MG TABLET PO SCH (07:01)
[2023-10-14 08:15] LABS: HEMATOCRIT 38.9 % (32.4-45.2); HEMOGLOBIN 13.4 GM/dL (10.7-15.3); MCH 33.4 pg (25.7-33.7); MCHC 34.4 g/dl (32.0-36.0); MEAN CELL VOLUME 96.9 fl (80-96); MEAN PLT VOLUME 8.3 fl (7.5-11.1); PLATELET COUNT 189 10^3/uL (134-434); RBC 4.02 M/mm3 (3.60-5.2); RDW 13.2 % (11.6-15.6); WHITE BLOOD COUNT 5.6 K/mm3 (4.0-10.0)
[2023-10-14 08:54] LABS: POTASSIUM 3.9 mmol/L (3.5-5.1)
[2023-10-14] MEDS: SERTRALINE HCL 50 MG TABLET (FP) PO SCH (09:05)
[2023-10-14] MEDS: LOSARTAN POTASSIUM 50 MG TABLET PO SCH (09:05)
[2023-10-14] MEDS: ATENOLOL 50 MG TABLET (FP) PO SCH (09:06)
[2023-10-14] MEDS: ENOXAPARIN NA (PORCINE) 60 MG/0.6 ML DISP.SYRIN SQ SCH (09:06)
[2023-10-14] MEDS: ASPIRIN COATED 81 MG TABLET.EC PO SCH (09:06)
[2023-10-14 09:08] LABS: CALCIUM 9.2 mg/dL (8.5-10.1)
[2023-10-14 09:09] LABS: BLOOD UREA NITROGEN 16.7 mg/dL (7-18); CREATININE 0.8 mg/dL (0.55-1.3)
[2023-10-14] MEDS ORDERED: PATIENT'S OWN MEDICATION (NON-FORMULARY) (Budesonide/Glycopyr/Formoterol [Breztri Aerosphe IN SCH (10:00)
[2023-10-14] MEDS ORDERED: ATORVASTATIN CA 80 MG TABLET (FP) PO SCH (22:00)
[2023-10-15] MEDS: PANTOPRAZOLE 40 MG TABLET PO SCH (06:19)
[2023-10-15 09:10] LABS: BASO % 0.7 % (0-2.0); EOS % 6.3 % (0-4.5); HEMATOCRIT 40.4 % (32.4-45.2); HEMOGLOBIN 13.8 GM/dL (10.7-15.3); LYMPH % 41.7 % (8-40); MCH 33.1 pg (25.7-33.7); MCHC 34.1 g/dl (32.0-36.0); MEAN CELL VOLUME 96.9 fl (80-96); MEAN PLT VOLUME 7.9 fl (7.5-11.1); MONO % 6.5 % (3.8-10.2); NEUT % 44.8 % (42.8-82.8); PLATELET COUNT 207 10^3/uL (134-434); RBC 4.17 M/mm3 (3.60-5.2); RDW 13.1 % (11.6-15.6); WHITE BLOOD COUNT 5.5 K/mm3 (4.0-10.0)
[2023-10-15 09:32] LABS: ALBUMIN 3.7 g/dl (3.4-5.0); CALCIUM 9.3 mg/dL (8.5-10.1)
[2023-10-15 09:33] LABS: BLOOD UREA NITROGEN 18.5 mg/dL (7-18)
[2023-10-15 09:36] LABS: CREATININE 0.9 mg/dL (0.55-1.3)
[2023-10-15 09:37] LABS: BILIRUBIN,TOTAL 0.9 mg/dL (0.2-1)
[2023-10-15] MEDS ORDERED: ENOXAPARIN NA (PORCINE) 40 MG/0.4 ML DISP.SYRIN SQ SCH (10:00)
[2023-10-15] MEDS: ATENOLOL 50 MG TABLET (FP) PO SCH (10:09)
[2023-10-15] MEDS: LOSARTAN POTASSIUM 50 MG TABLET PO SCH (10:09)
[2023-10-15] MEDS: SERTRALINE HCL 50 MG TABLET (FP) PO SCH (10:09)
[2023-10-15] MEDS: ASPIRIN COATED 81 MG TABLET.EC PO SCH (10:09)
[2023-10-15] MEDS ORDERED: ACETAMINOPHEN 325 MG TABLET (FP) PO ONE (10:30)
[2023-10-15 14:55] VITALS: BP 114/62; PULSE 76; RESP 16; TEMP 98.4
== END 2023-10-15 15:51 | disposition home or self-care (01) ==
LOC: JER 15:17 → JERBED 16:37 → J4S 10-14 04:02
PROVIDERS: ADMIT Internal Medicine; ATTEND Internal Medicine
PROC: 3E023GC Introduction of Other Therapeutic Substance into Muscle, Percutaneous Approach (ICD-10-PCS; principal; 2023-10-13)
DX: I16.0 Hypertensive urgency (principal); G45.9 Transient cerebral ischemic attack, unspecified; R77.8 Other specified abnormalities of plasma proteins; K21.9 Gastro-esophageal reflux disease without esophagitis; D32.9 Benign neoplasm of meninges, unspecified; M06.9 Rheumatoid arthritis, unspecified; J45.909 Unspecified asthma, uncomplicated; Z85.3 Personal history of malignant neoplasm of breast; Z90.10 Acquired absence of unspecified breast and nipple; Z88.6 Allergy status to analgesic agent
CPT/HCPCS: 0241U-QW; 36415; 70450-TC; 70496-TC; 70498-TC; 70551-TC; 80048; 80053; 80061; 81003; 82550; 82962; 83036; 84484; 85025; 85027; 85610; 85730; 86850; 86900; 86901; 93005; 93010; 93306-TC; 96372; 97116-GP; 97161-GP; 99285-25; G0378